=== PATIENT | male | born 2000 | race Caucasian/White ===

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

== ENCOUNTER 2022-01-13 14:02 | Inpatient (IN) | payer MEDICAID ==
[~2022-01-13] VITALS: Ht 180 cm; Wt 53.0 kg
[~2022-01-13 14:02] MED LIST changes: +ASCO500C17 PO; +CHOL10004 PO; +CRAN400C PO; +INSU100I48 SQ; +LISI10TA25 PO; +MTP25TSR PO; +MULT-1136 PO; +PANT40TA52 PO; +TRAZ-227 PO
[2022-01-13] MEDS ORDERED: NS IV 1000 ML 1,000 ML IV STA (14:51)
--- NOTE | 2022-01-13 14:54 | ED General ---
General Chief Complaint: Glucose Problems Stated Complaint: SOA- HEART RACING - UNABLE TO EAT Source of Information: Patient Exam Limitations: No Limitations History of Present Illness Date Seen by Provider: Jan 13, 2022 Time Seen by Provider: 14:52 Initial Comments Patient is a 21-year-old male who presents ED with multiple complaints. He states he lost his job, girlfriend, home, life about 1-1/2 weeks ago. He states he has been homeless. Over the past few days has not been taking his insulin. He states he has not been eating or drinking. Frequent urination. Heart palpitations and racing. Patient is tearful on arrival. He reports smoking marijuana without any other drug use or alcohol use. Some mild chest tightness without shortness of breath. Chronic cough for the past month every day smoker. Denies abdominal pain vomiting diarrhea, headache, dizziness. No thoughts of wanting to hurt himself or anyone else. Refused behavioral health exam. Denies fever, neck pain, visual changes, dysuria, hematuria Allergies and Home Medications Allergies Coded Allergies: NKANo Known Allergies (Unverified Allergy, Mild, 02/08/09) Patient Home Medication List Home Medication List Reviewed: Yes Cholecalciferol (Vitamin D3) (Vitamin D3) 25 Mcg Tablet, 25 MCG PO DAILY, (Reported) Entered as Reported by: ESTHER JOHNSON on 01/01/22 1045 Insulin Degludec (Tresiba Flextouch U-100) 100 Unit/1 Ml Insuln.pen, 40 UNIT SQ HS, (Reported) Entered as Reported by: ESTHER JOHNSON on 01/01/22 1045 Insulin Lispro (Insulin Lispro Kwikpen U-100) 100 Unit/1 Ml Insuln.pen, UNIT SQ AC, (Reported) Entered as Reported by: ESTHER JOHNSON on 01/01/22 1045 Lisinopril (Lisinopril) 10 Mg Tablet, 5 MG PO DAILY Prescribed by: GERARDO ENNIS on 01/02/22 0950 Multivitamin (Multivitamin) 1 Each Tablet, 1 EACH PO DAILY, (Reported) Entered as Reported by: ESTHER JOHNSON on 01/01/22 1045 Pantoprazole Sodium (Pantoprazole Sodium) 40 Mg Tablet.dr, 40 MG PO DAILY Prescribed by: GERARDO ENNIS on 01/02/22 0950 Trazodone HCl (Trazodone HCl) 100 Mg Tablet, 100 MG PO HS, (Reported) Entered as Reported by: ESTHER JOHNSON on 01/01/22 1045 Review of Systems Review of Systems Constitutional: No chills, No diaphoresis, No fever, No malaise EENTM: No hearing loss, No ear pain, No blurred vision, No double vision, No mouth pain, No mouth swelling, No throat pain, No throat swelling Respiratory: cough; No dyspnea on exertion, No short of breath Cardiovascular: No chest pain, No edema; palpitations Gastrointestinal: No abdominal pain; diarrhea, nausea, vomiting Genitourinary: No decreased output, No discharge Skin: No change in color, No change in hair/nails Psychiatric/Neurological: Denies Anxiety, Denies Depressed All Other Systems Reviewed Negative Unless Noted: Yes Past Bhccnqk-Qzbovw-Cojutv Hx Immunizations Up To Date Tetanus Booster (TDap): Less than 5yrs First/Initial COVID19 Vaccinat: Nov 2020 Second COVID19 Vaccination Parveen: December 2020 Third COVID19 Vaccination Date: Nov 2020 Seasonal Allergies Seasonal Allergies: No Past Medical History Surgery/Hospitalization HX: PMH: TYPE 1 DM. Surgeries: Yes (BMT'S) Ear Surgery Respiratory: Yes Asthma Currently Using CPAP: No Currently Using BIPAP: No Cardiac: No Neurological: No Reproductive Disorders: No Sexually Transmitted Disease: No HIV/AIDS: No Genitourinary: No Gastrointestinal: No Musculoskeletal: No Endocrine: Yes Diabetes, Insulin dep HEENT: Yes Chronic Ear Infection Loss of Vision: Denies Hearing Impairment: Denies Cancer: No Psychosocial: Yes Depression Integumentary: No Blood Disorders: No Family Medical History Cardiovascular disease 19 MOTHER Kidney disease 19 MOTHER Heart Disease, Renal Disease Physical Exam Vital Signs Vital Signs - First Documented 01/13/22 14:35 Temp 36.3 Pulse 97 Resp 16 B/P (MAP) 122/83 (96) Pulse Ox 100 O2 Delivery Room Air Capillary Refill : Height, Weight, BMI Height: 5'11.00" Weight: 130lbs. oz. 58.243113ga; 17.28 BMI Method:Actual General Appearance: No Apparent Distress, WD/WN Eyes: Bilateral Eye Normal Inspection, Bilateral Eye PERRL, Bilateral Eye EOMI HEENT: PERRL/EOMI, TMs Normal, Normal ENT Inspection, Pharynx Normal Neck: Full Range of Motion, Normal Inspection, Non Tender, Supple Respiratory: Chest Non Tender, Lungs Clear, Normal Breath Sounds, No Accessory Muscle Use, No Respiratory Distress Cardiovascular: Regular Rate, Rhythm, No Edema, No Gallop, No JVD Gastrointestinal: Normal Bowel Sounds, No Organomegaly, No Pulsatile Mass, Non Tender Back: Normal Inspection, No CVA Tenderness, No Vertebral Tenderness Extremity: Normal Capillary Refill, Normal Inspection, Normal Range of Motion, Non Tender, No Calf Tenderness Neurologic/Psychiatric: Alert, Oriented x3, No Motor/Sensory Deficits, Normal 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7 g/dL Hematocrit 53 40-54 % Mean Corpuscular Volume 90 80-99 fL Mean Corpuscular Hemoglobin 32 25-34 pg Mean Corpuscular Hemoglobin Concent 35 32-36 g/dL Red Cell Distribution Width 12.2 10.0-14.5 % Platelet Count 352 130-400 10^3/uL Mean Platelet Volume 10.0 9.0-12.2 fL Immature Granulocyte % (Auto) 2 % Neutrophils (%) (Auto) 65 42-75 % Lymphocytes (%) (Auto) 24 12-44 % Monocytes (%) (Auto) 7 0-12 % Eosinophils (%) (Auto) 2 0-10 % Basophils (%) (Auto) 1 0-10 % Neutrophils # (Auto) 6.9 1.8-7.8 10^3/uL Lymphocytes # (Auto) 2.5 1.0-4.0 10^3/uL Monocytes # (Auto) 0.7 0.0-1.0 10^3/uL Eosinophils # (Auto) 0.2 0.0-0.3 10^3/uL Basophils # (Auto) 0.1 0.0-0.1 10^3/uL Immature Granulocyte # (Auto) 0.2 H 0.0-0.1 10^3/uL Sodium Level 132 L 135-145 MMOL/L Potassium Level 4.9 3.6-5.0 MMOL/L Chloride Level 99 98-107 MMOL/L Carbon Dioxide Level 8 *L 21-32 MMOL/L Anion Gap 25 H 5-14 MMOL/L Blood Urea Nitrogen 12 7-18 MG/DL Creatinine 1.70 H 0.60-1.30 MG/DL Estimat Glomerular Filtration Rate 59 BUN/Creatinine Ratio 7 Glucose Level 381 H 70-105 MG/DL Calcium Level 9.3 8.5-10.1 MG/DL Corrected Calcium 8.5-10.1 MG/DL Total Bilirubin 0.5 0.1-1.0 MG/DL Aspartate Amino Transf (AST/SGOT) 19 5-34 U/L Alanine Aminotransferase (ALT/SGPT) 34 0-55 U/L Alkaline Phosphatase 131 40-136 U/L Troponin I < 0.028 <0.028 NG/ML Total Protein 8.9 H 6.4-8.2 GM/DL Albumin 4.6 H 3.2-4.5 GM/DL Lipase 32 8-78 U/L Beta-Hydroxybutyrate (Chem panel) 11.53 H 0.00-0.27 MMOL/L Serum Alcohol < 10 <10 MG/DL Blood Gas Puncture Site UNK Blood Gas Patient Temperature 36.3 Arterial Blood pH 7.17 *L 7.37-7.43 Arterial Blood Partial Pressure CO2 11 *L 35-45 MMHG Arterial Blood Partial Pressure O2 110 H 79-93 MMHG Arterial Blood HCO3 4 *L 23-27 MMOL/L Arterial Blood Total CO2 4.1 *L 21.0-31.0 MMOL/L Arterial Blood Oxygen Saturation 98 94-100 % Arterial Blood Base Excess -24.0 L -2.5-2.5 MMOL/L Lloyd Test UNK Blood Gas Ventilator Setting NO Blood Gas Inspired Oxygen UNK My Orders Orders - IVAN PRIETO Cbc With Automated Diff (01/13/22 14:49) Comprehensive Metabolic Panel (01/13/22 14:49) Beta Hydroxybutyrate (01/13/22 14:49) Ua Culture If Indicated (01/13/22 14:49) Alcohol (01/13/22 14:49) Drug Screen Stat (Urine) (01/13/22 14:49) Ekg Tracing (01/13/22 14:49) Troponin I Kang (01/13/22 14:49) Chest 1 View, Ap/Pa Only (01/13/22 14:49) Lipase (01/13/22 14:49) Ns Iv 1000 Ml (Sodium Chloride 0.9%) (01/13/22 14:51) Arterial Blood Gas (01/13/22 15:26) Insulin (Regular) Human (Novolin R (Per (01/13/22 15:30) Insulin (Regular) Human (Novolin R (Per (01/13/22 15:33) Ed Admission (Communication) (01/13/22 16:41) Medications Given in ED Current Medications Medications Dose Ordered Sig/Stephanie Route Start Time Stop Time Status Last Admin Dose Admin Insulin Human Regular 10 unit ONCE ONCE IV 01/13/22 15:30 01/13/22 15:32 DC 01/13/22 15:34 10 UNIT Vital Signs/I&O 01/13/22 14:35 Temp 36.3 Pulse 97 Resp 16 B/P (MAP) 122/83 (96) Pulse Ox 100 O2 Delivery Room Air Capillary Refill : Point of Care Testing Finger Stick Blood Glucose: 350 ECG Comment Sinus rhythm, borderline short FL interval, 81 bpm, QRS duration 72 MS, QTc 436 MS Departure Communication (Admissions) Patient currently in DKA. Anion gap at 25. Slightly dehydrated. Was given a liter of fluid. Normal potassium. Patient Was given 10 units of IV insulin with a blood sugar 381. Bicarb of 5. Vital signs stable. History of DKA in the past. Elevated beta hydroxybutyrate. discussed patient with Dr. Ennis who accepts patient ICU. pH 7.17. Patient without any thoughts of wanting to hurt himself or anyone else. Patient appears emotional. Impression Primary Impression: DKA (diabetic ketoacidosis) Disposition: ADMITTED INPATIENT Condition: Stable Admissions Decision to Admit Reason: Admit from ER (Trauma) Decision to Admit/Date: Jan 13, 2022 Time/Decision to Admit Time: 16:40 Departure-Patient Inst. Referrals: GERARDO ENNIS DO (PCP/Family) Primary Care Physician IVAN PRIETO Jan 13, 2022 14:54
[2022-01-13 14:56] LABS: BASOPHILS # (AUTO) 0.1 10^3/uL (0.0-0.1); BASOPHILS % (AUTO) 1 % (0-10); EOSINOPHILS # (AUTO) 0.2 10^3/uL (0.0-0.3); EOSINOPHILS % (AUTO) 2 % (0-10); HEMATOCRIT 53 % (40-54); HEMOGLOBIN 18.6 g/dL (13.3-17.7); LYMPHOCYTES # (AUTO) 2.5 10^3/uL (1.0-4.0); LYMPHOCYTES % (AUTO) 24 % (12-44); MEAN CORPUSCULAR HEMOGLOBIN 32 pg (25-34); MEAN CORPUSCULAR HGB CONC 35 g/dL (32-36); MEAN CORPUSCULAR VOLUME 90 fL (80-99); MONOCYTES # (AUTO) 0.7 10^3/uL (0.0-1.0); MONOCYTES % (AUTO) 7 % (0-12); NEUTROPHILS # (AUTO) 6.9 10^3/uL (1.8-7.8); NEUTROPHILS % (AUTO) 65 % (42-75); PLATELET COUNT 352 10^3/uL (130-400); WHITE BLOOD COUNT 10.6 10^3/uL (4.3-11.0)
[2022-01-13 15:09] LABS: ALBUMIN 4.6 GM/DL (3.2-4.5); CHLORIDE 99 MMOL/L (98-107); POTASSIUM 4.9 MMOL/L (3.6-5.0); SODIUM 132 MMOL/L (135-145)
[2022-01-13 15:10] LABS: CALCIUM 9.3 MG/DL (8.5-10.1)
[2022-01-13 15:11] LABS: GLUCOSE 381 MG/DL (70-105); TOTAL PROTEIN 8.9 GM/DL (6.4-8.2)
[2022-01-13 15:13] LABS: BILIRUBIN,TOTAL 0.5 MG/DL (0.1-1.0)
[2022-01-13 15:15] LABS: ALKALINE PHOSPHATASE 131 U/L (40-136); GFR ESTIMATED 59
[2022-01-13 15:16] LABS: BUN/CREATININE RATIO 7
[2022-01-13 15:18] LABS: ALANINE AMINOTRANSFERASE 34 U/L (0-55); LIPASE 32 U/L (8-78)
--- NOTE | 2022-01-13 15:22 | Diagnostic Imaging Report ---
INDICATION: Ketoacidosis. TIME OF EXAM: 3:12 PM. COMPARISON: Correlation is made with the prior chest from 12/05/2020. FINDINGS: The heart size is normal. The pulmonary vascularity is unremarkable. The lungs are clear. No infiltrate, effusion, or pneumothorax is detected. IMPRESSION: No acute cardiopulmonary process is detected. Dictated by: Dictated on workstation # [id number]
[2022-01-13 15:23] LABS: CARBON DIOXIDE 8 MMOL/L (21-32)
[2022-01-13] MEDS ORDERED: inSUlin (REGULAR) HUMAN 1 UNIT/0.01 ML (CHARGE PER UNIT) IV ONE (15:30)
[2022-01-13] MEDS ORDERED: inSUlin (REGULAR) HUMAN 1 UNIT/0.01 ML (CHARGE PER UNIT) ONE (15:33)
[2022-01-13 15:49] LABS: ABG OXYGEN SATURATION 98 % (94-100); ABG PO2 110 MMHG (79-93)
[2022-01-13 15:53] LABS: ABG PCO2 11 MMHG (35-45); ABG PH 7.17 (7.37-7.43)
[2022-01-13 15:54] LABS: ABG TCO2 4.1 MMOL/L (21.0-31.0); PATIENT TEMP 36.3; VENTILATOR NO
[2022-01-13 17:00] VITALS: BP 107/62
[2022-01-13] MEDS ORDERED: ACETAMINOPHEN 325 MG TABLET PO PRN (17:30)
[2022-01-13] MEDS ORDERED: NS IV 1000 ML 1,000 ML IV SCH (17:30)
[2022-01-13] MEDS ORDERED: ENOXAPARIN 40 MG/0.4 ML (LOVENOX) SYR SC SCH (17:30)
[2022-01-13] MEDS ORDERED: ONDANSETRON 4 MG/2 ML (SDV) Z0FRAN IVP PRN (17:30)
[2022-01-13] MEDS ORDERED: POTASSIUM CL 10MEQ/50ML IVPB 50 ML IV SCH (17:30)
--- NOTE | 2022-01-13 17:50 | Tele-ICU Consult ---
History of Present Illness History of Present Illness Date Seen by Provider: Jan 13, 2022 Time Seen by Provider: 17:49 Date of Admission (Tele-ICU Physician , consultation) Available chart/ vitals / labs / Images reviewed H&P is from ER notes Patient's information available about PMH, Shx, Fhx allergy reviewed in EMR. ROS as per chart and RN report Now in ICU, hemodynamically stable AAO , on RA Video assessment done using teleICU camera, rest of exam as per RN Discussed with RN. Consultants: Hospital course: A/P DKA *Insulin drip continue to monitor for resolution of acidosis, AG and electrolytes. Continue hydration. MIRTHA - dehydration, hypotension - cont IVF - follow closely Leukocytosis - reactive ? , chest x-ray was normal , UA not done >off ABX , follow Lines : peroph (Central Line Necessity Reviewed) Moreno: OG: Nutrition: Analgesia: Anxiety/ delirium VTE Prophylaxis: yuli 40 Stress Ulcer Prophylaxis: na Plans in collaboration with bedside consultants and IM MDs. Discussed with RN to reach out if any questions or concerns A total of 20 minutes of critical care time was devoted to this patient today, required to treat and/or prevent further deterioration of critical care condition ( as above ) . Allergies and Home Medications Allergies Coded Allergies: NKANo Known Allergies (Unverified Allergy, Mild, 02/08/09) Home Medications Cholecalciferol (Vitamin D3) 25 Mcg Tablet, 25 MCG PO DAILY, (Reported) Insulin Degludec 100 Unit/1 Ml Insuln.pen, 40 UNIT SQ HS, (Reported) LAST FILLED 09-08-2021 #5 PENS/30 DAY SUPPLY Insulin Lispro 100 Unit/1 Ml Insuln.pen, UNIT SQ AC, (Reported) LAST FILLED 07-29-2021 #5 PENS Lisinopril 10 Mg Tablet, 5 MG PO DAILY Changed to 1/2 tablet daily--5mg Prescribed by: GERARDO ENNIS on 01/02/22 0950 Multivitamin 1 Each Tablet, 1 EACH PO DAILY, (Reported) Pantoprazole Sodium 40 Mg Tablet.dr, 40 MG PO DAILY Prescribed by: GERARDO ENNIS on 01/02/22 0950 Trazodone HCl 100 Mg Tablet, 100 MG PO HS, (Reported) LAST FILLED 10-06-2021 #30/30 DAY SUPPLY Past Medical/Social/Family Hx Patient Social History Smoking Status: Current Everyday Smoker Substance use?: Yes Substance type: Marijuana Alcohol Use?: No Immunizations Up To Date First/Initial COVID19 Vaccinat: Nov 2020 Second COVID19 Vaccination Parveen: UNKNOWN DATE Current Status Advance Directives: No Primary Language: Icelandic Preferred Spoken Language: Icelandic Review of Systems Constitutional: see HPI Focused Exam Height, Weight, BMI Height: 5'11.00" Weight: 130lbs. oz. 58.277900gl; 16.00 BMI Method:Actual Exam Exam Patient acknowledged, consented, and participated in this virtual visit which was conducted using real time audio/video Vital Signs Date Time Temp Pulse Resp B/P (MAP) Pulse Ox O2 Delivery O2 Flow Rate FiO2 01/13/22 17:00 85 16 107/62 98 Room Air 01/13/22 14:35 36.3 97 16 122/83 (96) 100 Room Air Height & Weight Height: 5'11.00" Weight: 130lbs. oz. 58.039988sd; 16.00 BMI Method:Actual General Appearance: No Apparent Distress, WD/WN HEENT: PERRL/EOMI, TMs Normal, Normal ENT Inspection, Pharynx Normal Neck: Full Range of Motion, Normal Inspection, Non Tender, Supple Respiratory: Chest Non Tender, Lungs Clear, Normal Breath Sounds, No Accessory Muscle Use, No Respiratory Distress Cardiovascular: Regular Rate, Rhythm, No Edema, No Gallop, No JVD Capillary Refill: Less Than 3 Seconds Extremity: Normal Capillary Refill, Normal Inspection, Normal Range of Motion, Non Tender, No Calf Tenderness Neurologic/Psychiatric: Alert, Oriented x3, No Motor/Sensory Deficits, Normal 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
[2022-01-13] MEDS: D5 1/2 NS 1000 ML IV SOLUTION 1,000 ML IV SCH (18:03)
[2022-01-13] MEDS: ENOXAPARIN INJECTION 30 MG/0.3 ML SYR SC SCH (18:07)
[2022-01-13] MEDS: POTASSIUM CL 10MEQ/50ML IVPB 50 ML IV SCH ×3 (18:17→22:51)
[2022-01-13 18:40] LABS: CHLORIDE 105 MMOL/L (98-107); POTASSIUM 4.5 MMOL/L (3.6-5.0); SODIUM 135 MMOL/L (135-145)
[2022-01-13 18:41] LABS: CALCIUM 8.8 MG/DL (8.5-10.1)
[2022-01-13 18:42] LABS: GLUCOSE 165 MG/DL (70-105)
[2022-01-13 18:46] LABS: BUN/CREATININE RATIO 8; CREATININE SERUM 1.45 MG/DL (0.60-1.30); GFR ESTIMATED 71
[2022-01-13 18:48] LABS: CARBON DIOXIDE < 5 MMOL/L (21-32)
[2022-01-13] MEDS: buPROPion 75 MG (WELLBUTRIN) TAB PO SCH (20:35)
[2022-01-13] MEDS: FAMOTIDINE 20MG/2ML IV (PEPCID) IVP SCH (20:35)
[2022-01-13] MEDS: 1/2 NS IV SOLUTION 1,000 ML IV SCH ×2 (20:35→22:01)
[2022-01-13 20:50] LABS: CALCIUM 7.5 MG/DL (8.5-10.1); CREATININE SERUM 1.39 MG/DL (0.60-1.30); POTASSIUM 4.5 MMOL/L (3.6-5.0)
[2022-01-14] MEDS: POTASSIUM CL 10MEQ/50ML IVPB 50 ML IV SCH ×7 (00:30→10:53)
[2022-01-14 00:34] LABS: POTASSIUM 3.7 MMOL/L (3.6-5.0)
[2022-01-14 00:35] LABS: CALCIUM 7.4 MG/DL (8.5-10.1)
[2022-01-14 00:39] LABS: CREATININE SERUM 1.02 MG/DL (0.60-1.30)
[2022-01-14] MEDS: 1/2 NS IV SOLUTION 1,000 ML IV SCH ×3 (01:57→11:59)
[2022-01-14 04:27] LABS: BASOPHILS # (AUTO) 0.1 10^3/uL (0.0-0.1); BASOPHILS % (AUTO) 1 % (0-10); EOSINOPHILS # (AUTO) 0.2 10^3/uL (0.0-0.3); EOSINOPHILS % (AUTO) 3 % (0-10); HEMATOCRIT 38 % (40-54); HEMOGLOBIN 13.6 g/dL (13.3-17.7); LYMPHOCYTES # (AUTO) 3.7 10^3/uL (1.0-4.0); LYMPHOCYTES % (AUTO) 42 % (12-44); MEAN CORPUSCULAR HEMOGLOBIN 31 pg (25-34); MEAN CORPUSCULAR HGB CONC 36 g/dL (32-36); MEAN CORPUSCULAR VOLUME 86 fL (80-99); MEAN PLATELET VOLUME 9.6 fL (9.0-12.2); MONOCYTES # (AUTO) 0.8 10^3/uL (0.0-1.0); MONOCYTES % (AUTO) 9 % (0-12); NEUTROPHILS % (AUTO) 45 % (42-75); PLATELET COUNT 233 10^3/uL (130-400); WHITE BLOOD COUNT 8.9 10^3/uL (4.3-11.0)
[2022-01-14 04:34] LABS: POTASSIUM 3.5 MMOL/L (3.6-5.0)
[2022-01-14 04:35] LABS: CALCIUM 7.5 MG/DL (8.5-10.1)
[2022-01-14 04:36] LABS: TOTAL PROTEIN 5.5 GM/DL (6.4-8.2)
[2022-01-14 04:38] LABS: BILIRUBIN,TOTAL 0.5 MG/DL (0.1-1.0)
[2022-01-14 04:40] LABS: CREATININE SERUM 0.99 MG/DL (0.60-1.30)
[2022-01-14 05:30] LABS: CLARITY,URINE SL CLOUDY; COLOR,URINE YELLOW; GLUCOSE, URINE (UA) 2+ (NEGATIVE); KETONES,URINE 2+ (NEGATIVE); LEUKOCYTE ESTERASE ,URINE NEGATIVE (NEGATIVE); NITRITE,URINE NEGATIVE (NEGATIVE); PROTEIN,URINE TRACE (NEGATIVE)
[2022-01-14 05:45] LABS: BACTERIA,URINE NEGATIVE /HPF; BILIRUBIN,URINE 1+ (NEGATIVE); HYALINE CASTS, URINE 0-2 /LPF; SQUAMOUS EPITHELIAL CELL,UR RARE /HPF; URINE OTHER FEW SPERM /HPF
[2022-01-14] MEDS: D5 1/2 NS 1000 ML IV SOLUTION 1,000 ML IV SCH ×2 (07:00→10:52)
[2022-01-14 07:36] LABS: POTASSIUM 3.6 MMOL/L (3.6-5.0)
[2022-01-14 07:37] LABS: CALCIUM 7.8 MG/DL (8.5-10.1)
[2022-01-14 07:41] LABS: CREATININE SERUM 0.95 MG/DL (0.60-1.30)
[2022-01-14] MEDS: FAMOTIDINE 20MG/2ML IV (PEPCID) IVP SCH ×2 (09:07→20:33)
[2022-01-14] MEDS: buPROPion 75 MG (WELLBUTRIN) TAB PO SCH ×3 (09:07→20:42)
[2022-01-14 10:08] LABS: CALCIUM 8.2 MG/DL (8.5-10.1); CREATININE SERUM 1.02 MG/DL (0.60-1.30); POTASSIUM 3.4 MMOL/L (3.6-5.0)
--- NOTE | 2022-01-14 11:19 | Tele-ICU Progress Note ---
Subjective Date Seen by a Provider: Jan 14, 2022 Time Seen by a Provider: 09:15 Subjective/Events-last exam (Tele-ICU Physician , consultation) Available chart/ vitals / labs / Images reviewed H&P is from ER notes Patient's information available about PMH, Shx, Fhx allergy reviewed in EMR. ROS as per chart and RN report Now in ICU, hemodynamically stable AAO , on RA Video assessment done using teleICU camera, rest of exam as per RN Discussed with RN. Consultants: A/P DKA *Insulin drip continue to monitor for resolution of acidosis, AG and electrolytes. Continue hydration. MIRTHA - dehydration, - IMPROVED - cont IVF - follow closely Leukocytosis - reactive ? , chest x-ray was normal , UA not done >off ABX , follow Lines : peroph (Central Line Necessity Reviewed) Moreno: OG: Nutrition: Analgesia: Anxiety/ delirium VTE Prophylaxis: yuli 40 Stress Ulcer Prophylaxis: na Plans in collaboration with bedside consultants and IM MDs. Discussed with RN to reach out if any questions or concerns A total of 13 minutes of critical care time was devoted to this patient today, required to treat and/or prevent further deterioration of critical care condition ( as above ) . Sepsis Event Evaluation Height, Weight, BMI Height: 5'11.00" Weight: 130lbs. oz. 58.620577dy; 16.00 BMI Method:Actual Exam Exam Patient acknowledged, consented, and participated in this virtual visit which was conducted using real time audio/video Vital Signs Date Time Temp Pulse Resp B/P (MAP) Pulse Ox O2 Delivery O2 Flow Rate FiO2 01/14/22 08:00 98 Room Air 01/14/22 08:00 36.5 01/14/22 07:00 82 01/14/22 06:00 72 14 105/59 99 Room Air 01/14/22 05:00 74 19 106/60 97 Room Air 01/14/22 04:00 64 10 106/61 100 Room Air 01/14/22 04:00 36.2 01/14/22 04:00 98 Room Air 01/14/22 03:00 70 17 104/61 98 Room Air 01/14/22 02:00 70 8 94/51 99 Room Air 01/14/22 01:00 76 01/14/22 01:00 76 20 101/59 97 Room Air 01/14/22 00:00 87 19 107/57 97 Room Air 01/14/22 00:00 98 Room Air 01/13/22 23:59 37.2 80 Room Air 01/13/22 23:00 75 20 109/60 98 Room Air 01/13/22 22:00 81 12 111/66 100 Room Air 01/13/22 21:00 79 17 97/61 100 Room Air 01/13/22 20:00 36.5 Room Air 01/13/22 20:00 36.5 01/13/22 20:00 77 16 114/68 100 Room Air 01/13/22 20:00 98 Room Air 01/13/22 19:00 78 25 122/68 100 Room Air 01/13/22 19:00 78 01/13/22 18:19 98 01/13/22 18:19 98 01/13/22 18:00 83 16 117/77 100 Room Air 01/13/22 17:00 90 7 122/80 100 Room Air 01/13/22 17:00 85 16 107/62 98 Room Air 01/13/22 14:35 36.3 97 16 122/83 (96) 100 Room Air I & O 01/14/22 07:00 Intake Total 1770 ml Output Total 1000 ml Balance 770 ml Height & Weight Height: 5'11.00" Weight: 130lbs. oz. 58.820056sx; 16.00 BMI Method:Actual General Appearance: No Apparent Distress, WD/WN HEENT: PERRL/EOMI, TMs Normal, Normal ENT Inspection, Pharynx Normal Neck: Full Range of Motion, Normal Inspection, Non Tender, Supple Respiratory: Chest Non Tender, Lungs Clear, Normal Breath Sounds, No Accessory Muscle Use, No Respiratory Distress Cardiovascular: Regular Rate, Rhythm, No Edema, No Gallop, No JVD Capillary Refill: Less Than 3 Seconds Extremity: Normal Capillary Refill, Normal Inspection, Normal Range of Motion, Non Tender, No Calf Tenderness Neurologic/Psychiatric: Alert, Oriented x3, No Motor/Sensory Deficits, Normal Mood/Affect, patient monitor II-XII Norm as Tested Skin: Normal Color, Warm/Dry Results Lab Laboratory Tests 01/13/22 14:47 01/13/22 17:50 01/13/22 20:10 01/14/22 00:10 01/14/22 04:18 01/14/22 07:14 01/14/22 09:36 Assessment/Plan Assessment/Plan ` AYLIN JACOBSON MD Jan 14, 2022 11:19
[2022-01-14] MEDS ORDERED: ASCO500T17 PO (11:41)
[2022-01-14] MEDS ORDERED: LISI10TA25 PO (11:41)
[2022-01-14] MEDS ORDERED: [UNRECOGNIZED DRUG - CODE] PO (11:41)
[2022-01-14 12:26] LABS: POTASSIUM 3.6 MMOL/L (3.6-5.0)
[2022-01-14 12:28] LABS: CALCIUM 8.1 MG/DL (8.5-10.1)
[2022-01-14 12:32] LABS: CREATININE SERUM 0.88 MG/DL (0.60-1.30)
--- NOTE | 2022-01-14 12:50 | History & Physical ---
History of Present Illness History of Present Illness Reason for visit/HPI This is a 21 yo male with known Type I diabetes mellitus with a history of noncompliance and recurrent DKA episode due to noncompliance. He had a recent admission for DKA less than 2 weeks ago. He was seen in my office yesterday in follow up on that hospital visit since he missed his 1 week follow up and stated he had not take any insulin or been checking his blood sugar for 3 days because his world was falling apart. He denied suicidal ideation but stated he just didn't care. He was using the f-word frequently and stated he was not eating or drinking and was very dehydrated and likely in DKA again but refused to be admitted. He did admit to depression and stated he had reached out to [facility] to see a counselor but did not have an appointment scheduled yet. He later called my office stating he wanted admission then called back within 30 minutes stating he was tired of f---ing waiting on us and was just going to go to the emergency room. He was evaluated in the ER and was found to once again be in DKA. He will be admitted to the ICU on an insulin drip with DKA protocol. Date of Admission Jan 13, 2022 at 16:42 Date Seen by a Provider: Jan 14, 2022 Time Seen by a Provider: 08:30 I consulted on this patient on 01/14/22 12:45 Attending Physician Gerardo Luther DO Admitting Physician Gerardo Luther DO Consult Allergies and Home Medications Allergies Coded Allergies: NKANo Known Allergies (Unverified Allergy, Mild, 02/08/09) Patient Home Medication List Home Medication List Reviewed: Yes Ascorbic Acid (Vitamin C) 500 Mg Tablet, 500 MG PO DAILY, (Reported) Entered as Reported by: ESTHER JOHNSON on 01/14/22 1141 Last Action: Reviewed Cholecalciferol (Vitamin D3) (Vitamin D3) 25 Mcg Tablet, 25 MCG PO DAILY, (Reported) Entered as Reported by: ESTHER JOHNSON on 01/01/22 1045 Last Action: Reviewed Insulin Degludec (Tresiba Flextouch U-100) 100 Unit/1 Ml Insuln.pen, 40 UNIT SQ HS, (Reported) Entered as Reported by: ESTHER JOHNSON on 01/01/22 1045 Last Action: Reviewed Insulin Lispro (Insulin Lispro Kwikpen U-100) 100 Unit/1 Ml Insuln.pen, UNIT SQ AC, (Reported) Entered as Reported by: ESTHER JOHNSON on 01/01/221044 Last Action: Reviewed Lisinopril (Lisinopril) 10 Mg Tablet, 5 MG PO 1800, (Reported) Entered as Reported by: ESTHER JOHNSON on 01/14/221140 Last Action: Reviewed Multivitamin (Multivitamin) 1 Each Tablet, 1 EACH PO DAILY, (Reported) Entered as Reported by: ESTHER JOHNSON on 01/01/221044 Last Action: Reviewed Trazodone HCl (Trazodone HCl) 100 Mg Tablet, 100 MG PO HS PRN for SLEEP, (Reported) Entered as Reported by: ESTHER JOHNSON on 01/01/221044 Last Action: Reviewed Zinc Citrate (Zinc) 16.7 Mg Tab.chew, 16.7 MG PO DAILY, (Reported) Entered as Reported by: ESTHER JOHNSON on 01/14/221140 Last Action: Reviewed Discontinued Medications Lisinopril (Lisinopril) 10 Mg Tablet, 5 MG PO DAILY Discontinued Reason: No Longer Taking Prescribed by: GERARDO LUTHER on 01/02/22949 Last Action: Discontinued Pantoprazole Sodium (Pantoprazole Sodium) 40 Mg Tablet.dr, 40 MG PO DAILY Discontinued Reason: No Longer Taking Prescribed by: GERARDO LUTHER on 01/02/22949 Last Action: Discontinued Past [place]-Klbhiq-Rzflbd Hx Patient Social History Smoking Status: Current Everyday Smoker Substance use?: Yes Substance type: Marijuana Alcohol Use?: No Immunizations Up To Date Date of Influenza Vaccine: Aug 05, 2020 First/Initial COVID19 Vaccinat: Nov 2020 Second COVID19 Vaccination Parveen: UNKNOWN DATE Seasonal Allergies Seasonal Allergies: No Current Status Advance Directives: No Primary Language: Burmese Preferred Spoken Language: Burmese Past Medical History Surgeries: Ear Surgery Asthma Currently Using CPAP: No Currently Using BIPAP: No Sexually Transmitted Disease: No HIV/AIDS: No Diabetes, Insulin dep Chronic Ear Infection Loss of Vision: Denies Hearing Impairment: Denies Depression Blood Disorders: No Family Medical History Cardiovascular disease 19 MOTHER Kidney disease 19 MOTHER Heart Disease, Renal Disease Review of Systems Constitutional: weakness, weight loss EENTM: No see HPI, No no symptoms reported, No ear discharge, No hearing loss, No ear pain, No blurred vision, No double vision, No eye pain, No tearing, No vision loss, No dental problems, No hoarseness, No mouth pain, No mouth swelling, No epistaxis, No nose congestion, No nose pain, No throat pain, No throat swelling, No other Respiratory: No no symptoms reported, No see HPI, No cough, No dyspnea on exertion, No hemoptysis, No orthopnea, No phlegm, No short of breath, No strido r, No wheezing, No other Cardiovascular: No no symptoms reported, No see HPI, No chest pain, No edema, No Hx of Intervention, No palpitations, No syncope, No vascular heart diseas, No other Gastrointestinal: loss of appetite, nausea Genitourinary: No no symptoms reported, No see HPI, No decreased output, No discharge, No dysuria, No frequency, No hematuria, No hesitancy, No incontinence, No nocturia, No pain, No other Musculoskeletal: No no symptoms reported, No see HPI, No back pain, No gout, No joint pain, No joint swelling, No muscle pain, No muscle stiffness, No muscle cramps, No muscle twitching, No muscle weakness, No neck pain, No other Skin: No no symptoms reported, No see HPI, No change in color, No change in hair/nails, No dryness, No hx of skin cancer, No lesions, No lumps, No pruritus, No rash, No other Psychiatric/Neurological: Depressed Physical Exam Vital Signs Vital Signs - First Documented 01/13/22 14:35 Temp 36.3 Pulse 97 Resp 16 B/P (MAP) 122/83 (96) Pulse Ox 100 O2 Delivery Room Air Capillary Refill : Less Than 3 Seconds Height, Weight, BMI Height: 5'11.00" Weight: 130lbs. oz. 58.295020wb; 16.00 BMI Method:Actual General Appearance: No Apparent Distress HEENT: Other (MM dry) Respiratory: Lungs Clear Cardiovascular: Regular Rate, Rhythm Gastrointestinal: Normal Bowel Sounds, Non Tender, Soft Rectal: Deferred Back: No CVA Tenderness Extremity: Non Tender, No Calf Tenderness, No Pedal Edema Neurologic/Psychiatric: Alert, Oriented x3, Depressed Affect Skin: Warm/Dry Comments Laboratory Tests 01/13/22 14:46: Glucometer 350H 01/13/22 14:47: White Blood Count 10.6, Red Blood Count 5.87H, Hemoglobin 18.6H, Hematocrit 53, Mean Corpuscular Volume 90, Mean Corpuscular Hemoglobin 32, Mean Corpuscular Hemoglobin Concent 35, Red Cell Distribution Width 12.2, Platelet Count 352, Mean Platelet Volume 10.0, Immature Granulocyte % (Auto) 2, Neutrophils (%) (Auto) 65, Lymphocytes (%) (Auto) 24, Monocytes (%) (Auto) 7, Eosinophils (%) (Auto) 2, Basophils (%) (Auto) 1, Neutrophils # (Auto) 6.9, Lymphocytes # (Auto) 2.5, Monocytes # (Auto) 0.7, Eosinophils # (Auto) 0.2, Basophils # (Auto) 0.1, Immature Granulocyte # (Auto) 0.2H, Sodium Level 132L, Potassium Level 4.9, Chloride Level 99, Carbon Dioxide Level 8*L, Anion Gap 25H, Blood Urea Nitrogen 12, Creatinine 1.70H, Estimat Glomerular Filtration Rate 59, BUN/Creatinine Ratio 7, Glucose Level 381H, Calcium Level 9.3, Corrected Calcium , Total Bilirubin 0.5, Aspartate Amino Transf (AST/SGOT) 19, Alanine Aminotransferase (ALT/SGPT) 34, Alkaline Phosphatase 131, Troponin I < 0.028, Total Protein 8.9H, Albumin 4.6H, Lipase 32, Beta-Hydroxybutyrate (Chem panel) 11.53H, Serum Alcohol < 10 01/13/22 15:43: Blood Gas Puncture Site UNK, Blood Gas Patient Temperature 36.3, Arterial Blood pH 7.17*L, Arterial Blood Partial Pressure CO2 11*L, Arterial Blood Partial Pressure O2 110H, Arterial Blood HCO3 4*L, Arterial Blood Total CO2 4.1*L, Arterial Blood Oxygen Saturation 98, Arterial Blood Base Excess -24.0L, Lloyd Test UNK, Blood Gas Ventilator Setting NO, Blood Gas Inspired Oxygen UNK 01/13/22 16:18: Glucometer 273H 01/13/22 17:36: Glucometer 190H 01/13/22 17:50: Sodium Level 135, Potassium Level 4.5, Chloride Level 105, Carbon Dioxide Level < 5*L, Anion Gap 25H, Blood Urea Nitrogen 11, Creatinine 1.45H, Estimat Glomerular Filtration Rate 71, BUN/Creatinine Ratio 8, Glucose Level 165H, Calcium Level 8.8, Beta-Hydroxybutyrate (Chem panel) 8.61H 01/13/22 18:49: Glucometer 201H 01/13/22 20:10: Sodium Level 136, Potassium Level 4.5, Chloride Level 108H, Carbon Dioxide Level 8*L, Anion Gap 20H, Blood Urea Nitrogen 11, Creatinine 1.39H, Estimat Glomerular Filtration Rate 75, BUN/Creatinine Ratio 8, Glucose Level 249H, Calcium Level 7.5L 01/13/22 22:00: Glucometer 285H 01/13/22 23:08: Glucometer 234H 01/14/22 00:10: Glucometer 213H, Sodium Level 134L, Potassium Level 3.7, Chloride Level 111H, Carbon Dioxide Level 8*L, Anion Gap 15H, Blood Urea Nitrogen 8, Creatinine 1.02, Estimat Glomerular Filtration Rate 109, BUN/Creatinine Ratio 8, Glucose Level 227H, Calcium Level 7.4L 01/14/22 02:02: Glucometer 196H 01/14/22 03:10: Glucometer 213H 01/14/22 04:18: Glucometer 175H, White Blood Count 8.9, Red Blood Count 4.35, Hemoglobin 13.6#, Hematocrit 38L, Mean Corpuscular Volume 86, Mean Corpuscular Hemoglobin 31, Mean Corpuscular Hemoglobin Concent 36, Red Cell Distribution Width 12.1, Platelet Count 233, Mean Platelet Volume 9.6, Immature Granulocyte % (Auto) 1, Neutrophils (%) (Auto) 45, Lymphocytes (%) (Auto) 42, Monocytes (%) (Auto) 9, Eosinophils (%) (Auto) 3, Basophils (%) (Auto) 1, Neutrophils # (Auto) 4.0, Lymphocytes # (Auto) 3.7, Monocytes # (Auto) 0.8, Eosinophils # (Auto) 0.2, Basophils # (Auto) 0.1, Immature Granulocyte # (Auto) 0.1, Sodium Level 133L, Potassium Level 3.5L, Chloride Level 112H, Carbon Dioxide Level 11L, Anion Gap 10, Blood Urea Nitrogen 6L, Creatinine 0.99, Estimat Glomerular Filtration Rate 113, BUN/Creatinine Ratio 6, Glucose Level 172H, Calcium Level 7.5L, Corrected Calcium 8.3L, Total Bilirubin 0.5, Aspartate Amino Transf (AST/SGOT) 13, Alanine Aminotransferase (ALT/SGPT) 20, Alkaline Phosphatase 78, Total Protein 5.5L, Albumin 3.0L 01/14/22 05:08: Glucometer 170H 01/14/22 05:24: Urine Color YELLOW, Urine Clarity SL CLOUDY, Urine pH 6.0, Urine Specific [place] 1.020, Urine Protein TRACEH, Urine Glucose (UA) 2+H, Urine Ketones 2+H, Urine Nitrite NEGATIVE, Urine Bilirubin 1+H, Urine Urobilinogen 0.2, Urine Leukocyte Esterase NEGATIVE, Urine RBC (Auto) NEGATIVE, Urine RBC NONE, Urine WBC NONE, Urine Squamous Epithelial Cells RARE, Urine Crystals NONE, Urine Bacteria NEGATIVE, Urine Casts PRESENT, Urine Hyaline Casts 0-2H, Urine Mucus NEGATIVE, Urine Other FEW SPERMH, Urine Culture Indicated NO 01/14/22 05:59: Glucometer 154H 01/14/22 07:05: Glucometer 116H 01/14/22 07:14: Sodium Level 136, Potassium Level 3.6, Chloride Level 114H, Carbon Dioxide Level 13L, Anion Gap 9, Blood Urea Nitrogen 6L, Creatinine 0.95, Estimat Glomerular Filtration Rate 118, BUN/Creatinine Ratio 6, Glucose Level 115H, Calcium Level 7.8L 01/14/22 08:01: Glucometer 116H 01/14/22 08:58: Glucometer 87 01/14/22 09:36: Sodium Level 136, Potassium Level 3.4L, Chloride Level 114H, Carbon Dioxide Level 14L, Anion Gap 8, Blood Urea Nitrogen 5L, Creatinine 1.02, Estimat Glomerular Filtration Rate 109, BUN/Creatinine Ratio 5, Glucose Level 126H, Calcium Level 8.2L 01/14/22 10:00: Glucometer 199H 01/14/22 10:52: Glucometer 158H 01/14/22 11:51: Glucometer 141H 01/14/22 12:10: Sodium Level 136, Potassium Level 3.6, Chloride Level 114H, Carbon Dioxide Level 13L, Anion Gap 9, Blood Urea Nitrogen 4L, Creatinine 0.88, Estimat Glomerular Filtration Rate 127, BUN/Creatinine Ratio 5, Glucose Level 146H, Calcium Level 8.1L 4/13/22 12:53: Glucometer 150H Assessment/Plan Assessment and Plan 1. DKA--admit to ICU on insulin drip with DKA protocol, will plan on staying in hospital until dehydration completely resolved and electrolytes back to normal due to noncompliance 2. Uncontrolled DMI--insulin requiring--patient was seeing [facility] and they continued to see him until he found a new adult forge tender, however, patient has missed the adult endocrinology appointments we have scheduled due to no transportation and we are again waiting on an appointmen to another forge tender 3. Depression--will start Wellbutrin and proceed with counseling as outpatient 4. 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 We have tried to get him both a insulin pump and continuous glucose monitor but needs endocrinology to sign off on these Admission Diagnosis Admission Status: Inpatient Order (span 2 midnights) Reason for Inpatient Admission: Will need at least 48hrs of aggressive IVFs Clinical Quality Measures Smoking Cessation Counseling: Counseling-Asymptomatic: 3-10 minutes GERARDO LUTHER DO Jan 14, 2022 12:50
[2022-01-14] MEDS: 1/2 NS W/KCL 20 MEQ/L 1,000 ML IV SCH ×2 (13:07→20:01)
[2022-01-14 15:08] LABS: AMPHETAMINE SCREEN, URINE NEGATIVE (NEGATIVE); BARBITURATE SCREEN URINE NEGATIVE (NEGATIVE); BENZODIAZEPINES SCREEN URINE NEGATIVE (NEGATIVE); CANNABINOID SCREEN, URINE POSITIVE (NEGATIVE); COCAINE SCREEN URINE NEGATIVE (NEGATIVE); METHADONE STAT NEGATIVE (NEGATIVE); METHAMPHETAMINE SCREEN URINE S NEGATIVE (NEGATIVE); OPIATE SCREEN URINE NEGATIVE (NEGATIVE); OXYCODONE STAT NEGATIVE (NEGATIVE); PROPOXYPHENE STAT NEGATIVE (NEGATIVE); TRICYCLIC ANTIDEPRESSANTS SCRE NEGATIVE (NEGATIVE)
[2022-01-14] MEDS: inSUlin ASPART (NovoLOG) 1 UNIT/0.01 ML (CHARGE PER UNIT) SC SCH ×2 (15:29→20:07)
[2022-01-14 16:14] LABS: POTASSIUM 3.9 MMOL/L (3.6-5.0)
[2022-01-14 16:15] LABS: CALCIUM 8.2 MG/DL (8.5-10.1)
[2022-01-14 16:20] LABS: CREATININE SERUM 0.91 MG/DL (0.60-1.30)
[2022-01-14] MEDS: ENOXAPARIN INJECTION 30 MG/0.3 ML SYR SC SCH (18:40)
[2022-01-14 20:02] LABS: POTASSIUM 3.7 MMOL/L (3.6-5.0)
[2022-01-14 20:03] LABS: CALCIUM 8.5 MG/DL (8.5-10.1)
[2022-01-14 20:07] LABS: CREATININE SERUM 1.03 MG/DL (0.60-1.30)
[2022-01-14] MEDS ORDERED: DEXTROSE 50% 50 ML (IMS) SYR ONE (23:38)
[2022-01-14] MEDS ORDERED: DEXTROSE 50% 50 ML (IMS) SYR IV ONE (23:45)
[2022-01-15] MEDS: 1/2 NS W/KCL 20 MEQ/L 1,000 ML IV SCH ×4 (02:00→22:58)
[2022-01-15] MEDS: inSUlin ASPART (NovoLOG) 1 UNIT/0.01 ML (CHARGE PER UNIT) SC SCH ×4 (07:00→20:50)
[2022-01-15 08:08] LABS: POTASSIUM 3.5 MMOL/L (3.6-5.0)
[2022-01-15 08:09] LABS: CALCIUM 8.2 MG/DL (8.5-10.1)
[2022-01-15 08:14] LABS: CREATININE SERUM 0.72 MG/DL (0.60-1.30); PHOSPHORUS 1.9 MG/DL (2.3-4.7)
[2022-01-15 08:17] LABS: MAGNESIUM 1.8 MG/DL (1.6-2.4)
[2022-01-15] MEDS: FAMOTIDINE 20MG/2ML IV (PEPCID) IVP SCH ×2 (08:25→20:50)
[2022-01-15] MEDS: buPROPion 75 MG (WELLBUTRIN) TAB PO SCH ×2 (08:25→20:50)
--- NOTE | 2022-01-15 09:20 | Tele-ICU Progress Note ---
Subjective Date Seen by a Provider: Jan 15, 2022 Time Seen by a Provider: 09:19 Subjective/Events-last exam Patient today denies any nausea vomiting or abdominal pain. His anion gap is improving. Hemodynamically stable. His potassium and phosphate are low which are being replaced.Video visit made and discussed with the patient and RN. Review of Systems ros per rn Sepsis Event Evaluation Height, Weight, BMI Height: 5'11.00" Weight: 130lbs. oz. 58.666477tb; 16.00 BMI Method:Actual Exam Exam Patient acknowledged, consented, and participated in this virtual visit which was conducted using real time audio/video Vital Signs Date Time Temp Pulse Resp B/P (MAP) Pulse Ox O2 Delivery O2 Flow Rate FiO2 01/15/22 08:00 64 17 119/73 100 Room Air 01/15/22 08:00 36.7 01/15/22 07:00 61 01/15/22 07:00 73 16 96/55 99 Room Air 01/15/22 06:00 67 26 117/65 99 Room Air 01/15/22 05:00 71 20 114/72 98 Room Air 01/15/22 04:00 37.0 Room Air 01/15/22 04:00 67 25 108/67 97 Room Air 01/15/22 04:00 96 Room Air 01/15/22 03:00 75 28 108/67 100 Room Air 01/15/22 02:00 77 29 112/66 100 Room Air 01/15/22 01:00 71 01/15/22 01:00 73 21 109/64 98 Room Air 01/15/22 00:00 96 Room Air 01/15/22 00:00 93 19 108/65 99 Room Air 01/14/22 23:59 36.9 Room Air 01/14/22 23:00 83 25 100/55 99 Room Air 01/14/22 22:00 80 24 104/68 99 Room Air 01/14/22 21:00 80 27 120/73 100 Room Air 01/14/22 20:00 37.1 Room Air 01/14/22 20:00 96 Room Air 01/14/22 20:00 77 22 113/73 100 Room Air 01/14/22 19:00 76 23 107/65 99 Room Air 01/14/22 19:00 91 01/14/22 18:00 81 25 105/64 100 Room Air 01/14/22 17:00 85 18 108/70 100 Room Air 01/14/22 16:00 70 18 104/64 100 Room Air 01/14/22 16:00 98 Room Air 01/14/22 15:45 36.4 01/14/22 15:00 71 23 94/52 100 Room Air 01/14/22 14:00 75 23 104/66 100 Room Air 01/14/22 13:00 74 01/14/22 13:00 78 19 110/72 100 Room Air 01/14/22 12:00 98 Room Air 01/14/22 12:00 62 22 95/62 100 Room Air 01/14/22 11:39 37.1 01/14/22 11:00 77 11 107/80 100 Room Air 01/14/22 10:00 69 16 100/64 100 Room Air I & O 01/15/22 07:00 Intake Total 3160 ml Output Total 5200 ml Balance -2040 ml Height & Weight Height: 5'11.00" Weight: 130lbs. oz. 58.425936jp; 16.00 BMI Method:Actual General Appearance: No Apparent Distress HEENT: Other (MM dry) Neck: Full Range of Motion, Normal Inspection, Non Tender, Supple Respiratory: Lungs Clear Cardiovascular: Regular Rate, Rhythm Capillary Refill: Less Than 3 Seconds Extremity: Non Tender, No Calf Tenderness, No Pedal Edema Neurologic/Psychiatric: Alert, Oriented x3, Depressed Affect Skin: Warm/Dry Other comments PE PER RN AND ATTENDING PHYSICIAN Results Lab Laboratory Tests 01/13/22 14:47 01/13/22 17:50 01/13/22 20:10 01/14/22 00:10 01/14/22 04:18 01/14/22 07:14 01/14/22 09:36 01/14/22 12:10 01/14/22 15:55 01/14/22 19:40 01/15/22 07:42 Assessment/Plan Assessment/Plan 1. Diabetic ketoacidosis on insulin drip improving and anion gap improving. 2. Electrolyte imbalance with hypokalemia and hypophosphatemia. Recommendations 1. We will replace potassium phosphate. 2. Suggest to discontinue insulin drip and start sliding scale coverage today. 3. From critical care point of view he may be transferred out of the ICU. Critical Care: Critically Ill Patient Time spent with patient (mins): 20 PATSY GARG MD Jan 15, 2022 09:20
[2022-01-15] MEDS ORDERED: POTASSIUM PHOSPHATE INJ 30 MM in NS (IVPB) 250 ML IV ONE (10:00)
[2022-01-15] MEDS: ENOXAPARIN INJECTION 30 MG/0.3 ML SYR SC SCH (16:25)
--- NOTE | 2022-01-15 18:52 | Progress Note ---
Subjective Date Seen by a Provider: Jan 15, 2022 Time Seen by a Provider: 12:30 Subjective/Events-last exam Fwup DKA, Uncontrolled DMI--with noncompliance, depression. Feeling better. No further nausea and vomiting. Still fatigued. Objective Exam Vital Signs Date Time Temp Pulse Resp B/P (MAP) Pulse Ox O2 Delivery O2 Flow Rate FiO2 01/15/22 16:25 37.2 81 20 121/74 100 Room Air 01/15/22 15:40 Room Air 01/15/22 14:00 77 01/15/22 13:00 72 01/15/22 13:00 83 01/15/22 12:00 80 01/15/22 12:00 98 Room Air 01/15/22 10:00 79 13 100 Room Air 01/15/22 09:00 72 8 108/79 100 Room Air 01/15/22 08:00 64 17 119/73 100 Room Air 01/15/22 08:00 36.7 01/15/22 08:00 98 Room Air 01/15/22 07:00 61 01/15/22 07:00 73 16 96/55 99 Room Air 01/15/22 06:00 67 26 117/65 99 Room Air 01/15/22 05:00 71 20 114/72 98 Room Air 01/15/22 04:00 37.0 Room Air 01/15/22 04:00 67 25 108/67 97 Room Air 01/15/22 04:00 96 Room Air 01/15/22 03:00 75 28 108/67 100 Room Air 01/15/22 02:00 77 29 112/66 100 Room Air 01/15/22 01:00 71 01/15/22 01:00 73 21 109/64 98 Room Air 01/15/22 00:00 96 Room Air 01/15/22 00:00 93 19 108/65 99 Room Air 01/14/22 23:59 36.9 Room Air 01/14/22 23:00 83 25 100/55 99 Room Air 01/14/22 22:00 80 24 104/68 99 Room Air 01/14/22 21:00 80 27 120/73 100 Room Air 01/14/22 20:00 37.1 Room Air 01/14/22 20:00 96 Room Air 01/14/22 20:00 77 22 113/73 100 Room Air 01/14/22 19:00 76 23 107/65 99 Room Air 01/14/22 19:00 91 I & O 01/15/22 07:00 Intake Total 3160 ml Output Total 5200 ml Balance -2040 ml Capillary Refill : Less Than 3 Seconds General Appearance: No Apparent Distress Respiratory: Lungs Clear Cardiovascular: Regular Rate, Rhythm Gastrointestinal: normal bowel sounds, non tender, soft Extremity: Non Tender, No Calf Tenderness, No Pedal Edema Skin: Warm/Dry Results Lab Laboratory Tests 01/14/22 19:40: Sodium Level 137, Potassium Level 3.7, Chloride Level 111H, Carbon Dioxide Level 16L, Anion Gap 10, Blood Urea Nitrogen 6L, Creatinine 1.03, Estimat Glomerular Filtration Rate 107, BUN/Creatinine Ratio 6, Glucose Level 122H, Calcium Level 8.5 01/14/22 23:32: Glucometer 52*L 01/14/22 23:34: Glucometer 59*L 01/15/22 00:03: Glucometer 183H 01/15/22 00:19: Glucometer 152H 01/15/22 02:00: Glucometer 139H 01/15/22 07:42: Sodium Level 140, Potassium Level 3.5L, Chloride Level 113H, Carbon Dioxide Level 17L, Anion Gap 10, Blood Urea Nitrogen 4L, Creatinine 0.72, Estimat Glomerular Filtration Rate 135, BUN/Creatinine Ratio 6, Glucose Level 75, C alcium Level 8.2L, Phosphorus Level 1.9L, Magnesium Level 1.8 01/15/22 10:09: Glucometer 294H 01/15/22 14:44: Glucometer 183H 01/15/22 17:25: Beta-Hydroxybutyrate (Chem panel) 0.19 Microbiology 01/13/22 MRSA Screen - Final, Complete MRSA not isolated Assessment/Plan Assessment/Plan Assess & Plan/Chief Complaint 1. DKA--improving, start levemir with SSI, keep aggressive IVFs going as patient still has CO2 of 17 and potassium of 3.5, transfer to medical floor and hopefully home tomorrow 2. Uncontrolled DMI with Noncompliance--once again discussed adult endocrinology referral as well as insulin pump 3. Depression--Wellbutrin started Clinical Quality Measures Admission Status Admission Dx 1. DKA--admit to ICU on insulin drip with DKA protocol, will plan on staying in hospital until dehydration completely resolved and electrolytes back to normal due to noncompliance 2. Uncontrolled DMI--insulin requiring--patient was seeing [facility] and they continued to see him until he found a new adult filler picker, however, patient has missed the adult endocrinology appointments we have scheduled due to no transportation and we are again waiting on an appointmen to another filler picker 3. Depression--will start Wellbutrin and proceed with counseling as outpatient 4. 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 We have tried to get him both a insulin pump and continuous glucose monitor but needs endocrinology to sign off on these Smoking Cessation Counseling: Counseling-Asymptomatic: 3-10 minutes GERARDO ENNIS DO Jan 15, 2022 18:52
[2022-01-16] MEDS: 1/2 NS W/KCL 20 MEQ/L 1,000 ML IV SCH (05:43)
[2022-01-16 06:12] LABS: POTASSIUM 3.7 MMOL/L (3.6-5.0)
[2022-01-16 06:14] LABS: CALCIUM 8.3 MG/DL (8.5-10.1)
[2022-01-16 06:18] LABS: CREATININE SERUM 0.66 MG/DL (0.60-1.30)
[2022-01-16] MEDS: inSUlin ASPART (NovoLOG) 1 UNIT/0.01 ML (CHARGE PER UNIT) SC SCH ×2 (06:41→10:56)
[2022-01-16] MEDS: buPROPion 75 MG (WELLBUTRIN) TAB PO SCH (08:23)
[2022-01-16] MEDS: FAMOTIDINE 20MG/2ML IV (PEPCID) IVP SCH (08:23)
[2022-01-16] MEDS ORDERED: BUPR-42 PO (10:01)
--- NOTE | 2022-01-16 11:27 | Discharge Summary ---
Diagnosis/Chief Complaint Date of Admission Jan 13, 2022 at 16:42 Date of Discharge Discharge Date: Jan 16, 2022 Discharge Diagnosis 1. DKA--resolved, well hydrated with electrolytes back to normal 2. Uncontrolled DMI--insulin requiring--patient was seeing endocrinology and they continued to see him until he found a new adult senior production planner, however, patient has missed the adult endocrinology appointments we have scheduled due to no transportation and we are again waiting on an appointmen to another senior production planner, waiting on insurance to approve insulin pump--omnipod, I have also suggested a CGM 3. Depression--started Wellbutrin and proceed with counseling as outpatient, he denies suicidal ideation 4. Noncompliance--patient always has an excuse as to why he does not take his i nsulin or why his blood sugars are out of control--couldn't get to the pharmacy to hop picker the insulin, can't eat properly due to cost of food, has no body fat so it hurts to take shots, hurts to poke his fingers, doesn't care, etc. He has been given resources through for food assistance, job assistance, housing options and transportation for appointments. He can live with is dad and that is his current plan Reason Hospital Visit This is a 21 yo male with known Type I diabetes mellitus with a history of noncompliance and recurrent DKA episode due to noncompliance. He had a recent admission for DKA less than 2 weeks ago. He was seen in my office yesterday in follow up on that hospital visit since he missed his 1 week follow up and stated he had not take any insulin or been checking his blood sugar for 3 days because his world was falling apart. He denied suicidal ideation but stated he just didn't care. He was using the f-word frequently and stated he was not eating or drinking and was very dehydrated and likely in DKA again but refused to be admitted. He did admit to depression and stated he had reached out to [facility] to see a counselor but did not have an appointment scheduled yet. He later called my office stating he wanted admission then called back within 30 minutes stating he was tired of f---ing waiting on us and was just going to go to the emergency room. He was evaluated in the ER and was found to once again be in DKA. He will be admitted to the ICU on an insulin drip with DKA protocol. Discharge Summary Hospital Course Was the Problem List Reviewed?: Yes Hospital Course This is a 21 yo male with known Type I diabetes mellitus with a history of noncompliance and recurrent DKA episode due to noncompliance. He had a recent admission for DKA less than 2 weeks ago. He was seen in my office the day of admission in follow up on that hospital visit since he missed his 1 week follow up and stated he had not take any insulin or been checking his blood sugar for at least 3 days because his world was falling apart. He denied suicidal ideation but stated he just didn't care. He was using the f-word frequently and stated he was not eating or drinking and was very dehydrated and likely in DKA again but refused to be admitted. He did admit to depression and stated he had reached out to [facility] to see a counselor but did not have an appointment scheduled yet. He later called my office stating he wanted admission then called back within 30 minutes stating he was tired of f---ing waiting on us and was just going to go to the emergency room. He was evaluated in the ER and was found to once again be in DKA. He will be admitted to the ICU on an insulin drip with DKA protocol. He was admitted to the ICU on DKA protocol with aggressive IVFs and electrolyte replacement as well as insulin drip. By the following day his blood sugar was down to the 100s so he was given insulin detemir and his insulin drip was discontinued 2hrs after the detemir was administered. His IVFs were changed to NS with KCL at 150ml/hr after the insulin drip was discontinued. He was eating an drinking with no nausea or vomiting. He was transferred to the medical floor and continued on IVFs. He was only given 10units of insulin detemir but had a blood sugar down to 60 the following morning. This responded to eating snacks. He did note that he did not feel the hypoglycemia so he is concerned that he is having hypoglycemia unawareness. I told him this is ano ther reason to pursue a CGM. His noncompliance is a big issue and he has many excuses why he can't control his blood sugar--he does not like to take his insulin because he does not have a lot of body fat so it hurts more, he has difficulty getting to the pharmacy and doctor's appointments due to transportation, he has difficulty keeping a job due to transportation, he just doesn't care but once again denies suicidal ideation. I kept him until is CO2 was back to normal and his electrolytes were stable for discharge. He is well hydrated with no signs of DKA on discharge and his last blood sugar was 143. I verified that he does have both tresiba and novolog at home so the only medication he will need to hop picker is the Wellbutrin which was started for his depression. He also has a counseling appointment scheduled for next week at [facility]. computing services director has given him many resources for food, housing and job. His current plan is that his Dad will pick him up on discharge and he will be staying with his Dad. He will follow up with me in my office in 1 week. Labs Laboratory Tests 01/13/22 14:46: Glucometer 350H 01/13/22 14:47: Red Blood Count 5.87H, Hemoglobin 18.6H, Immature Granulocyte # (Auto) 0.2H, Sodium Level 132L, Carbon Dioxide Level 8*L, Anion Gap 25H, Creatinine 1.70H, Glucose Level 381H, Total Protein 8.9H, Albumin 4.6H, Beta-Hydroxybutyrate (Chem panel) 11.53H 01/13/22 15:43: Arterial Blood pH 7.17*L, Arterial Blood Partial Pressure CO2 11*L, Arterial Blood Partial Pressure O2 110H, Arterial Blood HCO3 4*L, Arterial Blood Total CO2 4.1*L, Arterial Blood Base Excess -24.0L 01/13/22 16:18: Glucometer 273H 01/13/22 17:36: Glucometer 190H 01/13/22 17:50: Carbon Dioxide Level < 5*L, Anion Gap 25H, Creatinine 1.45H, Glucose Level 165H, Beta-Hydroxybutyrate (Chem panel) 8.61H 01/13/22 18:49: Glucometer 201H 01/13/22 20:10: Carbon Dioxide Level 8*L, Anion Gap 20H, Creatinine 1.39H, Glucose Level 249H, Chloride Level 108H, Calcium Level 7.5L 01/13/22 22:00: Glucometer 285H 01/13/22 23:08: Glucometer 234H 01/14/22 00:10: Glucometer 213H, Sodium Level 134L, Chloride Level 111H, Carbon Dioxide Level 8*L, Anion Gap 15H, Glucose Level 227H, Calcium Level 7.4L 01/14/22 02:02: Glucometer 196H 01/14/22 03:10: Glucometer 213H 01/14/22 04:18: Glucometer 175H, Hematocrit 38L, Sodium Level 133L, Potassium Level 3.5L, Chloride Level 112H, Carbon Dioxide Level 11L, Blood Urea Nitrogen 6L, Glucose Level 172H, Calcium Level 7.5L, Corrected Calcium 8.3L, Total Protein 5.5L, Albumin 3.0L 01/14/22 05:08: Glucometer 170H 01/14/22 05:24: Urine Protein TRACEH, Urine Glucose (UA) 2+H, Urine Ketones 2+H, Urine Bilirubin 1+H, Urine Hyaline Casts 0-2H, Urine Other FEW SPERMH, Urine Cannabinoids Screen POSITIVEH 01/14/22 05:59: Glucometer 154H 01/14/22 07:05: Glucometer 116H 01/14/22 07:14: Chloride Level 114H, Carbon Dioxide Level 13L, Blood Urea Nitrogen 6L, Glucose Level 115H, Calcium Level 7.8L 01/14/22 08:01: Glucometer 116H 01/14/22 08:58: 01/14/22 09:36: Potassium Level 3.4L, Chloride Level 114H, Carbon Dioxide Level 14L, Blood Urea Nitrogen 5L, Glucose Level 126H, Calcium Level 8.2L 01/14/22 10:00: Glucometer 199H 01/14/22 10:52: Glucometer 158H 01/14/22 11:51: Glucometer 141H 01/14/22 12:10: Chloride Level 114H, Carbon Dioxide Level 13L, Blood Urea Nitrogen 4L, Glucose Level 146H, Calcium Level 8.1L 01/14/22 12:53: Glucometer 150H 01/14/22 14:08: Glucometer 203H 01/14/22 14:52: Glucometer 170H 01/14/22 15:51: 01/14/22 15:55: Chloride Level 111H, Carbon Dioxide Level 15L, Blood Urea Nitrogen 4L, Glucose Level 118H, Calcium Level 8.2L, Beta-Hydroxybutyrate (Chem panel) 0.61H 01/14/22 16:49: 01/14/22 18:44: Glucometer 124H 01/14/22 19:40: Chloride Level 111H, Carbon Dioxide Level 16L, Blood Urea Nitrogen 6L, Glucose Level 122H 01/14/22 23:32: Glucometer 52*L 01/14/22 23:34: Glucometer 59*L 01/15/22 00:03: Glucometer 183H 01/15/22 00:19: Glucometer 152H 01/15/22 02:00: Glucometer 139H 01/15/22 07:42: Potassium Level 3.5L, Chloride Level 113H, Carbon Dioxide Level 17L, Blood Urea Nitrogen 4L, Calcium Level 8.2L, Phosphorus Level 1.9L 01/15/22 10:09: Glucometer 294H 01/15/22 14:44: Glucometer 183H 01/15/22 17:25: 01/15/22 20:02: Glucometer 216H 01/15/22 23:45: Glucometer 65L 01/16/22 02:06: 01/16/22 05:52: Glucometer 60*L, Chloride Level 110H, Blood Urea Nitrogen 5L, Glucose Level 60*L , Calcium Level 8.3L 01/16/22 06:34: Glucometer 143H 01/16/22 10:52: Glucometer 413*H Procedures None. Discharge Physical Examination Allergies: Coded Allergies: NKANo Known Allergies (Unverified Allergy, Mild, 02/08/09) Vitals & I&Os Vital Signs Date Time Temp Pulse Resp B/P (MAP) Pulse Ox O2 Delivery O2 Flow Rate FiO2 01/16/22 08:39 37.0 87 16 110/64 99 Room Air General Appearance: Alert, Oriented X3, Cooperative, No Acute Distress Respiratory: Clear to Auscultation Cardiovascular: Regular Rate Abdominal: Normal Bowel Sounds, Soft, No Tenderness Extremities: No Clubbing, No Cyanosis, No Edema Psych/Mental Status: Mental Status NL Discharge Home Medications Reviewed and agree with Discharge Medication list on patient's Discharge Instruction sheet Instructions to Patient/Family Please see electronic discharge instructions given to patient. Clinical Quality Measures Smoking Cessation Counseling: Counseling-Asymptomatic: 3-10 minutes GERARDO ENNIS DO Jan 16, 2022 11:27
== END 2022-01-16 11:10 | disposition home or self-care (01) | DRG 638 ==
LOC: EDUNIT# 14:02 → ER 14:03 → ICU 16:42 → 4TH 01-15 15:06
PROVIDERS: ADMIT Family Medicine; ATTEND Family Medicine
DX: E11.10 Type 2 diabetes mellitus with ketoacidosis without coma (principal); N17.9 Acute kidney failure, unspecified; E86.0 Dehydration; Z79.4 Long term (current) use of insulin; Z59.00 Homelessness unspecified; F32.A Depression, unspecified; I95.9 Hypotension, unspecified; D72.829 Elevated white blood cell count, unspecified; F17.210 Nicotine dependence, cigarettes, uncomplicated; Z91.14 Patient's other noncompliance with medication regimen; J45.909 Unspecified asthma, uncomplicated
CPT/HCPCS: 36415; 71045; 80048; 80053; 80306; 80320; 81000; 82010; 82805; 82947; 83690; 83735; 84100; 84484; 85025; 87081; 93005

== ENCOUNTER 2022-03-31 11:14 | Observation (INO) | payer MEDICAID ==
[~2022-03-31] VITALS: Ht 180 cm; Wt 58.8 kg
[~2022-03-31 11:14] MED LIST changes: +ASCO500T17 PO; +BUPR-42 PO; +[UNRECOGNIZED DRUG - CODE] PO
[2022-03-31] MEDS ORDERED: NS IV 1000 ML 1,000 ML ONE ×2 (11:38→14:31)
[2022-03-31] MEDS ORDERED: NS IV 1000 ML 1,000 ML IV STA (11:41)
[2022-03-31] MEDS ORDERED: ONDANSETRON 4 MG/2 ML (SDV) Z0FRAN IVP ONE (11:45)
--- NOTE | 2022-03-31 11:47 | ED General ---
General Chief Complaint: Glucose Problems Stated Complaint: N/V,ABD PAIN, WEAKNESS Source of Information: Patient Exam Limitations: No Limitations (IVAN PRIETO) History of Present Illness Date Seen by Provider: Mar 31, 2022 Time Seen by Provider: 11:45 Initial Comments Patient is a 21-year-old male who presents ED with flulike symptoms. Patient reports body aches chills weakness fatigue vomiting over the past 2 days. Patient states he has only eaten a sandwich secondary to decreased appetite. History of type 1 diabetes currently on insulin. Has not been using his insulin for the past few days secondary to decreased appetite and not eating. Patient reports frequent urination. Blood sugar on arrival 449. Patient reports a mild dry non-productive cough over the past several months. He he states is secondary to his lifestyle. History of smoking. Denies diarrhea, current Garry pain, chest pain, headache, dizziness, visual changes. Patient has been seen here in the past for DKA. Follows up with Dr. ENNIS. (IVAN PRIETO) Allergies and Home Medications Allergies Coded Allergies: AMADORANo Known Allergies (Unverified Allergy, Mild, 02/08/09) Patient Home Medication List Home Medication List Reviewed: Yes (IVAN PRIETO) Bupropion HCl (Wellbutrin Xl) 150 Mg Tab.er.24h, 150 MG PO DAILY Prescribed by: GERARDO ENNIS on 01/16/22 1001 Cholecalciferol (Vitamin D3) (Vitamin D3) 25 Mcg Tablet, 25 MCG PO DAILY, (Reported) Entered as Reported by: ESTHER JOHNSON on 01/01/22 1045 Insulin Degludec (Tresiba Flextouch U-100) 100 Unit/1 Ml Insuln.pen, 40 UNIT SQ HS, (Reported) Entered as Reported by: ESTHER JOHNSON on 01/01/22 1045 Insulin Lispro (Insulin Lispro Kwikpen U-100) 100 Unit/1 Ml Insuln.pen, UNIT SQ AC, (Reported) Entered as Reported by: ESTHER JOHNSON on 01/01/22 1045 Lisinopril (Lisinopril) 10 Mg Tablet, 5 MG PO 1800, (Reported) Entered as Reported by: ESTHER JOHNSON on 01/14/22 1141 Multivitamin (Multivitamin) 1 Each Tablet, 1 EACH PO DAILY, (Reported) Entered as Reported by: ESTHER JOHNSON on 01/01/22 1045 Trazodone HCl (Trazodone HCl) 100 Mg Tablet, 100 MG PO HS PRN for SLEEP, (Reported) Entered as Reported by: ESTHER JOHNSON on 01/01/22 1045 Review of Systems Review of Systems Constitutional: chills, malaise, weakness EENTM: No blurred vision, No double vision Respiratory: cough; No dyspnea on exertion Gastrointestinal: No abdominal pain, No diarrhea; nausea, vomiting Genitourinary: No decreased output, No discharge Musculoskeletal: No back pain, No joint pain Skin: No change in color, No change in hair/nails (IVAN PRIETO) All Other Systems Reviewed Negative Unless Noted: Yes (IVAN PRIETO) Past Pirkyyf-Dfifmb-Dybrgc Hx Patient Social History Tobacco Use?: Yes Tobacco type used: Cigarettes Smoking Status: Current Everyday Smoker Substance use?: Yes Substance type: Marijuana Alcohol Use?: No Pt feels they are or have been: No (IVAN PRIETO) Immunizations Up To Date Tetanus Booster (TDap): Less than 5yrs First/Initial COVID19 Vaccinat: UNKNOWN DATE Second COVID19 Vaccination Parveen: UNKNOWN DATE Third COVID19 Vaccination Date: UNKNOWN DATE (IVAN PRIETO) Seasonal Allergies Seasonal Allergies: No (IVAN PRIETO) Past Medical History Surgery/Hospitalization HX: PMH: TYPE 1 DM. Surgeries: Yes (BMT'S) Ear Surgery Respiratory: Yes Asthma Currently Using CPAP: No Currently Using BIPAP: No Cardiac: No Neurological: No Reproductive Disorders: No Sexually Transmitted Disease: No HIV/AIDS: No Genitourinary: No Gastrointestinal: No Musculoskeletal: No Endocrine: Yes Diabetes, Insulin dep HEENT: Yes Chronic Ear Infection Loss of Vision: Denies Hearing Impairment: Denies Cancer: No Psychosocial: Yes Depression Integumentary: No Blood Disorders: No (IVAN PRIETO) Family Medical History Cardiovascular disease 19 MOTHER Kidney disease 19 MOTHER Heart Disease, Renal Disease (IVAN PRIETO) Physical Exam Vital Signs Vital Signs - First Documented 03/31/22 11:41 Temp 35.8 Pulse 90 Resp 18 B/P (MAP) 126/82 (97) Pulse Ox 99 (TERESO CAVAZOS MD) Vital Signs Capillary Refill : (IVAN PRIETO) Height, Weight, BMI Height: 5'11.00" Weight: 130lbs. oz. 58.219002lc; 16.00 BMI Method:Actual General Appearance: No Apparent Distress, WD/WN Eyes: Bilateral Eye Normal Inspection, Bilateral Eye PERRL, Bilateral Eye EOMI HEENT: PERRL/EOMI, TMs Normal, Normal ENT Inspection, Pharynx Normal Neck: Full Range of Motion, Normal Inspection, Non Tender, Supple Respiratory: Chest Non Tender, Lungs Clear, Normal Breath Sounds, No Accessory Muscle Use, No Respiratory Distress Cardiovascular: Regular Rate, Rhythm, No Edema, No Gallop, No JVD Gastrointestinal: Normal Bowel Sounds, No Organomegaly, No Pulsatile Mass, Non Tender Back: Normal Inspection, No CVA Tenderness Neurologic/Psychiatric: Alert, Oriented x3, No Motor/Sensory Deficits, Normal Mood/Affect, digital account executive II-XII Norm as Tested Skin: Normal Color, Warm/Dry (IVAN PRIETO) Progress/Results/Core Measures Suspected Sepsis SIRS Temperature: Pulse: Respiratory Rate: Laboratory Tests 03/31/22 11:32: White Blood Count 12.9H Blood Pressure / Mean: Laboratory Tests 03/31/22 11:32: Platelet Count 214 03/31/22 12:10: Creatinine 1.53H, Total Bilirubin 1.0 (IVAN PRIETO) Results/Orders Lab Results Laboratory Tests Test 03/31/22 11:32 03/31/22 12:10 03/31/22 12:45 Range/Units White Blood Count 12.9 H 4.3-11.0 10^3/uL Red Blood Count 6.42 H 4.30-5.52 10^6/uL Hemoglobin 20.4 H 13.3-17.7 g/dL Hematocrit 61 H 40-54 % Mean Corpuscular Volume 96 80-99 fL Mean Corpuscular Hemoglobin 32 25-34 pg Mean Corpuscular Hemoglobin Concent 33 32-36 g/dL Red Cell Distribution Width 11.7 10.0-14.5 % Platelet Count 214 130-400 10^3/uL Mean Platelet Volume 10.6 9.0-12.2 fL Immature Granulocyte % (Auto) 1 % Neutrophils (%) (Auto) 60 42-75 % Lymphocytes (%) (Auto) 29 12-44 % Monocytes (%) (Auto) 7 0-12 % Eosinophils (%) (Auto) 2 0-10 % Basophils (%) (Auto) 1 0-10 % Neutrophils # (Auto) 7.7 1.8-7.8 10^3/uL Lymphocytes # (Auto) 3.8 1.0-4.0 10^3/uL Monocytes # (Auto) 0.9 0.0-1.0 10^3/uL Eosinophils # (Auto) 0.2 0.0-0.3 10^3/uL Basophils # (Auto) 0.2 H 0.0-0.1 10^3/uL Immature Granulocyte # (Auto) 0.1 0.0-0.1 10^3/uL Glucometer 442 *H 70-110 MG/DL Sodium Level 135 135-145 MMOL/L Potassium Level 4.8 3.6-5.0 MMOL/L Chloride Level 101 98-107 MMOL/L Carbon Dioxide Level 11 L 21-32 MMOL/L Anion Gap 23 H 5-14 MMOL/L Blood Urea Nitrogen 16 7-18 MG/DL Creatinine 1.53 H 0.60-1.30 MG/DL Estimat Glomerular Filtration Rate 67 BUN/Creatinine Ratio 10 Glucose Level 396 H 70-105 MG/DL Calcium Level 9.7 8.5-10.1 MG/DL Corrected Calcium 9.3 8.5-10.1 MG/DL Total Bilirubin 1.0 0.1-1.0 MG/DL Aspartate Amino Transf (AST/SGOT) 17 5-34 U/L Alanine Aminotransferase (ALT/SGPT) 26 0-55 U/L Alkaline Phosphatase 112 40-136 U/L Total Protein 8.5 H 6.4-8.2 GM/DL Albumin 4.5 3.2-4.5 GM/DL Lipase 19 8-78 U/L Beta-Hydroxybutyrate (Chem panel) 8.88 H 0.00-0.27 MMOL/L Blood Gas Puncture Site L WRIST Blood Gas Patient Temperature 35.8 Arterial Blood pH 7.25 *L 7.37-7.43 Arterial Blood Partial Pressure CO2 13 *L 35-45 MMHG Arterial Blood Partial Pressure O2 108 H 79-93 MMHG Arterial Blood HCO3 6 *L 23-27 MMOL/L Arterial Blood Total CO2 6.2 *L 21.0-31.0 MMOL/L Arterial Blood Oxygen Saturation 98 94-100 % Arterial Blood Base Excess -20.8 L -2.5-2.5 MMOL/L Lloyd Test YES-POS Blood Gas Ventilator Setting NO Blood Gas Inspired Oxygen RA (TERESO CAVAZOS MD) My Orders Orders - TERESO CAVAZOS MD Ns Iv 1000 Ml (Sodium Chloride 0.9%) (03/31/22 11:38) (TERESO CAVAZOS MD) Medications Given in ED Current Medications Medications Dose Ordered Sig/Stephanie Route Start Time Stop Time Status Last Admin Dose Admin Ondansetron HCl 4 mg ONCE ONCE IVP 03/31/22 11:45 03/31/22 11:46 DC 03/31/22 11:55 4 MG (TERESO CAVAZOS MD) Vital Signs/I&O 03/31/22 11:41 Temp 35.8 Pulse 90 Resp 18 B/P (MAP) 126/82 (97) Pulse Ox 99 (TERESO CAVAZOS MD) Vital Signs/I&O Capillary Refill : (IVAN PRIETO) Departure Communication (Admissions) Time/Spoke to Admitting Phy: 13:48 Patient was accepted by Dr. ENNIS for DKA. Orders for DKA was placed. (IVAN PRIETO) Communication (PCP) Patient with a history of DKA who presents the ED with generalized weakness fatigue vomiting. Patient blood sugar over 400. Acute kidney injury with creatinine of 1.53. Anion gap of 23 with pH of 7.25 , PCO2 of 13, HCo3 of 6. Beta hydroxybutyrate of 8.88. Patient appears in DKA. Was given dose of insulin here. Started on insulin drip on ICU. Patient was discussed with Dr. ENNIS who accepts patient. Patient will be admitted for further evaluation. Negative COVID influenza. Has no abdominal tenderness. Chest x-ray was negative for pneumonia. Urine no evidence infection but did note ketones. Patient agrees with admission at this time (IVAN PRIETO) Impression Primary Impression: DKA (diabetic ketoacidosis) Disposition: ADMITTED INPATIENT Condition: Stable Admissions Decision to Admit Reason: Admit from ER (General) Decision to Admit/Date: Mar 31, 2022 Time/Decision to Admit Time: 13:48 (IVAN PRIETO) Departure-Patient Inst. Referrals: GERARDO ENNIS DO (PCP/Family) Primary Care Physician ATTENDING PHYSICIAN NOTE: I was physically present as attending physician in the emergency department during the care of this patient, but I was not directly involved in the decision making or delivery of care for this patient. (TERESO CAVAZOS MD) IVAN PRIETO Mar 31, 2022 11:47 TERESO CAVAZOS MD Mar 31, 2022 19:15
[2022-03-31 11:55] LABS: BASOPHILS # (AUTO) 0.2 10^3/uL (0.0-0.1); BASOPHILS % (AUTO) 1 % (0-10); EOSINOPHILS # (AUTO) 0.2 10^3/uL (0.0-0.3); EOSINOPHILS % (AUTO) 2 % (0-10); HEMATOCRIT 61 % (40-54); HEMOGLOBIN 20.4 g/dL (13.3-17.7); LYMPHOCYTES # (AUTO) 3.8 10^3/uL (1.0-4.0); LYMPHOCYTES % (AUTO) 29 % (12-44); MEAN CORPUSCULAR HEMOGLOBIN 32 pg (25-34); MEAN CORPUSCULAR HGB CONC 33 g/dL (32-36); MEAN CORPUSCULAR VOLUME 96 fL (80-99); MEAN PLATELET VOLUME 10.6 fL (9.0-12.2); MONOCYTES # (AUTO) 0.9 10^3/uL (0.0-1.0); MONOCYTES % (AUTO) 7 % (0-12); NEUTROPHILS # (AUTO) 7.7 10^3/uL (1.8-7.8); NEUTROPHILS % (AUTO) 60 % (42-75); PLATELET COUNT 214 10^3/uL (130-400); WHITE BLOOD COUNT 12.9 10^3/uL (4.3-11.0)
--- NOTE | 2022-03-31 12:13 | Diagnostic Imaging Report ---
EXAMINATION: Chest, 1 view. HISTORY: Cough. Lethargy. History of type I diabetes. COMPARISON: 01/13/2022. FINDINGS: The lung volumes are normal. No focal consolidation is seen. No large pleural effusion or pneumothorax is seen. The cardiomediastinal silhouette is normal in size and contour. No acute osseous abnormality is seen. IMPRESSION: No acute pleuroparenchymal process. Dictated by: Dictated on workstation # [id number]
[2022-03-31 12:28] LABS: ALBUMIN 4.5 GM/DL (3.2-4.5); POTASSIUM 4.8 MMOL/L (3.6-5.0)
[2022-03-31 12:29] LABS: CALCIUM 9.7 MG/DL (8.5-10.1)
[2022-03-31 12:31] LABS: TOTAL PROTEIN 8.5 GM/DL (6.4-8.2)
[2022-03-31 12:34] LABS: CREATININE SERUM 1.53 MG/DL (0.60-1.30)
[2022-03-31 12:52] LABS: ABG BASE EXCESS -20.8 MMOL/L (-2.5-2.5); ABG OXYGEN SATURATION 98 % (94-100); ABG PO2 108 MMHG (79-93)
[2022-03-31 12:57] LABS: ALLENS TEST YES-POS
[2022-03-31] MEDS ORDERED: LACTATED RINGERS 1,000 ML IV STA (12:57)
[2022-03-31 12:58] LABS: INSPIRED O2 RA; PATIENT TEMP 35.8; VENTILATOR NO
[2022-03-31 12:59] LABS: ABG PCO2 13 MMHG (35-45); ABG PH 7.25 (7.37-7.43); ABG TCO2 6.2 MMOL/L (21.0-31.0)
[2022-03-31] MEDS ORDERED: PROMETHAZINE INJ 25 MG/ML (PHENERGAN) AMP IVP ONE (13:15)
[2022-03-31] MEDS ORDERED: inSUlin (REGULAR) HUMAN 1 UNIT/0.01 ML (CHARGE PER UNIT) SC ONE (13:15)
[2022-03-31] MEDS ORDERED: inSUlin (REGULAR) HUMAN 1 UNIT/0.01 ML (CHARGE PER UNIT) ONE (13:29)
[2022-03-31 13:39] LABS: BILIRUBIN,URINE NEGATIVE (NEGATIVE); CLARITY,URINE CLEAR; COLOR,URINE YELLOW; GLUCOSE, URINE (UA) 2+ (NEGATIVE); KETONES,URINE 3+ (NEGATIVE); LEUKOCYTE ESTERASE ,URINE NEGATIVE (NEGATIVE); NITRITE,URINE NEGATIVE (NEGATIVE); PH,URINE 5.5 (5-9); PROTEIN,URINE TRACE (NEGATIVE)
[2022-03-31 13:50] LABS: BACTERIA,URINE NEGATIVE /HPF
[2022-03-31] MEDS ORDERED: CATHETER FLUSH 10 ML SYR IV PRN (14:30)
[2022-03-31] MEDS ORDERED: NS IV 1000 ML 1,000 ML IV SCH (14:30)
[2022-03-31] MEDS ORDERED: PROMETHAZINE INJ 25 MG/ML (PHENERGAN) AMP IVP PRN (15:00)
[2022-03-31] MEDS ORDERED: ONDANSETRON 4 MG/2 ML (SDV) Z0FRAN IVP PRN (15:00)
[2022-03-31 15:07] LABS: HEMOGLOBIN 18.4 g/dL (13.3-17.7); MEAN PLATELET VOLUME 10.5 fL (9.0-12.2); WHITE BLOOD COUNT 9.6 10^3/uL (4.3-11.0)
[2022-03-31] MEDS ORDERED: ENOXAPARIN 40 MG/0.4 ML (LOVENOX) SYR SC SCH (15:15)
[2022-03-31 15:30] LABS: POTASSIUM 4.9 MMOL/L (3.6-5.0)
[2022-03-31 15:31] LABS: CALCIUM 9.1 MG/DL (8.5-10.1)
[2022-03-31 15:36] LABS: CREATININE SERUM 1.37 MG/DL (0.60-1.30)
[2022-03-31] MEDS: 1/2 NS IV SOLUTION 1,000 ML IV SCH ×3 (15:43→23:06)
[2022-03-31] MEDS: POTASSIUM CL 10MEQ/50ML IVPB 50 ML IV SCH ×5 (15:47→21:45)
--- NOTE | 2022-03-31 15:48 | Tele-ICU Progress Note ---
Subjective Date Seen by a Provider: Mar 31, 2022 Time Seen by a Provider: 15:43 Subjective/Events-last exam He is a 21-year-old male with past medical history of type 1 diabetes mellitus with a recent diabetic ketoacidosis in January 2022 admitted to the emergency room with a complaint of 4 flulike symptoms associated with body aches fatigue vomiting and dry heaves for the last 2 days prior to this admission. He has not been using his insulin for the past few days due to decreased appetite and not eating. He does have very frequent urination. In the emergency room he is found to have a blood sugar of 449 and a subsequent evaluation with various test revealed that he has a diabetic ketoacidosis. Hence he is admitted to the intensive care unit for close monitoring and management. I have reviewed his c urrent data, previous records to some extent and I have discussed with the patient who is not really willing to give much history. I have reviewed the case with ENGINE LATHE TENDER and I have made a video visit. Review of Systems ros per rn Sepsis Event Evaluation Height, Weight, BMI Height: 5'11.00" Weight: 130lbs. oz. 58.130653we; 18.17 BMI Method:Actual Exam Exam Patient acknowledged, consented, and participated in this virtual visit which was conducted using real time audio/video Vital Signs Date Time Temp Pulse Resp B/P (MAP) Pulse Ox O2 Delivery O2 Flow Rate FiO2 03/31/22 14:32 77 03/31/22 14:30 96 Room Air 03/31/22 14:15 85 20 107/59 88 03/31/22 11:41 35.8 90 18 126/82 (97) 99 Height & Weight Height: 5'11.00" Weight: 130lbs. oz. 58.463804ey; 18.17 BMI Method:Actual General Appearance: No Apparent Distress, WD/WN HEENT: PERRL/EOMI, TMs Normal, Normal ENT Inspection, Pharynx Normal Neck: Full Range of Motion, Normal Inspection, Non Tender, Supple Respiratory: Chest Non Tender, Lungs Clear, Normal Breath Sounds, No Accessory Muscle Use, No Respiratory Distress Cardiovascular: Regular Rate, Rhythm, No Edema, No Gallop, No JVD Capillary Refill: Less Than 3 Seconds Neurologic/Psychiatric: Alert, Oriented x3, No Motor/Sensory Deficits, Normal Mood/Affect, optical instrument specialist II-XII Norm as Tested Skin: Normal Color, Warm/Dry Other comments PE PER RN Results Lab Laboratory Tests 03/31/22 11:32 03/31/22 12:10 03/31/22 14:55 Assessment/Plan Assessment/Plan 1. Diabetic ketoacidosis 2. Acute kidney injury 3. Severe dehydration. 4. Markedly elevated hemoglobin is most likely due to volume contraction. Recommendations we will continue IV hydration with D5 half-normal saline. 2. Insulin per protocol IV 3. Monitor electrolytes, magnesium and phosphate frequently and supplement electrolyte as needed 4. DVT prophylaxis and ulcer prophylaxis. 5. We will check urine for drug screen. Critical Care: Critically Ill Patient Time spent with patient (mins): 30 PATSY GARG MD Mar 31, 2022 15:48
[2022-03-31] MEDS ORDERED: ENOXAPARIN INJECTION 30 MG/0.3 ML SYR SC SCH (16:00)
[2022-03-31] MEDS ORDERED: SODIUM BICARB 8.4% 50 MEQ/50 ML (ABBOTT) SYR IV NR (16:15)
[2022-03-31 16:30] LABS: AMPHETAMINE SCREEN, URINE NEGATIVE (NEGATIVE); BARBITURATE SCREEN URINE NEGATIVE (NEGATIVE); BENZODIAZEPINES SCREEN URINE NEGATIVE (NEGATIVE); CANNABINOID SCREEN, URINE POSITIVE (NEGATIVE); COCAINE SCREEN URINE NEGATIVE (NEGATIVE); METHADONE STAT NEGATIVE (NEGATIVE); OPIATE SCREEN URINE NEGATIVE (NEGATIVE); OXYCODONE STAT NEGATIVE (NEGATIVE); PROPOXYPHENE STAT NEGATIVE (NEGATIVE); TRICYCLIC ANTIDEPRESSANTS SCRE NEGATIVE (NEGATIVE)
[2022-03-31] MEDS: D5 1/2 NS 1000 ML IV SOLUTION 1,000 ML IV SCH ×2 (16:37→21:45)
[2022-03-31 17:33] LABS: POTASSIUM 4.7 MMOL/L (3.6-5.0)
[2022-03-31 17:34] LABS: CALCIUM 7.9 MG/DL (8.5-10.1)
[2022-03-31 17:38] LABS: CREATININE SERUM 1.09 MG/DL (0.60-1.30); PHOSPHORUS 2.2 MG/DL (2.3-4.7)
[2022-03-31 17:41] LABS: MAGNESIUM 1.5 MG/DL (1.6-2.4)
--- NOTE | 2022-03-31 17:58 | History & Physical ---
History of Present Illness History of Present Illness Reason for visit/HPI This is a 21 year old male with a known history of insulin requiring diabetes and noncompliance as well as numerous admissions for DKA. He states that he has not been feeling well or eating well the past 2 days so he did not take any insulin. He has not been checking his blood sugars either. He states he has not been sleeping well even with his trazadone so he has been pushing caffeine i nstead of eating. He started vomiting yesterday and this worsened today so he presented to the emergency room where his blood sugar was 442 and he was found to be in acute DKA. He will be admitted to the ICU on an insulin drip with aggressive IVF hydration and electrolyte replacement. Date of Admission Mar 31, 2022 at 13:11 Date Seen by a Provider: Mar 31, 2022 Time Seen by a Provider: 17:53 I consulted on this patient on 03/31/22 17:53 Attending Physician Gerardo Luther DO Admitting Physician Admitting Physician: Gerardo Luther DO Attending Physician: Gerardo Luther DO Consult Allergies and Home Medications Allergies Coded Allergies: Arabella Known Allergies (Unverified Allergy, Mild, 02/08/09) Patient Home Medication List Home Medication List Reviewed: Yes Bupropion HCl (Wellbutrin Xl) 150 Mg Tab.er.24h, 150 MG PO DAILY Prescribed by: GERARDO LUTHER on 01/16/22 1001 Cholecalciferol (Vitamin D3) (Vitamin D3) 25 Mcg Tablet, 25 MCG PO DAILY, (Reported) Entered as Reported by: ESTHER JOHNSON on 01/01/22 1045 Insulin Degludec (Tresiba Flextouch U-100) 100 Unit/1 Ml Insuln.pen, 40 UNIT SQ HS, (Reported) Entered as Reported by: ESTHER JOHNSON on 01/01/22 1045 Insulin Lispro (Insulin Lispro Kwikpen U-100) 100 Unit/1 Ml Insuln.pen, UNIT SQ AC, (Reported) Entered as Reported by: ESTHER JOHNSON on 01/01/22 1045 Lisinopril (Lisinopril) 10 Mg Tablet, 5 MG PO 1800, (Reported) Entered as Reported by: ESTHER JOHNSON on 01/14/22 1141 Multivitamin (Multivitamin) 1 Each Tablet, 1 EACH PO DAILY, (Reported) Entered as Reported by: ESTHER JOHNSON on 01/01/22 1045 Trazodone HCl (Trazodone HCl) 100 Mg Tablet, 100 MG PO HS PRN for SLEEP, (Reported) Entered as Reported by: ESTHER JOHNSON on 01/01/22 1045 Past Vgzfeay-Etujct-Bujaqz Hx Patient Social History Employed/Student: employed Tobacco Use?: Yes Tobacco type used: Cigarettes Smoking Status: Current Everyday Smoker Use of E-Cig and/or Vaping dev: No Substance use?: Yes Substance type: Marijuana Substance frequency: Daily Alcohol Use?: No Pt feels they are or have been: No Immunizations Up To Date Date of Influenza Vaccine: Aug 05, 2020 First/Initial COVID19 Vaccinat: UNKNOWN DATE Second COVID19 Vaccination Parveen: UNKNOWN DATE Seasonal Allergies Seasonal Allergies: No Current Status Advance Directives: No Communicates: Verbally Primary Language: Thai Preferred Spoken Language: Thai Is interpretation needed?: No Past Medical History Surgeries: Ear Surgery Asthma Currently Using CPAP: No Currently Using BIPAP: No Sexually Transmitted Disease: No HIV/AIDS: No Diabetes, Insulin dep Chronic Ear Infection Loss of Vision: Denies Hearing Impairment: Denies Depression Blood Disorders: No Family Medical History Cardiovascular disease 19 MOTHER Kidney disease 19 MOTHER Heart Disease, Renal Disease Review of Systems Constitutional: weakness EENTM: No see HPI, No no symptoms reported, No ear discharge, No hearing loss, No ear pain, No blurred vision, No double vision, No eye pain, No tearing, No vision loss, No dental problems, No hoarseness, No mouth pain, No mouth swelling, No epistaxis, No nose congestion, No nose pain, No throat pain, No throat swelling, No other Respiratory: cough Cardiovascular: No no symptoms reported, No see HPI, No chest pain, No edema, No Hx of Intervention, No palpitations, No syncope, No vascular heart diseas, No other Gastrointestinal: loss of appetite, nausea, vomiting Genitourinary: frequency Musculoskeletal: muscle pain, muscle weakness Skin: No no symptoms reported, No see HPI, No change in color, No change in hair/nails, No dryness, No hx of skin cancer, No lesions, No lumps, No pruritus, No rash, No other Psychiatric/Neurological: Depressed, Other (insomnia) Physical Exam Vital Signs Vital Signs - First Documented 03/31/22 03/31/22 11:41 14:30 Temp 35.8 Pulse 90 Resp 18 B/P (MAP) 126/82 (97) Pulse Ox 99 O2 Delivery Room Air Capillary Refill : Less Than 3 Seconds Height, Weight, BMI Height: 5'11.00" Weight: 130lbs. oz. [id number]; 18.17 BMI Method:Actual General Appearance: Mild Distress HEENT: Normal ENT Inspection Neck: Supple Respiratory: Lungs Clear Cardiovascular: Tachycardia Gastrointestinal: Normal Bowel Sounds, Non Tender, Soft Back: No CVA Tenderness Extremity: Non Tender, No Calf Tenderness, No Pedal Edema Neurologic/Psychiatric: Alert, Oriented x3 Skin: Warm/Dry Comments Laboratory Tests 03/31/22 11:32: White Blood Count 12.9H, Red Blood Count 6.42H, Hemoglobin 20.4H, Hematocrit 61H , Mean Corpuscular Volume 96, Mean Corpuscular Hemoglobin 32, Mean Corpuscular Hemoglobin Concent 33, Red Cell Distribution Width 11.7, Platelet Count 214, Mean Platelet Volume 10.6, Immature Granulocyte % (Auto) 1, Neutrophils (%) (Auto) 60, Lymphocytes (%) (Auto) 29, Monocytes (%) (Auto) 7, Eosinophils (%) (Auto) 2, Basophils (%) (Auto) 1, Neutrophils # (Auto) 7.7, Lymphocytes # (Auto) 3.8, Monocytes # (Auto) 0.9, Eosinophils # (Auto) 0.2, Basophils # (Auto) 0.2H, Immature Granulocyte # (Auto) 0.1, Glucometer 442*H, Mean Blood Glucose [Pending], Hemoglobin A1c [Pending] 03/31/22 12:10: Sodium Level 135, Potassium Level 4.8, Chloride Level 101, Carbon Dioxide Level 11L, Anion Gap 23H, Blood Urea Nitrogen 16, Creatinine 1.53H, Estimat Glomerular Filtration Rate 67, BUN/Creatinine Ratio 10, Glucose Level 396H, Calcium Level 9.7, Corrected Calcium 9.3, Total Bilirubin 1.0, Aspartate Amino Transf (AST/SGOT) 17, Alanine Aminotransferase (ALT/SGPT) 26, Alkaline Phosphatase 112, Total Protein 8.5H, Albumin 4.5, Lipase 19, Beta-Hydroxybutyrate (Chem panel) 8.88H 6/28/22 12:45: Blood Gas Puncture Site L WRIST, Blood Gas Patient Temperature 35.8, Arterial Blood pH 7.25*L, Arterial Blood Partial Pressure CO2 13*L, Arterial Blood Partial Pressure O2 108H, Arterial Blood HCO3 6*L, Arterial Blood Total CO2 6.2*L, Arterial Blood Oxygen Saturation 98, Arterial Blood Base Excess -20.8L, Lloyd Test YES-POS, Blood Gas Ventilator Setting NO, Blood Gas Inspired Oxygen RA 03/31/22 13:34: Urine Color YELLOW, Urine Clarity CLEAR, Urine pH 5.5, Urine Specific [place] >=1.030, Urine Protein TRACEH, Urine Glucose (UA) 2+H, Urine Ketones 3+H, Urine Nitrite NEGATIVE, Urine Bilirubin NEGATIVE, Urine Urobilinogen 0.2, Urine Leukocyte Esterase NEGATIVE, Urine RBC (Auto) TRACE-IH, Urine RBC NONE, Urine WBC NONE, Urine Crystals NONE, Urine Bacteria NEGATIVE, Urine Casts NONE, Urine Mucus NEGATIVE, Urine Culture Indicated NO, Urine Opiates Screen NEGATIVE, Urine Oxycodone Screen NEGATIVE, Urine Methadone Screen NEGATIVE, Urine Propoxyphene Screen NEGATIVE, Urine Barbiturates Screen NEGATIVE, Ur Tricyclic Antidepressants Screen NEGATIVE, Urine Phencyclidine Screen NEGATIVE, Urine Amphetamines Screen NEGATIVE, Urine Methamphetamines Screen NEGATIVE, Urine Benzodiazepines Screen NEGATIVE, Urine Cocaine Screen NEGATIVE, Urine Cannabinoids Screen POSITIVEH 03/31/22 13:46: Influenza Type A (RT-PCR) Not Detected, Influenza Type B (RT-PCR) Not Detected, SARS-CoV-2 RNA (RT-PCR) Not Detected 03/31/22 14:30: Glucometer 314H 03/31/22 14:55: White Blood Count 9.6, Red Blood Count 5.79H, Hemoglobin 18.4H, Hematocrit 57H, Mean Corpuscular Volume 98, Mean Corpuscular Hemoglobin 32, Mean Corpuscular Hemoglobin Concent 32, Red Cell Distribution Width 11.7, Platelet Count 174, Mean Platelet Volume 10.5, Percent Immature Platelet Fraction 2.6, Sodium Level 134L, Potassium Level 4.9, Chloride Level 104, Carbon Dioxide Level 9*L, Anion Gap 21H, Blood Urea Nitrogen 14, Creatinine 1.37H, Estimat Glomerular Filtration Rate 76, BUN/Creatinine Ratio 10, Glucose Level 333H, Calcium Level 9.1, Beta- Hydroxybutyrate (Chem panel) 8.61H 03/31/22 15:35: Glucometer 250H 03/31/22 16:32: Glucometer 181H 03/31/22 17:15: Sodium Level 137, Potassium Level 4.7, Chloride Level 107, Carbon Dioxide Level 15L, Anion Gap 15H, Blood Urea Nitrogen 13, Creatinine 1.09, Estimat Glomerular Filtration Rate 100, BUN/Creatinine Ratio 12, Glucose Level 189H, Calcium Level 7.9L, Phosphorus Level 2.2L, Magnesium Level 1.5L 03/31/22 17:33: Glucometer 202H Assessment/Plan Assessment and Plan 1. Acute DKA--admit on DKA protocol with insulin drip and aggressive hydration, replace electrolytes prn pending lab results 2. Uncontrolled DM--insulin requiring with noncompliance--update HbA1C, has not followed up with endocrinology or with myself on diabetes 3. Severe Dehydration with Leukocytosis and Polycythemia--hydrate and monitor WBC and H/H 4. Insomnia--will try higher dose of trazadone and see if helps Admission Diagnosis Admission Status: Observation Clinical Quality Measures Smoking Cessation Counseling: Counseling-Asymptomatic: 3-10 minutes GERARDO LUTHER DO Mar 31, 2022 17:58
[2022-03-31] MEDS ORDERED: ACETAMINOPHEN 325 MG TABLET PO PRN (18:00)
[2022-03-31 19:46] LABS: CLARITY,URINE CLEAR; COLOR,URINE YELLOW; GLUCOSE, URINE (UA) 2+ (NEGATIVE); KETONES,URINE 3+ (NEGATIVE); LEUKOCYTE ESTERASE ,URINE NEGATIVE (NEGATIVE); NITRITE,URINE NEGATIVE (NEGATIVE); PH,URINE 5.5 (5-9); PROTEIN,URINE NEGATIVE (NEGATIVE)
[2022-03-31 19:55] LABS: BACTERIA,URINE NEGATIVE /HPF; BILIRUBIN,URINE 1+ (NEGATIVE); WBC,URINE RARE /HPF
[2022-03-31] MEDS ORDERED: traZODone 100 MG (DESYREL) TAB PO SCH (21:00)
[2022-03-31] MEDS: CATHETER FLUSH 10 ML SYR IV SCH (22:00)
[2022-03-31 23:26] LABS: POTASSIUM 3.8 MMOL/L (3.6-5.0)
[2022-03-31 23:32] LABS: CREATININE SERUM 0.97 MG/DL (0.60-1.30)
[2022-04-01] MEDS: POTASSIUM CL 10MEQ/50ML IVPB 50 ML IV SCH ×5 (00:31→08:23)
[2022-04-01] MEDS: 1/2 NS IV SOLUTION 1,000 ML IV SCH ×4 (00:31→10:41)
[2022-04-01] MEDS: D5 1/2 NS 1000 ML IV SOLUTION 1,000 ML IV SCH ×2 (01:26→05:35)
[2022-04-01 04:26] LABS: BASOPHILS # (AUTO) 0.1 10^3/uL (0.0-0.1); BASOPHILS % (AUTO) 1 % (0-10); EOSINOPHILS # (AUTO) 0.1 10^3/uL (0.0-0.3); EOSINOPHILS % (AUTO) 2 % (0-10); HEMATOCRIT 40 % (40-54); HEMOGLOBIN 13.7 g/dL (13.3-17.7); LYMPHOCYTES # (AUTO) 3.5 10^3/uL (1.0-4.0); LYMPHOCYTES % (AUTO) 40 % (12-44); MEAN CORPUSCULAR HEMOGLOBIN 31 pg (25-34); MEAN CORPUSCULAR HGB CONC 34 g/dL (32-36); MEAN CORPUSCULAR VOLUME 92 fL (80-99); MEAN PLATELET VOLUME 10.3 fL (9.0-12.2); MONOCYTES # (AUTO) 0.8 10^3/uL (0.0-1.0); MONOCYTES % (AUTO) 9 % (0-12); NEUTROPHILS # (AUTO) 4.3 10^3/uL (1.8-7.8); NEUTROPHILS % (AUTO) 49 % (42-75); PLATELET COUNT 144 10^3/uL (130-400); WHITE BLOOD COUNT 8.8 10^3/uL (4.3-11.0)
[2022-04-01 04:44] LABS: CALCIUM 7.9 MG/DL (8.5-10.1); CREATININE SERUM 0.93 MG/DL (0.60-1.30); MAGNESIUM 1.4 MG/DL (1.6-2.4); POTASSIUM 3.7 MMOL/L (3.6-5.0); TOTAL PROTEIN 5.2 GM/DL (6.4-8.2)
[2022-04-01] MEDS ORDERED: MAGNESIUM 1 GM/100 ML IVPB 100 ML IV ONE (05:44)
[2022-04-01] MEDS: MAGNESIUM 1 GM/100 ML IVPB 100 ML IV SCH ×5 (05:48→13:04)
[2022-04-01] MEDS: CATHETER FLUSH 10 ML SYR IV SCH (05:49)
[2022-04-01] MEDS ORDERED: POTASSIUM CL 10MEQ/50ML IVPB 50 ML IV SCH (06:00)
[2022-04-01] MEDS ORDERED: KCL 20 MEQ TAB (K-DUR) PO SCH (06:00)
[2022-04-01] MEDS ORDERED: MAGNESIUM 1 GM/100 ML IVPB 100 ML IV SCH (06:00)
[2022-04-01] MEDS ORDERED: POTASSIUM PHOSPHATE INJ 30 MM in NS (IVPB) 250 ML IV ONE (08:30)
[2022-04-01] MEDS ORDERED: TRAZ-227 PO (08:42)
[2022-04-01 08:44] LABS: POTASSIUM 3.4 MMOL/L (3.6-5.0)
[2022-04-01 08:45] LABS: CALCIUM 7.9 MG/DL (8.5-10.1)
[2022-04-01 08:49] LABS: CREATININE SERUM 0.78 MG/DL (0.60-1.30)
[2022-04-01] MEDS ORDERED: PANTOPRAZOLE 40 MG (PROTONIX) VIAL IV SCH (09:00)
[2022-04-01] MEDS ORDERED: CRAN400C PO (09:46)
[2022-04-01] MEDS ORDERED: D5 1/2 NS 1000 ML IV SOLUTION 1,000 ML IV ONE (09:54)
[2022-04-01] MEDS ORDERED: inSUlin ASPART (NovoLOG) 1 UNIT/0.01 ML (CHARGE PER UNIT) SQ SCH (11:00)
[2022-04-01 15:21] VITALS: BP 106/63
--- NOTE | 2022-04-01 17:50 | Discharge Summary ---
Diagnosis/Chief Complaint Date of Admission Mar 31, 2022 at 13:11 Date of Discharge Apr 01, 2022 at 15:36 Discharge Date: Apr 01, 2022 Discharge Diagnosis 1. Acute DKA--improved 2. Uncontrolled DM--insulin requiring with noncompliance--HbA1C 13.1--has not kept endocrinology evaluations 3. Severe Dehydration with Leukocytosis and Polycythemia--improved 4. Insomnia--home on higher dose of trazadone 5. Hypokalemia/Hypomagnesemia--S/P replacement Reason Hospital Visit This is a 21 year old male with a known history of insulin requiring diabetes and noncompliance as well as numerous admissions for DKA. He states that he has not been feeling well or eating well the past 2 days so he did not take any insulin. He has not been checking his blood sugars either. He states he has not been sleeping well even with his trazadone so he has been pushing caffeine instead of eating. He started vomiting yesterday and this worsened today so he presented to the emergency room where his blood sugar was 442 and he was found to be in acute DKA. He will be admitted to the ICU on an insulin drip with aggressive IVF hydration and electrolyte replacement. Discharge Summary Hospital Course Was the Problem List Reviewed?: Yes Hospital Course This is a 21 year old male with a known history of insulin requiring diabetes and noncompliance as well as numerous admissions for DKA. He states that he has not been feeling well or eating well the past 2 days so he did not take any in sulin. He has not been checking his blood sugars either. He states he has not been sleeping well even with his trazadone so he has been pushing caffeine instead of eating. He started vomiting yesterday and this worsened today so he presented to the emergency room where his blood sugar was 442 and he was found to be in acute DKA. He will be admitted to the ICU on an insulin drip with aggressive IVF hydration and electrolyte replacement. He did require both potassium and magnesium replacement. He was able to eat and tolerate solid food the day of his admission with no nausea and vomiting. After hydration, his WBC count and hemoglobin were back to normal. His insulin drip was discontinued the following morning and he was only given 10u of insulin detemir due to a history of hypoglycemia when he was given 20units. His blood sugar was running 160 to 200 after the insulin drip was stopped but he was tolerating food and was anxious to go home because he needed to get back to work. He did discuss getting back in with [facility] for their diabetes program. He has been following with psych at [facility] as well. Labs Laboratory Tests 03/31/22 11:32: White Blood Count 12.9H, Red Blood Count 6.42H, Hemoglobin 20.4H, Hematocrit 61H , Basophils # (Auto) 0.2H, Glucometer 442*H, Mean Blood Glucose 329H, Hemoglobin A1c 13.1H 03/31/22 12:10: Carbon Dioxide Level 11L, Anion Gap 23H, Creatinine 1.53H, Glucose Level 396H, Total Protein 8.5H, Beta-Hydroxybutyrate (Chem panel) 8.88H 03/31/22 12:45: Arterial Blood pH 7.25*L, Arterial Blood Partial Pressure CO2 13*L, Arterial Blood Partial Pressure O2 108H, Arterial Blood HCO3 6*L, Arterial Blood Total CO2 6.2*L, Arterial Blood Base Excess -20.8L 03/31/22 13:34: Urine Protein TRACEH, Urine Glucose (UA) 2+H, Urine Ketones 3+H, Urine RBC (Auto) TRACE-IH, Urine Cannabinoids Screen POSITIVEH 03/31/22 13:46: 03/31/22 14:30: Glucometer 314H 03/31/22 14:55: Red Blood Count 5.79H, Hemoglobin 18.4H, Hematocrit 57H, Sodium Level 134L, Carbon Dioxide Level 9*L, Anion Gap 21H, Creatinine 1.37H, Glucose Level 333H, Beta-Hydroxybutyrate (Chem panel) 8.61H 03/31/22 15:35: Glucometer 250H 03/31/22 16:32: Glucometer 181H 03/31/22 17:15: Carbon Dioxide Level 15L, Anion Gap 15H, Glucose Level 189H, Calcium Level 7.9L, Phosphorus Level 2.2L, Magnesium Level 1.5L 03/31/22 17:33: Glucometer 202H 03/31/22 18:41: Glucometer 205H 03/31/22 19:31: Urine Glucose (UA) 2+H, Urine Ketones 3+H, Urine Bilirubin 1+H 03/31/22 19:34: Glucometer 261H 03/31/22 20:39: Glucometer 243H 03/31/22 21:34: Glucometer 191H 03/31/22 22:46: Glucometer 136H 03/31/22 22:53: Carbon Dioxide Level 19L, Glucose Level 124H, Calcium Level 8.0L 03/31/22 23:24: Glucometer 132H 04/01/22 00:22: Glucometer 164H 04/01/22 01:29: Glucometer 133H 04/01/22 02:24: Glucometer 168H 04/01/22 03:23: Glucometer 168H 04/01/22 04:18: Chloride Level 109H, Carbon Dioxide Level 15L, Glucose Level 134H, Calcium Level 7.9L, Phosphorus Level 2.0L, Magnesium Level 1.4L, Total Protein 5.2L, Albumin 3.0L, Beta-Hydroxybutyrate (Chem panel) 0.98H 04/01/22 04:35: Glucometer 141H 04/01/22 05:33: Glucometer 123H 04/01/22 06:29: Glucometer 162H 04/01/22 07:25: Glucometer 186H 04/01/22 08:13: Potassium Level 3.4L, Chloride Level 109H, Carbon Dioxide Level 20L, Glucose Level 159H, Calcium Level 7.9L 04/01/22 08:27: Glucometer 161H 04/01/22 09:42: Glucometer 229H 04/01/22 10:46: Glucometer 231H Procedures None. Discharge Physical Examination Allergies: Coded Allergies: NKANo Known Allergies (Unverified Allergy, Mild, 02/08/09) Vitals & I&Os Vital Signs Date Time Temp Pulse Resp B/P (MAP) Pulse Ox O2 Delivery O2 Flow Rate FiO2 04/01/22 15:21 36.0 73 8 106/63 98 Room Air General Appearance: Alert, Oriented X3, No Acute Distress Respiratory: Clear to Auscultation Cardiovascular: Regular Rate Abdominal: Normal Bowel Sounds, Soft, No Tenderness Psych/Mental Status: Mental Status NL, Mood NL Discharge Home Medications Reviewed and agree with Discharge Medication list on patient's Discharge Instruction sheet Instructions to Patient/Family Please see electronic discharge instructions given to patient. Clinical Quality Measures Smoking Cessation Counseling: Counseling-Asymptomatic: 3-10 minutes GERARDO ENNIS DO Apr 01, 2022 17:50
== END 2022-04-01 15:28 | disposition home or self-care (01) ==
LOC: EDUNIT# 11:14 → ER 11:17 → ICU 13:11 → UNDOADMOB 13:11 → ICU 14:30 → UNDODISOB 04-01 15:36
PROVIDERS: ADMIT Family Medicine; ATTEND Family Medicine
DX: E11.10 Type 2 diabetes mellitus with ketoacidosis without coma (principal); E86.0 Dehydration; D72.829 Elevated white blood cell count, unspecified; D75.1 Secondary polycythemia; G47.00 Insomnia, unspecified; Z79.4 Long term (current) use of insulin; F17.210 Nicotine dependence, cigarettes, uncomplicated
CPT/HCPCS: 36415; 71045; 80048; 80053; 80306; 81000; 82010; 82805; 82947; 83036; 83690; 83735; 84100; 85025; 85027; 87081; 87636; 96361; 96365; 96366; 96372; 96375; 96376; 99291; G0378

== ENCOUNTER 2022-05-05 17:32 | Emergency (ER) | payer MEDICAID ==
[~2022-05-05] VITALS: Ht 180.3 cm; Wt 61.2 kg
--- NOTE | 2022-05-05 17:55 | ED Lower Extremity ---
General Chief Complaint: Lower Extremity Stated Complaint: R ANKLE PAIN / INJ Source: patient Exam Limitations: no limitations History of Present Illness Date Seen by Provider: May 05, 2022 Time Seen by Provider: 17:45 Initial Comments Patient is a 22-year-old male who presents to the emergency department today with a chief complaint of right ankle pain. He was getting out of his dad's truck and stepped in a drainage ditch twisting his right ankle. He states he fell to the ground. He did not injure his knee or hit his head or have loss of consciousness. Patient states that he cannot bear weight secondary to the pain. No numbness or tingling to the foot. Patient is a type I diabetic. He states he prefers at this time to not check his blood sugar while in the department. He denies any complaints of shortness of breath, cough, nausea or vomiting. All other review of systems reviewed and negative except as stated. Onset: just prior to arrival Severity: moderate Pain/Injury Location: right ankle Method of Injury: fell, twisted Modifying Factors: Improves With Immobilization Allergies and Home Medications Allergies Coded Allergies: NKANo Known Allergies (Unverified Allergy, Mild, 02/08/09) Patient Home Medication List Home Medication List Reviewed: Yes Cholecalciferol (Vitamin D3) (Vitamin D3) 25 Mcg Tablet, 25 MCG PO DAILY, (Reported) Entered as Reported by: ESTHER JOHNSON on 01/01/22 1045 Insulin Degludec (Tresiba Flextouch U-100) 100 Unit/1 Ml Insuln.pen, 40 UNIT SQ HS, (Reported) Entered as Reported by: ESTHER JOHNSON on 01/01/22 1045 Insulin Lispro (Insulin Lispro Kwikpen U-100) 100 Unit/1 Ml Insuln.pen, UNIT SQ AC, (Reported) Entered as Reported by: ESTHER JOHNSON on 01/01/22 1045 Multivitamin (Multivitamin) 1 Each Tablet, 1 EACH PO DAILY, (Reported) Entered as Reported by: ESTHER JOHNSON on 01/01/22 1045 Trazodone HCl (Trazodone HCl) 100 Mg Tablet, 200 MG PO HS PRN for SLEEP Prescribed by: GERARDO ENNIS on 04/01/22 0842 Review of Systems Constitutional: see HPI EENTM: no symptoms reported Respiratory: no symptoms reported Cardiovascular: no symptoms reported Gastrointestinal: no symptoms reported Genitourinary: no symptoms reported Musculoskeletal: joint pain (right ankle) Skin: no symptoms reported All Other Systems Reviewed Negative Unless Noted: Yes Past Eumgqkd-Ncjnzu-Cojuez Hx Patient Social History Tobacco Use?: Yes Tobacco type used: Cigarettes Smoking Status: Current Everyday Smoker Substance use?: Yes Substance type: Marijuana Substance frequency: Daily Alcohol Use?: No Pt feels they are or have been: No Immunizations Up To Date Tetanus Booster (TDap): Less than 5yrs First/Initial COVID19 Vaccinat: UNKNOWN DATE Second COVID19 Vaccination Parveen: UNKNOWN DATE Third COVID19 Vaccination Date: UNKNOWN DATE Seasonal Allergies Seasonal Allergies: No Past Medical History Surgery/Hospitalization HX: PMH: TYPE 1 DM, ANXIETY Surgeries: Yes (BMT'S) Ear Surgery Respiratory: Yes Asthma Currently Using CPAP: No Currently Using BIPAP: No Cardiac: No Neurological: No Reproductive Disorders: No Sexually Transmitted Disease: No HIV/AIDS: No Genitourinary: No Gastrointestinal: No Musculoskeletal: No Endocrine: Yes Diabetes, Insulin dep HEENT: Yes Chronic Ear Infection Loss of Vision: Denies Hearing Impairment: Denies Cancer: No Psychosocial: Yes Depression Integumentary: No Blood Disorders: No Family Medical History Cardiovascular disease 19 MOTHER Kidney disease 19 MOTHER Heart Disease, Renal Disease Physical Exam Vital Signs Vital Signs - First Documented 05/05/22 17:38 Temp 36.6 Pulse 111 Resp 13 B/P (MAP) 111/62 (78) Pulse Ox 97 O2 Delivery Room Air Capillary Refill : Height, Weight, BMI Height: 5'11.00" Weight: 130lbs. oz. 58.911573uu; 18.14 BMI Method:Actual General Appearance: WD/WN, no apparent distress HEENT: PERRL/EOMI Cardiovascular: regular rate, rhythm Respiratory: no respiratory distress, no accessory muscle use Hips: bilateral hip normal range of motion, bilateral hip no evidence of injury Legs: bilateral leg non-tender, bilateral leg normal inspection, bilateral leg normal range of motion, bilateral leg no evidence of injury Knees: bilateral knee non-tender, bilateral knee normal inspection, bilateral knee normal range of motion, bilateral knee no evidence of injury Ankles: right ankle bone tenderness (Bilateral malleoli), right ankle other (No swelling noted to the distal right leg, ankle or foot. Distal pulses are intact. Normal sensation.; Patient is apprehensive with range of motion and stress on the right ankle) Feet: bilateral foot non-tender, bilateral foot normal inspection, bilateral foot normal range of motion, bilateral foot no evidence of injury Neurologic/Tendon: normal sensation Neurologic/Psychiatric: alert, normal mood/affect, oriented x 3 Skin: normal color, warm/dry Progress/Results/Core Measures Results/Orders My Orders Orders - JONATHAN REYNOSO MD Ankle, Right, 3 Views (05/05/22 17:49) Vital Signs/I&O 05/05/22 17:38 Temp 36.6 Pulse 111 Resp 13 B/P (MAP) 111/62 (78) Pulse Ox 97 O2 Delivery Room Air Diagnostic Imaging Diagonstic Imaging: Xray Comments right ankle xray - interpreted by me - no fracture or dislocation Departure Impression Primary Impression: Sprain and strain of ankle Disposition: HOME, SELF-CARE Condition: Stable Departure-Patient Inst. Decision time for Depature: 17:54 Referrals: GERARDO ENNIS DO (PCP/Family) Primary Care Physician Patient Instructions: Ankle Sprain ED Add. Discharge Instructions: Take [id number] Tylenol as needed extra strength 2 tablets every 6 hours for pain You can apply ice packs to the right ankle to help with swelling and discomfort. Keep an Emory wrap around the ankle for the next 24 to 48 hours. Multiple medical studies have shown that walking on an ankle sprain actually speed healing. If you have any new, concerning or emergent complaints please come back to the emergency room for reevaluation. Copy Copies To 1: GERARDO ENNIS KATHRYN M MD May 05, 2022 17:55
--- NOTE | 2022-05-05 18:09 | Diagnostic Imaging Report ---
INDICATION: Right ankle pain and swelling. FINDINGS: The distal tibia and fibula demonstrate no findings of cortical disruption or acute fracture. There is no widening of the ankle mortise. There is normal morphology of the talar dome. The bones of the hindfoot demonstrate no acute process. IMPRESSION: Normal ankle alignment without findings of fracture. There is no widening of the ankle mortise. Dictated by: Dictated on workstation # [id number]
[2022-05-05 18:18] VITALS: BP 111/62
== END 2022-05-05 18:18 | disposition home or self-care (01) ==
LOC: EDUNIT# 17:32 → ER 17:34
DX: S93.401A Sprain of unspecified ligament of right ankle, initial encounter (principal); F17.210 Nicotine dependence, cigarettes, uncomplicated; X50.1XXA Overexertion from prolonged static or awkward postures, initial encounter; W18.30XA Fall on same level, unspecified, initial encounter
CPT/HCPCS: 73610

== ENCOUNTER 2022-06-07 14:38 | Emergency (ER) | payer MEDICAID ==
--- NOTE | 2022-06-07 15:26 | ED EENT ---
History of Present Illness General Chief Complaint: Eye Problems Stated Complaint: RIGHT EYE SWOLLEN/PAINFUL Source: patient Exam Limitations: no limitations History of Present Illness Date Seen by Provider: Jun 07, 2022 Time Seen by Provider: 14:58 Initial Comments Patient is a 22-year-old male who presents to the emergency department with a chief complaint of right eyelid discomfort, swelling and redness. He is an insulin-dependent diabetic who recently got Dexcom. His blood sugars currently 348. He states the swelling and discomfort in his right upper eyelid started on Wednesday. He has not been using anything for the discomfort. 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 No visual complaints. All other ROS reviewed and negative except as stated. Timing/Duration: abrupt Location: eye (R) Prearrival Treatment: no prearrival treatment Associated Symptoms: denies symptoms Allergies and Home Medications Allergies Coded Allergies: NKANo Known Allergies (Unverified Allergy, Mild, 02/08/09) Patient Home Medication List Home Medication List Reviewed: Yes Cholecalciferol (Vitamin D3) (Vitamin D3) 25 Mcg Tablet, 25 MCG PO DAILY, (Reported) Entered as Reported by: ESTHER JOHNSON on 01/01/22 1045 Insulin Degludec (Tresiba Flextouch U-100) 100 Unit/1 Ml Insuln.pen, 40 UNIT SQ HS, (Reported) Entered as Reported by: ESTHER JOHNSON on 01/01/22 1045 Insulin Lispro (Insulin Lispro Kwikpen U-100) 100 Unit/1 Ml Insuln.pen, UNIT SQ AC, (Reported) Entered as Reported by: ESTHER JOHNSON on 01/01/22 1045 Multivitamin (Multivitamin) 1 Each Tablet, 1 EACH PO DAILY, (Reported) Entered as Reported by: ESTHER JOHNSON on 01/01/22 1045 Trazodone HCl (Trazodone HCl) 100 Mg Tablet, 200 MG PO HS PRN for SLEEP Prescribed by: GERARDO ENNIS on 04/01/22 0842 Review of Systems Review of Systems Constitutional: see HPI Eyes: Foreign Body Sensation, Inflammation Ears: No Symptoms Reported Mouth: no symptoms reported Respiratory: no symptoms reported Cardiovascular: no symptoms reported Gastrointestinal: no symptoms reported Musculoskeletal: no symptoms reported Skin: no symptoms reported All Other Systems Reviewed Negative Unless Noted: Yes Past Tkcfing-Pbfqzy-Kxwlnj Hx Patient Social History Tobacco Use?: No Use of E-Cig and/or Vaping dev: Yes E-Cig or Vaping type used: Nicotine Substance use?: Yes Substance type: Marijuana Pt feels they are or have been: No Immunizations Up To Date Tetanus Booster (TDap): Less than 5yrs Influenza Vaccine Up-to-Date: Yes; Up-to-Date First/Initial COVID19 Vaccinat: UNKNOWN DATE Second COVID19 Vaccination Parveen: UNKNOWN DATE Third COVID19 Vaccination Date: UNKNOWN DATE Seasonal Allergies Seasonal Allergies: No Past Medical History Surgery/Hospitalization HX: PMH: TYPE 1 DM, ANXIETY Surgeries: Yes (BMT'S) Ear Surgery Respiratory: Yes Asthma Currently Using CPAP: No Currently Using BIPAP: No Cardiac: No Neurological: No Reproductive Disorders: No Sexually Transmitted Disease: No HIV/AIDS: No Genitourinary: No Gastrointestinal: No Musculoskeletal: No Endocrine: Yes Diabetes, Insulin dep HEENT: Yes Chronic Ear Infection Loss of Vision: Denies Hearing Impairment: Denies Cancer: No Psychosocial: Yes Depression Integumentary: No Blood Disorders: No Family Medical History Cardiovascular disease 19 MOTHER Kidney disease 19 MOTHER Heart Disease, Renal Disease Physical Exam Vital Signs Vital Signs - First Documented 06/07/22 14:53 Temp 37.2 Pulse 100 Resp 18 B/P (MAP) 122/68 (86) Height, Weight, BMI Height: 5'11.00" Weight: 130lbs. oz. 58.353719af; 18.00 BMI Method:Actual General Appearance: WD/WN, no apparent distress Eyes: right eye lid inflammation, right eye stye (small stye right upper lid, laterally; mild erythema.); left eye normal inspection, left eye PERRL, left eye EOMI Nose: normal inspection Neck: full range of motion Cardiovascular: regular rate, rhythm Respiratory: no respiratory distress, no accessory muscle use Neurologic/Psychiatric: alert, normal mood/affect, oriented x 3 Skin: normal color, warm/dry Progress/Results/Core Measures Results/Orders Vital Signs/I&O 06/07/22 14:53 Temp 37.2 Pulse 100 Resp 18 B/P (MAP) 122/68 (86) Departure Impression Primary Impression: Hordeolum externum (stye) Qualified Codes: H00.011 - Hordeolum externum right upper eyelid Disposition: 01 HOME, SELF-CARE Condition: Stable Departure-Patient Inst. Decision time for Depature: 15:28 Referrals: GERARDO ENNIS DO (PCP/Family) Primary Care Physician Patient Instructions: Trena (Hordeolum) Add. Discharge Instructions: Cool compresses to the right eye. Antibiotic ointment to the right eye as directed for 1 week. Try not to rub on the lid or irritate the area. If you have a fever, increased pain or swelling or drainage - please come back for re-evaluation. Follow up with your primary care doctor. Scripts Erythromycin Base (Erythromycin Opthalmic Ointment) 5 Mg/Gram (0.5 %) Oint...g. 0 OP Q4H for 7 Days, #1 EA 1/2 inch to right eyelid 4-6 times a day for 1 week Prov: JONATHAN REYNOSO MD 06/07/22 Copy Copies To 1: GERARDO ENNSI KATHRYN M MD Jun 07, 2022 15:26
[2022-06-07] MEDS ORDERED: ERYT1OIN6 OP (15:31)
[2022-06-07 15:35] VITALS: BP 122/68
== END 2022-06-07 15:35 | disposition home or self-care (01) ==
LOC: EDUNIT# 14:38 → ER 14:41
DX: H00.011 Hordeolum externum right upper eyelid (principal); E11.9 Type 2 diabetes mellitus without complications; Z79.4 Long term (current) use of insulin
CPT/HCPCS: 99281

== ENCOUNTER → 2022-10-19 | Outpatient (CLI) | payer MEDICAID ==
[~2022-10-19] MED LIST changes: +ERYT1OIN6 OP
[2022-10-19 16:30] LABS: ALBUMIN 3.9 GM/DL (3.2-4.5); BILIRUBIN,TOTAL 0.7 MG/DL (0.1-1.0); CALCIUM 9.2 MG/DL (8.5-10.1); CREATININE SERUM 0.88 MG/DL (0.60-1.30); POTASSIUM 3.8 MMOL/L (3.6-5.0); TOTAL PROTEIN 7.1 GM/DL (6.4-8.2)
== END ==
LOC: LAB 15:29
PROVIDERS: ATTEND Family Medicine
DX: E10.65 Type 1 diabetes mellitus with hyperglycemia (principal)
CPT/HCPCS: 36415; 80053; 83036

== ENCOUNTER 2023-01-19 02:44 | Inpatient (IN) | payer MEDICAID ==
[~2023-01-19] VITALS: Ht 180 cm; Wt 64.0 kg
[2023-01-19] MEDS ORDERED: ONDANSETRON 4 MG/2 ML (SDV) Z0FRAN IVP ONE (03:15)
[2023-01-19] MEDS ORDERED: NS IV 1000 ML 1,000 ML IV SCH ×4 (03:15→06:45)
--- NOTE | 2023-01-19 03:32 | ED General ---
General Chief Complaint: Glucose Problems Stated Complaint: HIGH BLOOD SUGAR ABD PAIN/VOMITING Nursing Triage Note: Pt to ED5 per WC w c/o "DKA and severe pain" around belly button area. Pt reports he is a type 1 DM and cannot afford insulin or to check blood sugar. Reports that he took blood sugar earlier today and it was 594, states he has not taken insulin in "a few days" Source of Information: Patient (EXTREMELY DIFFICULT HISTORIAN, VERY BELLIGERENT FROM TIME OF ARRIVAL), Old Records (MOST OF PMH IS FROM OLD RECORDS, PT IS BELLIGERENT AND EXTREMELY DIFFICULT HISTORIAN AND NOT WANTING TO ANSWER QUESTIONS AT THIS TIME) History of Present Illness Date Seen by Provider: Jan 19, 2023 Time Seen by Provider: 03:00 Initial Comments PT ARRIVES VIA POV FROM HOME PT IS TYPE 1 DIABETIC, DX 09/2017 HE HAS LONG HISTORY OF EXTREME NON-COMPLIANCE IN ALL ASPECTS OF CARE, AND HAS HAD MULTIPLE EPISODES OF DKA PT STATES HE HAS "FELT BAD" " FOR A COUPLE OF DAYS" C/O NAUSEA AND VOMITING--UNABLE TO STATE HOW MANY TIMES HE HAS VOMITED C/O SEVERE MID ABDOMINAL PAIN C/O SEVERE THIRST--CONSTANTLY WANTING WATER FROM TIME OF ARRIVAL HE HAS ALSO HAD COUGH AND CONGESTION STATES HE IS URINATING, BUT NOT MUCH HE HAD BEEN STATES HE HAS NOT HAD ANY INSULIN "FOR A COUPLE OF DAYS" --CANNOT STATE WHEN HE LAST USED ANY INSULIN-STATES HE CANNOT AFFORD IT HE ALSO STATES HE DOES NOT CHECK BLOOD SUGAR, BECAUSE HE DOES NOT HAVE ANY STRIPS, BECAUSE HE CANNOT AFFORD IT. HE CANNOT STATE WHEN HE LAST CHECKED HIS BLOOD SUGAR. PT SMOKES AT LEAST 1 PPD OF CIGARETTES, AND HE SMOKES MARIJUANA DAILY. HE HAS SMOKED BOTH REGULAR CIGARETTES AND MARIJUANA MULTIPLE TIMES TODAY--LAST TIME WAS JUST PRIOR TO ARRIVAL ADDITIONALLY, HE HAS HISTORY OF HEAVY, DAILY ALCOHOL USE. HE CLAIMS NO USE RECENTLY HE ALSO HAS HISTORY OF DAILY METHAMPHETAMINE USE. HE CLAIMS NO USE RECENTLY HE IS UNEMPLOYED, AND LIVES WITH HIS DAD. PCP: HE LISTS DR. ENNIS HIS DR BUT STATES HE NEVER SEES HER. DOES NOT SEE ANYONE--JUST COMES TO ER FOR ALL MEDICAL CARE Allergies and Home Medications Allergies Coded Allergies: NKANo Known Allergies (Unverified Allergy, Mild, 02/08/09) Patient Home Medication List Home Medication List Reviewed: Yes Insulin Degludec (Tresiba Flextouch U-100) 100 Unit/Ml (3 Ml) Insuln.pen, 42 UNIT SQ HS, (Reported) Entered as Reported by: ESTHER JOHNSON on 01/01/221044 Last Action: Reviewed Insulin Lispro (Insulin Lispro Kwikpen U-100) 100 Unit/Ml Insuln.pen, UNIT SQ AC, (Reported) Entered as Reported by: ESTHER JOHNSON on 01/01/221044 Last Action: Reviewed Lurasidone HCl (Lurasidone HCl) 80 Mg Tablet, 80 MG PO 1800 W/ DINNER, (Reported) Entered as Reported by: ESTHER JOHNSON on 01/19/231422 Last Action: Reviewed Lurasidone HCl (Lurasidone HCl) 20 Mg Tablet, 20 MG PO 1800 W/DINNER, (Reported) Entered as Reported by: ESTHER JOHNSON on 01/19/231422 Last Action: Reviewed Discontinued Medications Cholecalciferol (Vitamin D3) (Vitamin D3) 25 Mcg Tablet, 25 MCG PO DAILY, (Reported) Discontinued Reason: No Longer Taking Entered as Reported by: ESTHER JOHNSON on 01/01/221044 Last Action: Discontinued Erythromycin Base (Erythromycin Opthalmic Ointment) 5 Mg/Gram (0.5 %) Oint...g., 0 OP Q4H Discontinued Reason: No Longer Taking Prescribed by: JONATHAN REYNOSO on 06/07/22 1531 Last Action: Discontinued Multivitamin (Multivitamin) 1 Each Tablet, 1 EACH PO DAILY, (Reported) Discontinued Reason: No Longer Taking Entered as Reported by: ESTHER JOHNSON on 01/01/221044 Last Action: Discontinued Trazodone HCl (Trazodone HCl) 100 Mg Tablet, 200 MG PO HS PRN for SLEEP Discontinued Reason: No Longer Taking Prescribed by: GERARDO ENNIS on 04/01/22 0842 Last Action: Discontinued Review of Systems Review of Systems Constitutional: malaise EENTM: nose congestion, other (DRY MOUTH, THIRST) Respiratory: see HPI, cough, short of breath (HYPERVENTILATING) Cardiovascular: see HPI Gastrointestinal: see HPI, abdominal pain, nausea, vomiting Psychiatric/Neurological: Anxiety Past Hgjkejd-Vgstse-Wvnosa Hx Patient Social History Tobacco Use?: Yes Tobacco type used: Cigarettes Smoking Status: Current Everyday Smoker Use of E-Cig and/or Vaping dev: No Substance use?: Yes Substance type: Methamphetamine, Marijuana Substance frequency: Daily Alcohol Use?: Yes Alcohol type: Hard Liquor Pt feels they are or have been: No Immunizations Up To Date Tetanus Booster (TDap): Less than 5yrs Influenza Vaccine Up-to-Date: No; Not Current First/Initial COVID19 Vaccinat: UNKNOWN DATE Second COVID19 Vaccination Parveen: UNKNOWN DATE Third COVID19 Vaccination Date: UNKNOWN DATE 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: [employer] Seasonal Allergies Seasonal Allergies: No Past Medical History Surgery/Hospitalization HX: PMH: TYPE 1 DM, ANXIETY Surgeries: Yes (BMT'S) Ear Surgery Respiratory: Yes Asthma Currently Using CPAP: No Currently Using BIPAP: No Cardiac: No Neurological: No Reproductive Disorders: No Sexually Transmitted Disease: No HIV/AIDS: No Genitourinary: No Gastrointestinal: No Musculoskeletal: No Endocrine: Yes (DX 09/2017) Diabetes, Insulin dep HEENT: Yes Chronic Ear Infection Loss of Vision: Denies Hearing Impairment: Denies Cancer: No Psychosocial: Yes Depression Integumentary: No Blood Disorders: No Family Medical History Cardiovascular disease 19 MOTHER Kidney disease 19 MOTHER Heart Disease, Renal Disease SOCIAL HISTORY: -SMOKES 1 PPD - HISTORY OF HEAVY DAILY, ETOH USE - HISTORY OF METH USE ( SNORTED IT AND SMOKED IT--DENIES IV USE) WELL THC USE AND CORICIDIN HPB "JET FUEL" HE ALSO SMOKES MARIJUANA DAILY. MULTIPLE EPISODES OF DKA EXTREME NON-COMPLIANCE IN ALL ASPECTS OF CARE Physical Exam Vital Signs Vital Signs - First Documented 01/19/23 03:01 Temp 35.9 Pulse 124 Resp 28 B/P (MAP) 105/76 (86) Pulse Ox 98 O2 Delivery Room Air Capillary Refill : Height, Weight, BMI Height: 5'11.00" Weight: 130lbs. oz. 58.791552jh; 19.00 BMI Method:Actual General Appearance: No Apparent Distress, WD/WN, Cachetic, Other (FILTHY, UNKEMPT, LONG HAIR IS MATTED, REEKS OF CIGARETTES AND MARIJUANA) HEENT: Other (ORAL MUCOSA VERY DRY) Neck: Normal Inspection Respiratory: No Rales, No Rhonci, No Wheezing; Other (HYPERVENTILATING) Cardiovascular: No Edema, No JVD, No Murmur, Tachycardia Gastrointestinal: Normal Bowel Sounds, Soft, Tenderness (MID AND EPIGASTRIC TENDERNESS) Back: No CVA Tenderness Extremity: Normal Capillary Refill, No Pedal Edema Neurologic/Psychiatric: Alert, Oriented x3, No Motor/Sensory Deficits, Other (BEHAVIOR NOTED ABOVE) Skin: Normal Color, Cool (DRY) Focused Exam Sepsis Stage: Severe Sepsis Possible Source: Unknown Lactate Level 01/19/23 06:04: Lactic Acid Level 2.54*H Time of Focused Exam: 04:20 Respiratory: Normal Breath Sounds, Other ([id number]) Cardiovascular: No Edema, No Murmur, Normal Peripheral Pulses, Tachycardia Capillary Refill: Less Than 3 Seconds Skin: normal color, warm/dry Lactic Acid Level Laboratory Tests Test 01/19/23 03:29 01/19/23 06:04 Lactic Acid Level 4.90 MMOL/L (0.50-2.00) *H 2.54 MMOL/L (0.50-2.00) *H Within 3hrs of presentation: Admin fluids, Admin ABX, Blood cultures prior to ABX's, Focus exam, Lactate level Progress/Results/Core Measures Suspected Sepsis SIRS Temperature: Pulse: 124 Respiratory Rate: 28 Laboratory Tests 01/19/23 03:21: White Blood Count 28.3H Blood Pressure 105 /76 Mean: 86 01/19/23 06:04: Lactic Acid Level 2.54*H Laboratory Tests 01/19/23 03:21: INR Comment 1.1, Platelet Count 338, Total Bilirubin 0.7 Results/Orders Lab Results Laboratory Tests Test 01/19/23 03:04 01/19/23 03:17 01/19/23 03:21 01/19/23 03:29 Range/Units Glucometer 540 *H 70-110 MG/DL Venous Blood pH 6.96 L 7.31-7.41 Venous Blood Partial Pressure CO2 45 40-52 MMHG Venous Blood HCO3 10 L 22-28 MMOL/L White Blood Count 28.3 H 4.3-11.0 10^3/uL Red Blood Count 6.63 H 4.30-5.52 10^6/uL Hemoglobin 20.5 H 13.3-17.7 g/dL Hematocrit 60 H 40-54 % Mean Corpuscular Volume 91 80-99 fL Mean Corpuscular Hemoglobin 31 25-34 pg Mean Corpuscular Hemoglobin Concent 34 32-36 g/dL Red Cell Distribution Width 11.9 10.0-14.5 % Platelet Count 338 130-400 10^3/uL Mean Platelet Volume 10.8 9.0-12.2 fL Immature Granulocyte % (Auto) 4 % Neutrophils (%) (Auto) 76 H 42-75 % Lymphocytes (%) (Auto) 13 12-44 % Monocytes (%) (Auto) 7 0-12 % Eosinophils (%) (Auto) 0 0-10 % Basophils (%) (Auto) 0 0-10 % Neutrophils # (Auto) 21.5 H 1.8-7.8 10^3/uL Lymphocytes # (Auto) 3.7 1.0-4.0 10^3/uL Monocytes # (Auto) 2.0 H 0.0-1.0 10^3/uL Eosinophils # (Auto) 0.0 0.0-0.3 10^3/uL Basophils # (Auto) 0.1 0.0-0.1 10^3/uL Immature Granulocyte # (Auto) 1.1 H 0.0-0.1 10^3/uL Neutrophils % (Manual) 77 % Lymphocytes % (Manual) 17 % Monocytes % (Manual) 5 % Eosinophils % (Manual) 1 % Blood Morphology Comment NORMAL Erythrocyte Sedimentation Rate 1 0-15 MM/HR Prothrombin Time 14.3 12.2-14.7 SEC INR Comment 1.1 0.8-1.4 Activated Partial Thromboplast Time 29 24-35 SEC Sodium Level 135 135-145 MMOL/L Potassium Level 5.4 H 3.6-5.0 MMOL/L Chloride Level 95 L 98-107 MMOL/L Carbon Dioxide Level < 5 *L 21-32 MMOL/L Anion Gap 35 H 5-14 MMOL/L Blood Urea Nitrogen 26 H 7-18 MG/DL Creatinine 2.54 H 0.60-1.30 MG/DL Estimat Glomerular Filtration Rate 36 BUN/Creatinine Ratio 10 Glucose Level 591 *H 70-105 MG/DL Calcium Level 10.2 H 8.5-10.1 MG/DL Corrected Calcium 8.5-10.1 MG/DL Magnesium Level 2.7 H 1.6-2.4 MG/DL Total Bilirubin 0.7 0.1-1.0 MG/DL Aspartate Amino Transf (AST/SGOT) 22 5-34 U/L Alanine Aminotransferase (ALT/SGPT) 42 0-55 U/L Alkaline Phosphatase 146 H 40-136 U/L C-Reactive Protein High Sensitivity 0.14 0.00-0.50 MG/DL Total Protein 9.9 H 6.4-8.2 GM/DL Albumin 5.3 H 3.2-4.5 GM/DL Amylase Level 29 25-125 U/L Lipase 24 8-78 U/L Beta-Hydroxybutyrate (Chem panel) 13.57 H 0.00-0.27 MMOL/L Serum Alcohol < 10 <10 MG/DL SARS-CoV-2 RNA (RT-PCR) Not Detected Not Detecte Lactic Acid Level 4.90 *H 0.50-2.00 MMOL/L Test 01/19/23 04:16 01/19/23 04:56 01/19/23 06:00 01/19/23 06:04 Range/Units Urine Color YELLOW Urine Clarity CLEAR Urine pH 6.0 5-9 Urine Specific [place] >=1.030 1.016-1.022 Urine Protein 2+ H NEGATIVE Urine Glucose (UA) 2+ H NEGATIVE Urine Ketones 3+ H NEGATIVE Urine Nitrite NEGATIVE NEGATIVE Urine Bilirubin 1+ H NEGATIVE Urine Urobilinogen 0.2 < = 1.0 MG/DL Urine Leukocyte Esterase NEGATIVE NEGATIVE Urine RBC (Auto) 1+ H NEGATIVE Urine RBC NONE /HPF Urine WBC NONE /HPF Urine Crystals NONE /LPF Urine Bacteria NEGATIVE /HPF Urine Casts PRESENT /LPF Urine Hyaline Casts RARE /LPF Urine Mucus NEGATIVE /LPF Urine Other /HPF Urine Culture Indicated CULTURE PENDING Urine Opiates Screen NEGATIVE NEGATIVE Urine Oxycodone Screen NEGATIVE NEGATIVE Urine Methadone Screen NEGATIVE NEGATIVE Urine Propoxyphene Screen NEGATIVE NEGATIVE Urine Barbiturates Screen NEGATIVE NEGATIVE Ur Tricyclic Antidepressants Screen POSITIVE H NEGATIVE Urine Phencyclidine Screen NEGATIVE NEGATIVE Urine Amphetamines Screen NEGATIVE NEGATIVE Urine Methamphetamines Screen NEGATIVE NEGATIVE Urine Benzodiazepines Screen NEGATIVE NEGATIVE Urine Cocaine Screen NEGATIVE NEGATIVE Urine Cannabinoids Screen POSITIVE H NEGATIVE Glucometer 393 H 70-110 MG/DL Lactic Acid Level 2.54 *H 0.50-2.00 MMOL/L My Orders Orders - JASEN JUAREZ DO Accucheck Stat ONCE (01/19/23 03:01) Ed Iv/Invasive Line Start (01/19/23 03:01) Monitor-Rhythm Ecg Trace Only (01/19/23 03:01) Alcohol (01/19/23 03:01) Amylase (01/19/23 03:01) Cbc With Automated Diff (01/19/23 03:01) Comprehensive Metabolic Panel (01/19/23 03:01) Hs C Reactive Protein (01/19/23 03:01) Drug Screen Stat (Urine) (01/19/23 03:01) Lactic Acid Analyzer (01/19/23 03:01) Lipase (01/19/23 03:01) Magnesium (01/19/23 03:01) Ua Culture If Indicated (01/19/23 03:01) Erythrocyte Sedimentation Rate (01/19/23 03:01) Ed Iv/Invasive Line Start (01/19/23 03:01) Ns Iv 1000 Ml (Sodium Chloride 0.9%) (01/19/23 03:15) Ondansetron Injection (Zofran Injectio (01/19/23 03:15) Venous Blood Gas (01/19/23 03:17) Ed Iv/Invasive Line Start (01/19/23 03:18) Ns Iv 1000 Ml (Sodium Chloride 0.9%) (01/19/23 03:30) Ed Iv/Invasive Line Start (01/19/23 03:18) Ns Iv 1000 Ml (Sodium Chloride 0.9%) (01/19/23 03:30) Covid 19 Inhouse Test (01/19/23 03:24) Manual Differential (01/19/23 03:21) Blood Culture (01/19/23 03:48) Urine Culture (01/19/23 03:48) Protime With Inr (01/19/23 03:48) Partial Thromboplastin Time (01/19/23 03:48) Chest 1 View, Ap/Pa Only (01/19/23 03:48) Ed Iv/Invasive Line Start (01/19/23 03:48) Ed Iv/Invasive Line Start (01/19/23 03:48) Vital Signs Adult Sepsis Patie Q15M (01/19/23 03:48) O2 (01/19/23 03:48) Remove Rings In Anticipation O (01/19/23 03:48) Cefepime Injection (Maxipime Injection) (01/19/23 04:00) Sodium Bicarbonate 8.4% Syr (Sodium Bica (01/19/23 04:00) Ct Chest/Abdomen/Pelvis Wo (01/19/23 03:52) Beta Hydroxybutyrate (01/19/23 03:59) Hemoglobin A1c (01/19/23 03:59) Fentanyl Inj (Sublimaze Injection) (01/19/23 04:13) Insulin (Regular) Human (Novolin R (Per (01/19/23 04:30) Accucheck Stat ONCE (01/19/23 06:04) Medications Given in ED Vital Signs/I&O 01/19/23 01/19/23 03:01 03:18 Temp 35.9 Pulse 124 Resp 28 B/P (MAP) 105/76 (86) Pulse Ox 98 O2 Delivery Room Air Room Air Capillary Refill : Blood Pressure Mean: 86 Point of Care Testing Finger Stick Blood Glucose: 540 Progress Note : Progress Note PPE WORN COVID TESTING DONE SEPSIS PROTOCOL INITIATED AFTER RECEIVING WBC COUNT OF 28,000 ACCUCHECK 540 ON ARRIVAL GIVEN: -IV FLUIDS -ZOFRAN -CEFEPIME -BICARB -FENTANYL PT VOIDED 250 ML ON ARRIVAL. VOIDED AN ADDITIONAL 800 ML DURING ER STAY UNABLE TO OBTAIN ARTERIAL BLOOD GAS, BUT ABLE TO OBTAIN VENOUS BLOOD GAS FOR PH NO VOMITING DURING ER STAY NAUSEA IMPROVED PAIN IMPROVED VITALS STABLE, NO HYPOTENSION DURING ER STAY. NO FEVER PT IS NO LONGER HYPERVENTILATING PT IS CALMER REPEAT GLUCOSE PRIOR TO ADMIT 393 OF NOTE, COMPUTER SYSTEM CRASHED UNEXPECTEDLY DURING PT'S ER STAY, DELAYING CARE REVIEWED PRIOR RECORDS, INCLUDING ER VISITS, ADMITS/H&PS'/CONSULTS/DISCHARGE SUMMARIES, TESTS/PROCEDURES DISCUSSED TEST RESULTS, NEED FOR ADMIT AND PT IS AGREEABLE TO PLAN Diagnostic Imaging Comments CXR--NO ACUTE PROCESS, PENDING RADIOLOGIST REVIEW CT ABDOMEN/PELVIS--PER RADIOLOGIST REPORT AT Lungs are clear. There are no effusions or pneumothoraces. There is no hilar or mediastinal lymphadenopathy. Liver appears normal. Gallbladder is present. Pancreas is normal. Spleen is not enlarged. Kidneys and adrenals appear normal. Urinary bladder is normal. There is no intraperitoneal free air or free fluid. Small bowel is unremarkable. Appendix is normal. There is a moderate amount of stool in the colon. IMPRESSION: No acute abnormality seen in the chest, abdomen or pelvis. Reviewed: Reviewed by [facility] Departure Communication (Admissions) [id number]--SPOKE WITH DR. ENNIS, SHE STATES THAT PT IS NO LONGER HER PATIENT, DUE TO EXTREME NON-COMPLIANCE, AND PT NO LONGER HAS INSURANCE, AND THIS WAS DISCUSSED WITH PT AND HIS FATHER LAST WEEK VIA PHONE [phone]--SPOKE WITH DR. WEBSTER, HOSPITALIST. ACCEPTS PT FOR ADMIT 0546--REPORT TO E-ICU PHYSICIAN, DR. PATEL. Impression Primary Impression: DKA (diabetic ketoacidosis) Additional Impressions: Severe sepsis Non-compliance Dehydration Acute kidney injury Acute renal insufficiency Hyperkalemia Cannabis abuse, daily use Heavy cigarette smoker Disposition: ADMITTED INPATIENT Condition: Stable Admissions Decision to Admit Reason: Admit from ER (General) Decision to Admit/Date: Jan 19, 2023 Time/Decision to Admit Time: 04:20 Departure-Patient Inst. Referrals: GERARDO ENNIS DO (PCP/Family) Primary Care Physician JASEN JUAREZ DO Jan 19, 2023 03:32
[2023-01-19 03:36] LABS: BASOPHILS # (AUTO) 0.1 10^3/uL (0.0-0.1); BASOPHILS % (AUTO) 0 % (0-10); EOSINOPHILS % (AUTO) 0 % (0-10); HEMATOCRIT 60 % (40-54); HEMOGLOBIN 20.5 g/dL (13.3-17.7); LYMPHOCYTES # (AUTO) 3.7 10^3/uL (1.0-4.0); LYMPHOCYTES % (AUTO) 13 % (12-44); MEAN CORPUSCULAR HEMOGLOBIN 31 pg (25-34); MEAN CORPUSCULAR HGB CONC 34 g/dL (32-36); MEAN CORPUSCULAR VOLUME 91 fL (80-99); MEAN PLATELET VOLUME 10.8 fL (9.0-12.2); MONOCYTES % (AUTO) 7 % (0-12); NEUTROPHILS # (AUTO) 21.5 10^3/uL (1.8-7.8); NEUTROPHILS % (AUTO) 76 % (42-75); PLATELET COUNT 338 10^3/uL (130-400); WHITE BLOOD COUNT 28.3 10^3/uL (4.3-11.0)
[2023-01-19 03:51] LABS: ALBUMIN 5.3 GM/DL (3.2-4.5); CHLORIDE 95 MMOL/L (98-107); POTASSIUM 5.4 MMOL/L (3.6-5.0); SODIUM 135 MMOL/L (135-145)
[2023-01-19 03:53] LABS: AMYLASE 29 U/L (25-125); CALCIUM 10.2 MG/DL (8.5-10.1)
[2023-01-19 03:54] LABS: TOTAL PROTEIN 9.9 GM/DL (6.4-8.2)
[2023-01-19 03:55] LABS: BILIRUBIN,TOTAL 0.7 MG/DL (0.1-1.0)
[2023-01-19 03:57] LABS: ALKALINE PHOSPHATASE 146 U/L (40-136)
[2023-01-19 03:58] LABS: CREATININE SERUM 2.54 MG/DL (0.60-1.30); GFR ESTIMATED 36
[2023-01-19 03:59] LABS: BUN/CREATININE RATIO 10
[2023-01-19 04:00] LABS: MAGNESIUM 2.7 MG/DL (1.6-2.4)
[2023-01-19] MEDS ORDERED: CEFEPIME INJECTION 1,000 MG in NS (IVPB) 50 ML IV ONE (04:00)
[2023-01-19] MEDS ORDERED: SODIUM BICARB 8.4% 50 MEQ/50 ML (ABBOTT) SYR IV ONE (04:00)
[2023-01-19 04:01] LABS: ALANINE AMINOTRANSFERASE 42 U/L (0-55); LIPASE 24 U/L (8-78)
[2023-01-19 04:07] LABS: INR 1.1 (0.8-1.4); PROTHROMBIN TIME PATIENT 14.3 SEC (12.2-14.7)
[2023-01-19 04:12] LABS: NEUTROPHILS % (MANUAL) 77 %
[2023-01-19 04:13] LABS: EOSINOPHILS % (MANUAL) 1 %; ERYTHROCYTE SEDIMENTATION RATE 1 MM/HR (0-15); LYMPHOCYTES % (MANUAL) 17 %; MONOCYTES % (MANUAL) 5 %; RBC MORPH NORMAL
[2023-01-19] MEDS ORDERED: fentaNYL INJ 100 MCG/2 ML AMP IVP STA (04:13)
[2023-01-19 04:15] LABS: CARBON DIOXIDE < 5 MMOL/L (21-32); GLUCOSE 591 MG/DL (70-105)
[2023-01-19] MEDS ORDERED: inSUlin (REGULAR) HUMAN 1 UNIT/0.01 ML (CHARGE PER UNIT) SC ONE (04:30)
[2023-01-19 04:32] LABS: CLARITY,URINE CLEAR; COLOR,URINE YELLOW; GLUCOSE, URINE (UA) 2+ (NEGATIVE); KETONES,URINE 3+ (NEGATIVE); LEUKOCYTE ESTERASE ,URINE NEGATIVE (NEGATIVE); NITRITE,URINE NEGATIVE (NEGATIVE); PROTEIN,URINE 2+ (NEGATIVE)
[2023-01-19 04:58] LABS: AMPHETAMINE SCREEN, URINE NEGATIVE (NEGATIVE); BARBITURATE SCREEN URINE NEGATIVE (NEGATIVE); BENZODIAZEPINES SCREEN URINE NEGATIVE (NEGATIVE); CANNABINOID SCREEN, URINE POSITIVE (NEGATIVE); COCAINE SCREEN URINE NEGATIVE (NEGATIVE); OPIATE SCREEN URINE NEGATIVE (NEGATIVE)
[2023-01-19 04:59] LABS: METHADONE STAT NEGATIVE (NEGATIVE); OXYCODONE STAT NEGATIVE (NEGATIVE); PROPOXYPHENE STAT NEGATIVE (NEGATIVE); TRICYCLIC ANTIDEPRESSANTS SCRE POSITIVE (NEGATIVE)
[2023-01-19 05:00] LABS: BACTERIA,URINE NEGATIVE /HPF; BILIRUBIN,URINE 1+ (NEGATIVE); HYALINE CASTS, URINE RARE /LPF
--- NOTE | 2023-01-19 05:36 | Diagnostic Imaging Report ---
PROCEDURE: CT chest, abdomen, and pelvis without contrast. TECHNIQUE: Multiple contiguous axial images were obtained through the chest, abdomen, and pelvis without the use of intravenous contrast. Auto Exposure Controls were utilized during the CT exam to meet ALARA standards for radiation dose reduction. INDICATION: Sepsis, diabetic ketoacidosis Lungs are clear. There are no effusions or pneumothoraces. There is no hilar or mediastinal lymphadenopathy. Liver appears normal. Gallbladder is present. Pancreas is normal. Spleen is not enlarged. Kidneys and adrenals appear normal. Urinary bladder is normal. There is no intraperitoneal free air or free fluid. Small bowel is unremarkable. Appendix is normal. There is a moderate amount of stool in the colon. IMPRESSION: No acute abnormality seen in the chest, abdomen or pelvis. Dictated by: Dictated on workstation # [id number]
[2023-01-19] MEDS ORDERED: NS IV 500 ML 500 ML IV PRN (06:45)
--- NOTE | 2023-01-19 06:50 | Diagnostic Imaging Report ---
INDICATION: Sepsis, severe pain EXAMINATION: Chest 01/19/2023 COMPARISON: 03/26/2022 FINDINGS: The cardiomediastinal silhouette is unremarkable. The pulmonary vasculature is within normal limits. The lungs and pleural spaces are clear. IMPRESSION: No evidence of an acute cardiopulmonary process. Dictated by: Dictated on workstation # [id number]
[2023-01-19] MEDS ORDERED: fentaNYL INJ 100 MCG/2 ML AMP IV PRN (07:00)
[2023-01-19] MEDS ORDERED: ONDANSETRON 4 MG/2 ML (SDV) Z0FRAN IV PRN (07:00)
[2023-01-19] MEDS: 1/2 NS IV SOLUTION 1,000 ML IV SCH ×4 (07:05→19:21)
[2023-01-19] MEDS: POTASSIUM CL 10MEQ/50ML IVPB 50 ML IV SCH ×8 (08:03→23:35)
[2023-01-19] MEDS: PANTOPRAZOLE 40 MG (PROTONIX) VIAL IV SCH (08:03)
[2023-01-19] MEDS: D5 1/2 NS 1000 ML IV SOLUTION 1,000 ML IV SCH ×5 (08:35→23:35)
[2023-01-19 09:21] LABS: BUN/CREATININE RATIO 13; CALCIUM 8.9 MG/DL (8.5-10.1); CHLORIDE 109 MMOL/L (98-107); CREATININE SERUM 1.74 MG/DL (0.60-1.30); GFR ESTIMATED 57; GLUCOSE 284 MG/DL (70-105); POTASSIUM 4.9 MMOL/L (3.6-5.0); SODIUM 140 MMOL/L (135-145)
[2023-01-19 09:34] LABS: CARBON DIOXIDE < 5 MMOL/L (21-32)
[2023-01-19] MEDS: CEFEPIME 1,000 MG/NS 50 ML IVPB IV SCH ×6 (10:10→21:03)
--- NOTE | 2023-01-19 12:21 | Tele-ICU Progress Note ---
Subjective Date Seen by a Provider: Jan 19, 2023 Time Seen by a Provider: 12:20 Subjective/Events-last exam (Tele-ICU Physician , Consultation as per PCP) Service provided via interactive audio and video telecommunications E-CARE system to a patient admitted to ICU bed in [facility]. Available chart/ vitals / labs / Images reviewed Video assessment done using teleICU camera, rest of exam as per RN 22 y/o M with PMhx of DM1 and hx of noncompliance and multiple hospitalizations for DKA presents with c/o n/v/abdominal pain found to have elevated sugars to Per ED note has not had insulin or supplies 2/2 difficulty affording. Admits to marijuana use prior to coming into hospital as well as daily methamphetamine use. IN ER VS notable for tachycardia. His labs showed leukocytosis to 28 as well as elevated Lactic acid to 4.9. BS > 500 and BHB elevated to 13.57. AG 37 SH: Lives with DAD Smoking: cigarettes daily Drug: + methamphetamine/marijuana ETOH: + daily hard liquor FH: No hx of DM A/P Neuro: Stable A&OX3 CV: Stable Resp: On RA. CXR with no acute process GI: NPO, will advance to clears once anion gap closes Endo: DKA, admission glucose 390. -Continue IV hydration with D5 half-normal saline. Insulin per protocol IV -Monitor electrolytes, magnesium and phosphate frequently and supplement electrolyte as needed Renal: MIRTHA likely 2/2 dehydration. IVF hydration per protocol Heme: Markedly elevated hemoglobin is most likely due to volume contraction ID: Leukocytosis likely 2/2 significant dehydration. Received broad spectrum anitbiotics in ER. Ok to d/c given no obvious source of infection. Received PPx: SCD Plans in collaboration with bedside consultants and IM MDs Discussed with RN to reach out if any questions or concerns A total of 35 minutes of critical care time was devoted to this patient today, required to treat and/or prevent further deterioration of critical care condition (as above) I am remotely monitoring this patient from another state. I am unable to do the bedside exam, and history/physical and pertinent information is taken from other notes in the computer and bedside staff. Sepsis Event Evaluation Height, Weight, BMI Height: 5'11.00" Weight: 130lbs. oz. 58.324753ue; 19.59 BMI Method:Actual Focused Exam Lactate Level 01/19/23 03:29: Lactic Acid Level 4.90*H 01/19/23 06:04: Lactic Acid Level 2.54*H 01/19/23 09:30: Lactic Acid Level 3.23*H Time of Focused Exam: 04:20 Lactic Acid Level Laboratory Tests Test 01/19/23 09:30 Lactic Acid Level 3.23 MMOL/L (0.50-2.00) *H Exam Exam Patient acknowledged, consented, and participated in this virtual visit which was conducted using real time audio/video Vital Signs Date Time Temp Pulse Resp B/P (MAP) Pulse Ox O2 Delivery O2 Flow Rate FiO2 01/19/23 12:14 96 01/19/23 12:00 95 40 107/60 (76) 99 Room Air 01/19/23 11:51 36.2 01/19/23 11:00 106 26 96/55 (69) 99 Room Air 01/19/23 10:00 103 26 122/67 (85) 99 Room Air 01/19/23 09:00 117 24 138/84 (102) 100 Room Air 01/19/23 08:00 129 37 97/84 (88) 99 Room Air 01/19/23 07:25 36.7 01/19/23 07:00 117 48 136/76 (96) 99 Room Air 01/19/23 06:49 112 01/19/23 06:46 36.3 121 29 151/72 (98) 99 Room Air 01/19/23 06:38 115 22 151/73 100 Room Air 01/19/23 03:18 Room Air 01/19/23 03:01 35.9 124 28 105/76 (86) 98 Room Air I & O 01/19/23 07:00 Intake Total 3050 ml Balance 3050 ml Height & Weight Height: 5'11.00" Weight: 130lbs. oz. 58.887461us; 19.59 BMI Method:Actual General Appearance: No Apparent Distress, WD/WN, Cachetic, Other (FILTHY, UNKEMPT, LONG HAIR IS MATTED, REEKS OF CIGARETTES AND MARIJUANA) HEENT: Other (ORAL MUCOSA VERY DRY) Neck: Normal Inspection Respiratory: Normal Breath Sounds, Other ([id number]) Cardiovascular: No Edema, No Murmur, Normal Peripheral Pulses, Tachycardia Capillary Refill: Less Than 3 Seconds Extremity: Normal Capillary Refill, No Pedal Edema Neurologic/Psychiatric: Alert, Oriented x3, No Motor/Sensory Deficits, Other (BEHAVIOR NOTED ABOVE) Skin: Normal Color, Cool (DRY) Results Lab Laboratory Tests 01/19/23 03:21 01/19/23 08:49 Assessment/Plan Assessment/Plan . ANDREY AIKEN MD Jan 19, 2023 12:21
[2023-01-19 12:58] LABS: CALCIUM 8.3 MG/DL (8.5-10.1); CREATININE SERUM 1.43 MG/DL (0.60-1.30); POTASSIUM 4.8 MMOL/L (3.6-5.0)
[2023-01-19] MEDS ORDERED: CEFEPIME 1,000 MG/NS 50 ML IVPB IV SCH ×2 (13:00)
[2023-01-19] MEDS ORDERED: LURA20TA2 PO (14:23)
[2023-01-19] MEDS ORDERED: LURA80TA4 PO (14:23)
[2023-01-19 17:29] LABS: POTASSIUM 4.2 MMOL/L (3.6-5.0)
[2023-01-19 17:35] LABS: CREATININE SERUM 1.25 MG/DL (0.60-1.30)
--- NOTE | 2023-01-19 19:31 | History & Physical ---
History of Present Illness History of Present Illness Reason for visit/HPI This is a 22 year old male with insulin dependent diabetes mellitus I with a history of noncompliance and numerous admissions for DKA who presented to the hospital with a 2 day history of abdominal pain with nausea and vomiting. He was found to be in DKA with acute renal failure and electrolyte abnormalities. He will be admitted to the ICU on aggressive IVFs, insulin drip and DKA protocol . Date of Admission Jan 19, 2023 at 06:37 Date Seen by a Provider: Jan 19, 2023 Time Seen by a Provider: 08:40 I consulted on this patient on 01/19/23 19:25 Attending Physician No,Local Physician Admitting Physician Admitting Physician: Will Quinn MD Attending Physician: Gerardo Luther DO Consult Allergies and Home Medications Allergies Coded Allergies: NKANo Known Allergies (Unverified Allergy, Mild, 02/08/09) Patient Home Medication List Home Medication List Reviewed: Yes Insulin Degludec (Tresiba Flextouch U-100) 100 Unit/Ml (3 Ml) Insuln.pen, 42 UNIT SQ HS, (Reported) Entered as Reported by: ESTHER JOHNSON on 01/01/221044 Last Action: Reviewed Insulin Lispro (Insulin Lispro Kwikpen U-100) 100 Unit/Ml Insuln.pen, UNIT SQ AC, (Reported) Entered as Reported by: ESTHER JOHNSON on 01/01/221044 Last Action: Reviewed Lurasidone HCl (Lurasidone HCl) 80 Mg Tablet, 80 MG PO 1800 W/ DINNER, (Reported) Entered as Reported by: ESTHER JOHNSON on 01/19/231422 Last Action: Reviewed Lurasidone HCl (Lurasidone HCl) 20 Mg Tablet, 20 MG PO 1800 W/DINNER, (Reported) Entered as Reported by: ESTHER JOHNSON on 01/19/231422 Last Action: Reviewed Discontinued Medications Cholecalciferol (Vitamin D3) (Vitamin D3) 25 Mcg Tablet, 25 MCG PO DAILY, (Reported) Discontinued Reason: No Longer Taking Entered as Reported by: ESTHER JOHNSON on 01/01/221044 Last Action: Discontinued Erythromycin Base (Erythromycin Opthalmic Ointment) 5 Mg/Gram (0.5 %) Oint...g., 0 OP Q4H Discontinued Reason: No Longer Taking Prescribed by: JONATHAN REYNOSO on 06/07/22 1531 Last Action: Discontinued Multivitamin (Multivitamin) 1 Each Tablet, 1 EACH PO DAILY, (Reported) Discontinued Reason: No Longer Taking Entered as Reported by: ESTHER JOHNSON on 01/01/22 1045 Last Action: Discontinued Trazodone HCl (Trazodone HCl) 100 Mg Tablet, 200 MG PO HS PRN for SLEEP Discontinued Reason: No Longer Taking Prescribed by: GERARDO LUTHER on 04/01/22 0842 Last Action: Discontinued Past Utlznzh-[id number]-Ofnncu Hx Patient Social History Tobacco Use?: Yes Tobacco type used: Cigarettes Smoking Status: Current Everyday Smoker Use of E-Cig and/or Vaping dev: No Substance use?: Yes Substance type: Marijuana Substance frequency: Couple times a week Alcohol Use?: No Alcohol type: Hard Liquor Pt feels they are or have been: No Immunizations Up To Date Date of Influenza Vaccine: Aug 05, 2020 First/Initial COVID19 Vaccinat: UNKNOWN DATE Second COVID19 Vaccination Parveen: UNKNOWN DATE Tetanus Booster (TDap): Unknown Seasonal Allergies Seasonal Allergies: No Current Status Advance Directives: No Communicates: Verbally Primary Language: Paraguayan Preferred Spoken Language: Paraguayan Is interpretation needed?: No Past Medical History Surgeries: Ear Surgery Asthma Currently Using CPAP: No Currently Using BIPAP: No Sexually Transmitted Disease: No HIV/AIDS: No Diabetes, Insulin dep Chronic Ear Infection Loss of Vision: Denies Hearing Impairment: Denies Depression Blood Disorders: No Family Medical History Cardiovascular disease 19 MOTHER Kidney disease 19 MOTHER Heart Disease, Renal Disease SOCIAL HISTORY: -SMOKES 1 PPD - HISTORY OF HEAVY DAILY, ETOH USE - HISTORY OF METH USE ( SNORTED IT AND SMOKED IT--DENIES IV USE) WELL THC USE AND CORICIDIN HPB "JET FUEL" HE ALSO SMOKES MARIJUANA DAILY. MULTIPLE EPISODES OF DKA EXTREME NON-COMPLIANCE IN ALL ASPECTS OF CARE Review of Systems Constitutional: weakness EENTM: No see HPI, No no symptoms reported, No ear discharge, No hearing loss, No ear pain, No blurred vision, No double vision, No eye pain, No tearing, No vision loss, No dental problems, No hoarseness, No mouth pain, No mouth swelling, No epistaxis, No nose congestion, No nose pain, No throat pain, No throat swelling, No other Respiratory: short of breath Cardiovascular: chest pain (lower central) Gastrointestinal: abdominal pain (epigastric), nausea, vomiting Genitourinary: decreased output Musculoskeletal: No no symptoms reported, No see HPI, No back pain, No gout, No joint pain, No joint swelling, No muscle pain, No muscle stiffness, No muscle cramps, No muscle twitching, No muscle weakness, No neck pain, No other Skin: No no symptoms reported, No see HPI, No change in color, No change in hair/nails, No dryness, No hx of skin cancer, No lesions, No lumps, No pruritus, No rash, No other Psychiatric/Neurological: Depressed Physical Exam Vital Signs Vital Signs - First Documented 01/19/23 03:01 Temp 35.9 Pulse 124 Resp 28 B/P (MAP) 105/76 (86) Pulse Ox 98 O2 Delivery Room Air Capillary Refill : Less Than 3 Seconds Height, Weight, BMI Height: 5'11.00" Weight: 130lbs. oz. 58.679424yh; 19.59 BMI Method:Actual General Appearance: Mild Distress HEENT: Other (MM and lips dry) Neck: Supple Respiratory: Lungs Clear Cardiovascular: Tachycardia Gastrointestinal: Normal Bowel Sounds, Soft, Tenderness (epigastric) Back: No CVA Tenderness Extremity: Non Tender, No Calf Tenderness, No Pedal Edema Neurologic/Psychiatric: Alert, Oriented x3 Skin: Warm/Dry Comments Laboratory Tests 01/19/23 03:04: Glucometer 540*H 01/19/23 03:17: Venous Blood pH 6.96L, Venous Blood Partial Pressure CO2 45, Venous Blood HCO3 10L 01/19/23 03:21: White Blood Count 28.3H, Red Blood Count 6.63H, Hemoglobin 20.5H, Hematocrit 60H , Mean Corpuscular Volume 91, Mean Corpuscular Hemoglobin 31, Mean Corpuscular Hemoglobin Concent 34, Red Cell Distribution Width 11.9, Platelet Count 338, Mean Platelet Volume 10.8, Immature Granulocyte % (Auto) 4, Neutrophils (%) ( Auto) 76H, Lymphocytes (%) (Auto) 13, Monocytes (%) (Auto) 7, Eosinophils (%) (Auto) 0, Basophils (%) (Auto) 0, Neutrophils # (Auto) 21.5H, Lymphocytes # (Auto) 3.7, Monocytes # (Auto) 2.0H, Eosinophils # (Auto) 0.0, Basophils # (Auto) 0.1, Immature Granulocyte # (Auto) 1.1H, Neutrophils % (Manual) 77, Lymphocytes % (Manual) 17, Monocytes % (Manual) 5, Eosinophils % (Manual) 1, Blood Morphology Comment NORMAL, Erythrocyte Sedimentation Rate 1, Prothrombin Time 14.3, INR Comment 1.1, Activated Partial Thromboplast Time 29, Sodium Level 135, Potassium Level 5.4H, Chloride Level 95L, Carbon Dioxide Level < 5*L, Anion Gap 35H, Blood Urea Nitrogen 26H, Creatinine 2.54H, Estimat Glomerular Filt ration Rate 36, BUN/Creatinine Ratio 10, Glucose Level 591*H, Calcium Level 10.2H, Corrected Calcium , Magnesium Level 2.7H, Total Bilirubin 0.7, Aspartate Amino Transf (AST/SGOT) 22, Alanine Aminotransferase (ALT/SGPT) 42, Alkaline Phosphatase 146H, C-Reactive Protein High Sensitivity 0.14, Total Protein 9.9H, Albumin 5.3H, Amylase Level 29, Lipase 24, Beta-Hydroxybutyrate (Chem panel) 13.57H, Serum Alcohol < 10, SARS-CoV-2 RNA (RT-PCR) Not Detected 01/19/23 03:29: Lactic Acid Level 4.90*H 01/19/23 04:16: Urine Color YELLOW, Urine Clarity CLEAR, Urine pH 6.0, Urine Specific Flippin >=1.030, Urine Protein 2+H, Urine Glucose (UA) 2+H, Urine Ketones 3+H, Urine Nitrite NEGATIVE, Urine Bilirubin 1+H, Urine Urobilinogen 0.2, Urine Leukocyte Esterase NEGATIVE, Urine RBC (Auto) 1+H, Urine RBC NONE, Urine WBC NONE, Urine Crystals NONE, Urine Bacteria NEGATIVE, Urine Casts PRESENT, Urine Hyaline Casts RARE, Urine Mucus NEGATIVE, Urine Other , Urine Culture Indicated CULTURE PENDING, Urine Opiates Screen NEGATIVE, Urine Oxycodone Screen NEGATIVE, Urine Methadone Screen NEGATIVE, Urine Propoxyphene Screen NEGATIVE, Urine Barbitur ates Screen NEGATIVE, Ur Tricyclic Antidepressants Screen POSITIVEH, Urine Phencyclidine Screen NEGATIVE, Urine Amphetamines Screen NEGATIVE, Urine Methamphetamines Screen NEGATIVE, Urine Benzodiazepines Screen NEGATIVE, Urine Cocaine Screen NEGATIVE, Urine Cannabinoids Screen POSITIVEH 01/19/23 04:56: Mean Blood Glucose [Pending], Hemoglobin A1c [Pending] 01/19/23 06:00: Glucometer 393H 01/19/23 06:04: Lactic Acid Level 2.54*H 01/19/23 06:50: Glucometer 395H 01/19/23 07:56: Glucometer 287H 01/19/23 08:49: Sodium Level 140, Potassium Level 4.9, Chloride Level 109H, Carbon Dioxide Level < 5*L, Anion Gap 26H, Blood Urea Nitrogen 22H, Creatinine 1.74H, Estimat Glomerular Filtration Rate 57, BUN/Creatinine Ratio 13, Glucose Level 284H, Calcium Level 8.9 01/19/23 08:57: Glucometer 216H 01/19/23 09:30: Lactic Acid Level 3.23*H 01/19/23 10:31: Glucometer 207H 01/19/23 11:29: Glucometer 253H 01/19/23 12:25: Lactic Acid Level 1.68, Sodium Level 134L, Potassium Level 4.8, Chloride Level 110H, Carbon Dioxide Level 6*L, Anion Gap 18H, Blood Urea Nitrogen 18, Creatinine 1.43H, Estimat Glomerular Filtration Rate 72, BUN/Creatinine Ratio 13, Glucose Level 206H, Calcium Level 8.3L 01/19/23 13:31: Glucometer 154H 01/19/23 14:58: Glucometer 219H 01/19/23 15:43: Glucometer 220H 01/19/23 16:04: Glucometer 234H 01/19/23 17:15: Sodium Level 135, Potassium Level 4.2, Chloride Level 113H, Carbon Dioxide Level 11L, Anion Gap 11, Blood Urea Nitrogen 14, Creatinine 1.25, Estimat Glomerular Filtration Rate 85, BUN/Creatinine Ratio 11, Glucose Level 249H, Calcium Level 8.0L 01/19/23 17:20: Glucometer 222H 01/19/23 18:15: Glucometer 233H Assessment/Plan Assessment and Plan 1. Acute DKA with electrolyte abnormalities, severe dehydration, acute renal failure, leukocytosis, polycythemia--admit to ICU with insulin drip, aggessive IVFs, insulin protocol 2. Poorly Controlled Insulin Dependent Diabetes Mellitus I with noncompliance and history of frequent admissions for DKA--patient is losing Medicaid at the end of this month so discussed him following up with [facility] to be able to get his insulin and medications as well as labs and follow up, patient is asking about getting on disability for his diabetes and I explained that diabetes is generally not a disability qualifier unless someone has had an amputation or is in renal failure on dialysis, etc. 3. Depression--was seeing psych at [facility] 4. Epigastric pain--will start IV protonix Admission Diagnosis Admission Status: Inpatient Order (span 2 midnights) Reason for Inpatient Admission: Will need ICU for at least 24-48hrs for DKA protocol Clinical Quality Measures Smoking Cessation Counseling: Counseling-Asymptomatic: 3-10 minutes GERARDO LUTHER DO Jan 19, 2023 19:31
[2023-01-19] MEDS: MELATONIN 10 MG TABLET PO SCH (21:03)
[2023-01-19 23:12] LABS: POTASSIUM 3.6 MMOL/L (3.6-5.0)
[2023-01-19 23:13] LABS: CALCIUM 7.9 MG/DL (8.5-10.1)
[2023-01-19 23:17] LABS: CREATININE SERUM 0.98 MG/DL (0.60-1.30)
[2023-01-20] MEDS: POTASSIUM CL 10MEQ/50ML IVPB 50 ML IV SCH ×4 (01:44→08:22)
[2023-01-20] MEDS: CEFEPIME 1,000 MG/NS 50 ML IVPB IV SCH ×8 (03:56→21:25)
[2023-01-20] MEDS: D5 1/2 NS 1000 ML IV SOLUTION 1,000 ML IV SCH ×2 (03:56→08:11)
[2023-01-20 05:07] LABS: BASOPHILS % (AUTO) 0 % (0-10); EOSINOPHILS # (AUTO) 0.1 10^3/uL (0.0-0.3); EOSINOPHILS % (AUTO) 0 % (0-10); HEMATOCRIT 41 % (40-54); HEMOGLOBIN 14.9 g/dL (13.3-17.7); LYMPHOCYTES % (AUTO) 20 % (12-44); MEAN CORPUSCULAR HEMOGLOBIN 31 pg (25-34); MEAN CORPUSCULAR HGB CONC 36 g/dL (32-36); MEAN CORPUSCULAR VOLUME 85 fL (80-99); MEAN PLATELET VOLUME 10.8 fL (9.0-12.2); MONOCYTES # (AUTO) 1.3 10^3/uL (0.0-1.0); MONOCYTES % (AUTO) 8 % (0-12); NEUTROPHILS # (AUTO) 10.9 10^3/uL (1.8-7.8); NEUTROPHILS % (AUTO) 71 % (42-75); PLATELET COUNT 197 10^3/uL (130-400); WHITE BLOOD COUNT 15.4 10^3/uL (4.3-11.0)
[2023-01-20 05:08] LABS: ALBUMIN 3.2 GM/DL (3.2-4.5); POTASSIUM 3.7 MMOL/L (3.6-5.0)
[2023-01-20 05:09] LABS: CALCIUM 8.3 MG/DL (8.5-10.1)
[2023-01-20 05:10] LABS: TOTAL PROTEIN 5.7 GM/DL (6.4-8.2)
[2023-01-20 05:12] LABS: BILIRUBIN,TOTAL 0.9 MG/DL (0.1-1.0)
[2023-01-20 05:13] LABS: PHOSPHORUS 1.8 MG/DL (2.3-4.7)
[2023-01-20 05:14] LABS: CREATININE SERUM 0.9 MG/DL (0.60-1.30)
[2023-01-20 05:16] LABS: MAGNESIUM 1.8 MG/DL (1.6-2.4)
[2023-01-20] MEDS ORDERED: KCL 20 MEQ TAB (K-DUR) PO SCH (06:00)
[2023-01-20] MEDS ORDERED: MAGNESIUM 1 GM/100 ML IVPB 100 ML IV SCH (06:00)
[2023-01-20] MEDS ORDERED: POTASSIUM CL 10MEQ/50ML IVPB 50 ML IV SCH (06:00)
[2023-01-20] MEDS: 1/2 NS IV SOLUTION 1,000 ML IV SCH ×3 (08:22→10:47)
--- NOTE | 2023-01-20 08:56 | Progress Note ---
Subjective Date Seen by a Provider: Jan 20, 2023 Time Seen by a Provider: 08:54 Subjective/Events-last exam Fwup DKA. Feeling much better and wants to go home. Focused Exam Lactate Level 01/19/23 06:04: Lactic Acid Level 2.54*H 01/19/23 09:30: Lactic Acid Level 3.23*H 01/19/23 12:25: Lactic Acid Level 1.68 Time of Focused Exam: 04:20 Objective Exam Vital Signs Date Time Temp Pulse Resp B/P (MAP) Pulse Ox O2 Delivery O2 Flow Rate FiO2 01/20/23 07:57 36.6 01/20/23 07:23 78 01/20/23 06:00 66 12 116/67 (83) 97 Room Air 01/20/23 05:00 75 22 118/73 (88) 97 Room Air 01/20/23 04:00 98 Room Air 01/20/23 04:00 36.6 Room Air 01/20/23 04:00 74 12 122/86 (98) 100 Room Air 01/20/23 03:00 83 12 126/85 (99) 97 Room Air 01/20/23 02:00 78 25 133/81 (98) 96 Room Air 01/20/23 01:00 86 22 132/87 (102) 96 Room Air 01/20/23 00:51 94 01/20/23 00:00 79 20 120/65 (83) 96 Room Air 01/20/23 00:00 36.7 Room Air 01/20/23 00:00 97 Room Air 01/19/23 23:00 82 18 122/66 (84) 98 Room Air 01/19/23 22:00 81 23 137/74 (95) 96 Room Air 01/19/23 21:00 89 38 115/63 (80) 98 Room Air 01/19/23 20:09 98 Room Air 01/19/23 20:00 88 27 115/53 (73) 97 Room Air 01/19/23 19:54 36.9 01/19/23 19:01 101 01/19/23 19:00 105 32 124/75 (91) 100 Room Air 01/19/23 18:00 95 13 111/62 (78) 98 Room Air 01/19/23 17:00 99 38 105/60 (75) 98 Room Air 01/19/23 16:34 Room Air 01/19/23 16:00 92 25 121/72 (88) 98 Room Air 01/19/23 15:59 36.8 01/19/23 15:00 102 17 106/59 (75) 99 Room Air 01/19/23 14:00 94 26 112/73 (86) 99 Room Air 01/19/23 13:00 98 32 122/75 (91) 100 Room Air 01/19/23 12:15 Room Air 01/19/23 12:14 96 01/19/23 12:00 95 40 107/60 (76) 99 Room Air 01/19/23 11:51 36.2 01/19/23 11:00 106 26 96/55 (69) 99 Room Air 01/19/23 10:00 103 26 122/67 (85) 99 Room Air 01/19/23 09:00 117 24 138/84 (102) 100 Room Air I & O 01/20/23 07:00 Intake Total 4175 ml Output Total 3850 ml Balance 325 ml Capillary Refill : Less Than 3 Seconds General Appearance: No Apparent Distress Neck: Supple Respiratory: Lungs Clear Cardiovascular: Regular Rate, Rhythm Gastrointestinal: normal bowel sounds, non tender, soft Neurologic/Psychiatric: Alert, Oriented x3 Skin: Warm/Dry Results Lab Laboratory Tests 01/19/23 08:57: Glucometer 216H 01/19/23 09:30: Lactic Acid Level 3.23*H 01/19/23 10:31: Glucometer 207H 01/19/23 11:29: Glucometer 253H 01/19/23 12:25: Sodium Level 134L, Potassium Level 4.8, Chloride Level 110H, Carbon Dioxide Level 6*L, Anion Gap 18H, Blood Urea Nitrogen 18, Creatinine 1.43H, Estimat Glomerular Filtration Rate 72, BUN/Creatinine Ratio 13, Glucose Level 206H, Lactic Acid Level 1.68, Calcium Level 8.3L 01/19/23 13:31: Glucometer 154H 01/19/23 14:58: Glucometer 219H 01/19/23 15:43: Glucometer 220H 01/19/23 16:04: Glucometer 234H 01/19/23 17:15: Sodium Level 135, Potassium Level 4.2, Chloride Level 113H, Carbon Dioxide Level 11L, Anion Gap 11, Blood Urea Nitrogen 14, Creatinine 1.25, Estimat Glomerular Filtration Rate 85, BUN/Creatinine Ratio 11, Glucose Level 249H, Calcium Level 8.0L 01/19/23 17:20: Glucometer 222H 01/19/23 18:15: Glucometer 233H 01/19/23 19:48: Glucometer 186H 01/19/23 20:57: Glucometer 175H 01/19/23 21:52: Glucometer 149H 01/19/23 22:50: Sodium Level 136, Potassium Level 3.6, Chloride Level 114H, Carbon Dioxide Level 13L, Anion Gap 9, Blood Urea Nitrogen 10, Creatinine 0.98, Estimat Glomerular Filtration Rate 113, BUN/Creatinine Ratio 10, Glucose Level 148H, Calcium Level 7.9L 01/19/23 23:59: Glucometer 132H 01/20/23 01:04: Glucometer 118H 01/20/23 02:02: Glucometer 108 01/20/23 02:58: Glucometer 127H 01/20/23 03:44: White Blood Count 15.4H, Red Blood Count 4.86, Hemoglobin 14.9#, Hematocrit 41, Mean Corpuscular Volume 85, Mean Corpuscular Hemoglobin 31, Mean Corpuscular Hemoglobin Concent 36, Red Cell Distribution Width 11.7, Platelet Count 197, Mean Platelet Volume 10.8, Immature Granulocyte % (Auto) 1, Neutrophils (%) (Auto) 71, Lymphocytes (%) (Auto) 20, Monocytes (%) (Auto) 8, Eosinophils (%) (Auto) 0, Basophils (%) (Auto) 0, Neutrophils # (Auto) 10.9H, Lymphocytes # (Auto) 3.0, Monocytes # (Auto) 1.3H, Eosinophils # (Auto) 0.1, Basophils # (Auto) 0.0, Immature Granulocyte # (Auto) 0.1, Sodium Level 137, Potassium Level 3.7, Chloride Level 114H, Carbon Dioxide Level 13L, Anion Gap 10, Blood Urea Nitrogen 9, Creatinine 0.90, Estimat Glomerular Filtration Rate 125, BUN/Creatinine Ratio 10, Glucose Level 112H, Calcium Level 8.3L, Corrected Calcium 8.9, Phosphorus Level 1.8L, Magnesium Level 1.8, Total Bilirubin 0.9, Aspartate Amino Transf (AST/SGOT) 12, Alanine Aminotransferase (ALT/SGPT) 19, Alkaline Phosphatase 70, Total Protein 5.7L, Albumin 3.2, Beta-Hydroxybutyrate (Chem panel) 0.64H 01/20/23 04:00: Glucometer 114H 01/20/23 05:00: Glucometer 150H 01/20/23 05:56: Glucometer 145H 01/20/23 06:56: Glucometer 152H 01/20/23 08:02: Glucometer 157H Microbiology 01/19/23 MRSA Screen - Final, Complete MRSA not isolated 01/19/23 Urine Culture - Preliminary, Resulted Strep Species, Beta Hemolytic Assessment/Plan Assessment/Plan Assess & Plan/Chief Complaint 1. DKA--DC insulin drip and start levemir with SSI C, continue IVFs and elec trolyte replacement, discussed likely home tomorrow Clinical Quality Measures Admission Status Admission Dx 1. Acute DKA with electrolyte abnormalities, severe dehydration, acute renal failure, leukocytosis, polycythemia--admit to ICU with insulin drip, aggessive IVFs, insulin protocol 2. Poorly Controlled Insulin Dependent Diabetes Mellitus I with noncompliance and history of frequent admissions for DKA--patient is losing Medicaid at the end of this month so discussed [facility] to be able to get his insulin and medications as well as labs and follow up, patient is asking about getting on disability for his diabetes and I explained that diabetes is generally not a disability qualifier unless someone has had an amputation or is in renal failure on dialysis, etc. 3. Depression--was seeing psych at [facility] 4. Epigastric pain--will start IV protonix Smoking Cessation Counseling: Counseling-Asymptomatic: 3-10 minutes GERARDO ENNIS DO Jan 20, 2023 08:56
[2023-01-20] MEDS ORDERED: POTASSIUM PHOSPHATE INJ 15 MM in NS (IVPB) 250 ML IV ONE (09:00)
[2023-01-20] MEDS: PANTOPRAZOLE 40 MG (PROTONIX) VIAL IV SCH (09:33)
[2023-01-20] MEDS: inSUlin ASPART (NovoLOG) 1 UNIT/0.01 ML (CHARGE PER UNIT) SC SCH ×3 (11:37→21:22)
[2023-01-20 16:04] VITALS: BP 111/71
[2023-01-20 20:22] VITALS: BP 110/71
[2023-01-20] MEDS: MELATONIN 10 MG TABLET PO SCH (21:25)
[2023-01-21] VITALS: BP 116/57
--- NOTE | 2023-01-21 00:23 | Physician Query Clarification ---
PQ-Uncertain Diagnosis Admission/Discharge Admission Date: Jan 19, 2023 at 06:37 Discharge Date: The medical record reflects the following clinical scenario: History/Risk Factors: diabetic ketoacidosis Clinical Findings: diabetic ketoacidosis Treatment: IV insulin, IV fluids Question: Is severe sepsis a clinically valid diagnosis? Severe sepsis was documented in the ED Record, Dr. Horton with no further documentation in the medical record. Please document a response in Progress Note or Discharge Summary. 1. Yes, clinically valid, condition resolved. 2. No, condition ruled out. 3. Other, with explanation of clinical findings. 4. Undetermined, no explanation for clinical findings. PHYSICIAN RESPONSE Diagnosis clinically valid: No, conditon ruled out In responding to this query, please exercise your independent professional judgment. The purpose of this communication is to more accurately reflect the complexity of your patients condition. The fact that a question is asked does not imply that any particular answer is desired or expected. Thank you for your timely response to this clarification. Requestors name: Orin THIS PHYSICIAN QUERY FORM IS A PERMANENT PART OF THE MEDICAL RECORD ORIN KIM Jan 21, 2023 00:23 GERARDO ENNIS DO Jan 21, 2023 18:00
[2023-01-21 04:00] VITALS: BP 112/65
[2023-01-21] MEDS: CEFEPIME 1,000 MG/NS 50 ML IVPB IV SCH ×4 (04:29→10:52)
[2023-01-21 06:10] LABS: BASOPHILS % (AUTO) 1 % (0-10); EOSINOPHILS # (AUTO) 0.1 10^3/uL (0.0-0.3); EOSINOPHILS % (AUTO) 1 % (0-10); HEMATOCRIT 42 % (40-54); HEMOGLOBIN 15.2 g/dL (13.3-17.7); LYMPHOCYTES # (AUTO) 2.6 10^3/uL (1.0-4.0); LYMPHOCYTES % (AUTO) 30 % (12-44); MEAN CORPUSCULAR HEMOGLOBIN 31 pg (25-34); MEAN CORPUSCULAR HGB CONC 37 g/dL (32-36); MEAN CORPUSCULAR VOLUME 84 fL (80-99); MEAN PLATELET VOLUME 10.6 fL (9.0-12.2); MONOCYTES % (AUTO) 12 % (0-12); NEUTROPHILS # (AUTO) 4.7 10^3/uL (1.8-7.8); NEUTROPHILS % (AUTO) 56 % (42-75); PLATELET COUNT 169 10^3/uL (130-400); WHITE BLOOD COUNT 8.4 10^3/uL (4.3-11.0)
[2023-01-21 06:26] LABS: ALBUMIN 3.3 GM/DL (3.2-4.5); POTASSIUM 3.6 MMOL/L (3.6-5.0)
[2023-01-21 06:27] LABS: CALCIUM 8.6 MG/DL (8.5-10.1)
[2023-01-21 06:28] LABS: TOTAL PROTEIN 5.8 GM/DL (6.4-8.2)
[2023-01-21 06:30] LABS: BILIRUBIN,TOTAL 1.1 MG/DL (0.1-1.0)
[2023-01-21 06:32] LABS: CREATININE SERUM 0.71 MG/DL (0.60-1.30)
[2023-01-21 07:45] VITALS: BP 122/76
[2023-01-21] MEDS: inSUlin ASPART (NovoLOG) 1 UNIT/0.01 ML (CHARGE PER UNIT) SC SCH ×2 (08:01→10:51)
[2023-01-21] MEDS: PANTOPRAZOLE 40 MG (PROTONIX) VIAL IV SCH (10:52)
[2023-01-21 12:28] VITALS: BP 117/74
[2023-01-21 16:49] VITALS: BP 117/74
== END 2023-01-21 14:00 | disposition home or self-care (01) | DRG 638 ==
LOC: EDUNIT# 02:44 → ER 02:46 → ICU 06:37 → 4TH 01-20 13:21
PROVIDERS: ADMIT Internal Medicine; ATTEND Family Medicine
DX: E10.10 Type 1 diabetes mellitus with ketoacidosis without coma (principal); N17.9 Acute kidney failure, unspecified; E86.0 Dehydration; D75.1 Secondary polycythemia; D72.829 Elevated white blood cell count, unspecified; F32.A Depression, unspecified; F17.210 Nicotine dependence, cigarettes, uncomplicated; E87.5 Hyperkalemia; F12.90 Cannabis use, unspecified, uncomplicated; Z91.120 Patient's intentional underdosing of medication regimen due to financial hardship; Z91.141 Patient's other noncompliance with medication regimen due to financial hardship; Z79.4 Long term (current) use of insulin; Z20.822 Contact with and (suspected) exposure to COVID-19; F15.90 Other stimulant use, unspecified, uncomplicated; F41.9 Anxiety disorder, unspecified; J45.909 Unspecified asthma, uncomplicated
CPT/HCPCS: 36415; 71045; 71250; 74176; 80048; 80053; 80306; 80320; 81000; 82010; 82150; 82805; 82947; 83036; 83605; 83690; 83735; 84100; 85007; 85025; 85027; 85610; 85652; 85730; 86141; 87040; 87077; 87081; 87088; 87636; 93041

== ENCOUNTER 2023-02-12 21:01 | Inpatient (IN) | payer MEDICAID ==
[~2023-02-12] VITALS: Ht 180.3 cm; Wt 58.4 kg
[~2023-02-12 21:01] MED LIST changes: +LURA20TA2 PO; +LURA80TA4 PO
--- NOTE | 2023-02-12 21:13 | ED General ---
General Chief Complaint: Abdominal/GI Problems Stated Complaint: WEAKNESS/LETHARGIC/SOA/ABD PAIN Source of Information: Patient, Old Records History of Present Illness Date Seen by Provider: February 12, 2023 Time Seen by Provider: 21:07 Initial Comments PT ARRIVES VIA POV FROM HOME WITH A FEMALE PT IS TYPE 1 DIABETIC, DX 09/2017 HE HAS LONG HISTORY OF EXTREME NON-COMPLIANCE IN ALL ASPECTS OF CARE, AND HAS HAD MULTIPLE EPISODES OF DKA HIS MOST RECENT ADMIT WAS 01/19-01/21/23 FOR DKA. HE HAS NOT ATTEMPTED TO MAKE AN APPOINTMENT WITH ANYONE FOR FOLLOW UP SINCE THAT ADMIT. HE HAS NOT ATTEMPTED TO GET ANY SUPPLIES, OR ANY MEDICATIONS. HE HAS NOT TAKEN ANY INSULIN OR ANY MEDICATIONS OR CHECKED HIS BLOOD SUGAR AT ANY TIME SINCE HE WAS DISMISSED FROM THAT ADMIT. HE AGAIN CLAIMS HE CANNOT AFFORD IT. HE STATES HE REFUSES TO GO TO [facility]. EXHAUSTIVE ATTEMPTS IN THE PAST HAVE BEEN MADE TO ASSIST PT WITH GETTING SUPPLIES AND MEDICATIONS--PT HAS SIMPLY NOT ATTEMPTED TO FOLLOW THROUGH WITH ANY OF THESE MEASURES AFTER HE IS DISMISSED FROM THE HOSPITAL HE STATES HE BEGAN FEELING ILL AT 0300 THIS AM HE C/O SHARP GENERALIZED ABDOMINAL PAIN C/O NAUSEA AND VOMITING--UNABLE TO STATE HOW MANY TIMES HE HAS VOMITED C/O SEVERE THIRST STATES HE IS STILL URINATING, BUT UNABLE TO STATE HOW MANY TIMES HE HAS URINATED TODAY OR WHEN HE LAST URINATED. HE C/O BEING WEAK AND LETHARGIC STATES HE FEELS SHORT OF BREATH NO COUGH PT SMOKES AT LEAST 1 PPD OF CIGARETTES, AND HE SMOKES MARIJUANA DAILY. HE HAS SMOKED BOTH REGULAR CIGARETTES AND MARIJUANA MULTIPLE TIMES TODAY--LAST TIME WAS JUST PRIOR TO ARRIVAL ADDITIONALLY, HE HAS HISTORY OF HEAVY, DAILY ALCOHOL USE. HE CLAIMS NO USE RECENTLY HE ALSO HAS HISTORY OF DAILY METHAMPHETAMINE USE. HE CLAIMS NO USE RECENTLY HE IS UNEMPLOYED, AND LIVES WITH HIS DAD. HE HAS LISTED DR. ENNIS HIS DR ON PRIOR ADMITS, BUT HE ADMITS THAT HE NEVER SEES HER. I HAD PREVIOUSLY SPOKEN WITH DR. ENNIS AT PT'S LAST ADMIT, AND PT HAS BEEN DISMISSED FROM HER PRACTICE DUE TO EXTREME NON-COMPLIANCE, AND LOSS OF INSURANCE. PT ALSO ADMITS THAT HE NEVER GOES TO SEE HER, AND JUST COMES TO ER FOR ALL MEDICAL CARE. PCP: NONE Allergies and Home Medications Allergies Coded Allergies: AMADORANo Known Allergies (Unverified Allergy, Mild, 02/08/09) Patient Home Medication List Home Medication List Reviewed: Yes Insulin Degludec (Tresiba Flextouch U-100) 100 Unit/Ml (3 Ml) Insuln.pen, 42 UNIT SQ HS, (Reported) Entered as Reported by: ESTHER JOHNSON on 01/01/22 1045 Insulin Lispro (Insulin Lispro Kwikpen U-100) 100 Unit/Ml Insuln.pen, UNIT SQ AC, (Reported) Entered as Reported by: ESTHER JOHNSON on 01/01/22 1045 Lurasidone HCl (Lurasidone HCl) 80 Mg Tablet, 80 MG PO 1800 W/ DINNER, (Reported) Entered as Reported by: ESTHER JOHNSON on 01/19/23 1423 Lurasidone HCl (Lurasidone HCl) 20 Mg Tablet, 20 MG PO 1800 W/DINNER, (Reported) Entered as Reported by: ESTHER JOHNSON on 01/19/23 1423 Review of Systems Review of Systems Constitutional: see HPI, malaise, weakness EENTM: other (DRY MOUTH) Respiratory: see HPI, short of breath Cardiovascular: no symptoms reported Gastrointestinal: see HPI, abdominal pain, nausea, vomiting Genitourinary: see HPI Past Vtaasaj-Nxkcld-Zqkmcv Hx Patient Social History Tobacco Use?: Yes Tobacco type used: Cigarettes Smoking Status: Current Everyday Smoker Substance use?: Yes Substance type: Methamphetamine, Marijuana Substance frequency: Daily Alcohol Use?: Yes Alcohol type: Hard Liquor Alcohol Frequency: Daily Immunizations Up To Date Tetanus Booster (TDap): Less than 5yrs First/Initial COVID19 Vaccinat: UNKNOWN DATE Second COVID19 Vaccination Parveen: UNKNOWN DATE Third COVID19 Vaccination Date: UNKNOWN DATE Seasonal Allergies Seasonal Allergies: No Past Medical History Surgery/Hospitalization HX: PMH: TYPE 1 DM, ANXIETY Surgeries: Yes (BMT'S) Ear Surgery Respiratory: Yes Asthma Currently Using CPAP: No Currently Using BIPAP: No Cardiac: No Neurological: No Reproductive Disorders: No Sexually Transmitted Disease: No HIV/AIDS: No Genitourinary: No Gastrointestinal: No Musculoskeletal: No Endocrine: Yes (DX 09/2017) Diabetes, Insulin dep HEENT: Yes Chronic Ear Infection Loss of Vision: Denies Hearing Impairment: Denies Cancer: No Psychosocial: Yes Depression Integumentary: No Blood Disorders: No Family Medical History Cardiovascular disease 19 MOTHER Kidney disease 19 MOTHER Heart Disease, Renal Disease SOCIAL HISTORY: -SMOKES 1 PPD - HISTORY OF HEAVY DAILY, ETOH USE - HISTORY OF METH USE ( SNORTED IT AND SMOKED IT--DENIES IV USE) WELL THC USE AND CORICIDIN HPB "JET FUEL" HE ALSO SMOKES MARIJUANA DAILY. MULTIPLE EPISODES OF DKA EXTREME NON-COMPLIANCE IN ALL ASPECTS OF CARE Physical Exam Vital Signs Vital Signs - First Documented 02/12/23 21:07 Temp 36.2 Pulse 109 Resp 30 B/P (MAP) 121/82 (95) Pulse Ox 100 Capillary Refill : Height, Weight, BMI Height: 5'11.00" Weight: 130lbs. oz. 58.379241mh; 19.75 BMI Method:Actual General Appearance: Cachetic, Other (LETHARGIC, UNKEMPT, DIRTY, MALODOROUS, HAIR VERY LONG AND UNKEMPT AND MATTED. REEKS OF CIGARETTES AND MARIJUANA. ) HEENT: Other (ORAL MUCOSA IS EXTREMELY DRY) Neck: Normal Inspection Respiratory: No Accessory Muscle Use, Other (RESPIRATIONS SHALLOW AND TACHYPNEIC WITH RESP RATE 30) Cardiovascular: No JVD, No Murmur, Tachycardia Gastrointestinal: Soft, Abnormal Bowel Sounds (RARE), Tenderness (MILD DIFFUSE TENDERNESS) Extremity: Normal Range of Motion, No Pedal Edema, Slow Capillary Refill Neurologic/Psychiatric: Alert, Oriented x3, No Motor/Sensory Deficits, Other (LETHARGIC) Skin: Cool (DRY), Pallor Focused Exam Lactate Level 02/12/23 21:26: Lactic Acid Level 5.32*H Lactic Acid Level Laboratory Tests Test 02/12/23 21:26 Lactic Acid Level 5.32 MMOL/L (0.50-2.00) *H Progress/Results/Core Measures Suspected Sepsis SIRS Temperature: Pulse: Respiratory Rate: Laboratory Tests 02/12/23 21:26: White Blood Count 25.7H Blood Pressure / Mean: 02/12/23 21:26: Lactic Acid Level 5.32*H Laboratory Tests 02/12/23 21:26: Creatinine 2.47H, INR Comment 1.1, Platelet Count 319, Total Bilirubin 0.7 Results/Orders Lab Results Laboratory Tests Test 02/12/23 21:15 02/12/23 21:17 02/12/23 21:26 02/12/23 21:33 Range/Units Glucometer 568 *H 70-110 MG/DL Influenza Type A (RT-PCR) Not Detected Not Detecte Influenza Type B (RT-PCR) Not Detected Not Detecte SARS-CoV-2 RNA (RT-PCR) Not Detected Not Detecte White Blood Count 25.7 H 4.3-11.0 10^3/uL Red Blood Count 6.42 H 4.30-5.52 10^6/uL Hemoglobin 20.3 H 13.3-17.7 g/dL Hematocrit 59 H 40-54 % Mean Corpuscular Volume 92 80-99 fL Mean Corpuscular Hemoglobin 32 25-34 pg Mean Corpuscular Hemoglobin Concent 34 32-36 g/dL Red Cell Distribution Width 12.5 10.0-14.5 % Platelet Count 319 130-400 10^3/uL Mean Platelet Volume 10.4 9.0-12.2 fL Immature Granulocyte % (Auto) 3 % Neutrophils (%) (Auto) 82 H 42-75 % Lymphocytes (%) (Auto) 9 L 12-44 % Monocytes (%) (Auto) 6 0-12 % Eosinophils (%) (Auto) 0 0-10 % Basophils (%) (Auto) 0 0-10 % Neutrophils # (Auto) 20.9 H 1.8-7.8 10^3/uL Lymphocytes # (Auto) 2.3 1.0-4.0 10^3/uL Monocytes # (Auto) 1.5 H 0.0-1.0 10^3/uL Eosinophils # (Auto) 0.1 0.0-0.3 10^3/uL Basophils # (Auto) 0.1 0.0-0.1 10^3/uL Immature Granulocyte # (Auto) 0.9 H 0.0-0.1 10^3/uL Neutrophils % (Manual) 87 % Lymphocytes % (Manual) 3 % Monocytes % (Manual) 4 % Basophils % (Manual) 2 % Band Neutrophils 4 % Platelet Estimate NORMAL Clumped Platelets SLIGHT Blood Morphology Comment NORMAL Prothrombin Time 13.9 12.2-14.7 SEC INR Comment 1.1 0.8-1.4 Activated Partial Thromboplast Time 28 24-35 SEC Sodium Level 132 L 135-145 MMOL/L Potassium Level 5.7 H 3.6-5.0 MMOL/L Chloride Level 91 L 98-107 MMOL/L Carbon Dioxide Level < 5 *L 21-32 MMOL/L Anion Gap 36 H 5-14 MMOL/L Blood Urea Nitrogen 28 H 7-18 MG/DL Creatinine 2.47 H 0.60-1.30 MG/DL Estimat Glomerular Filtration Rate 37 BUN/Creatinine Ratio 11 Glucose Level 580 *H 70-105 MG/DL Lactic Acid Level 5.32 *H 0.50-2.00 MMOL/L Calcium Level 10.4 H 8.5-10.1 MG/DL Corrected Calcium 8.5-10.1 MG/DL Magnesium Level 2.6 H 1.6-2.4 MG/DL Total Bilirubin 0.7 0.1-1.0 MG/DL Aspartate Amino Transf (AST/SGOT) 17 5-34 U/L Alanine Aminotransferase (ALT/SGPT) 34 0-55 U/L Alkaline Phosphatase 172 H 40-136 U/L Myoglobin 16.9 10.0-92.0 NG/ML Total Protein 10.7 H 6.4-8.2 GM/DL Albumin 5.7 H 3.2-4.5 GM/DL Amylase Level 55 25-125 U/L Lipase 40 8-78 U/L Beta-Hydroxybutyrate (Chem panel) 14.09 H 0.00-0.27 MMOL/L TSH [place] Testing 1.02 0.35-4.94 UIU/ML Salicylates Level < 5.0 L 5.0-20.0 MG/DL Acetaminophen Level < 10 L 10-30 UG/ML Serum Alcohol < 10 <10 MG/DL Blood Gas Puncture Site L RAD Blood Gas Patient Temperature 36.2 Arterial Blood pH 7.07 *L 7.37-7.43 Arterial Blood Partial Pressure CO2 9 *L 35-45 MMHG Arterial Blood Partial Pressure O2 120 H 79-93 MMHG Arterial Blood HCO3 2 *L 23-27 MMOL/L Arterial Blood Total CO2 2.6 *L 21.0-31.0 MMOL/L Arterial Blood Oxygen Saturation 98 94-100 % Arterial Blood Base Excess -26.7 L -2.5-2.5 MMOL/L Lloyd Test YES-POS Blood Gas Ventilator Setting NO Blood Gas Inspired Oxygen RA Test 02/12/23 22:50 Range/Units Urine Color YELLOW Urine Clarity CLEAR Urine pH 6.0 5-9 Urine Specific [place] >=1.030 1.016-1.022 Urine Protein 2+ H NEGATIVE Urine Glucose (UA) 3+ H NEGATIVE Urine Ketones 3+ H NEGATIVE Urine Nitrite NEGATIVE NEGATIVE Urine Bilirubin 1+ H NEGATIVE Urine Urobilinogen 0.2 < = 1.0 MG/DL Urine Leukocyte Esterase NEGATIVE NEGATIVE Urine RBC (Auto) TRACE-I H NEGATIVE Urine RBC 0-2 /HPF Urine WBC NONE /HPF Urine Squamous Epithelial Cells RARE /HPF Urine Crystals PRESENT H /LPF Urine Amorphous Sediment RARE KATTY URATES H /LPF Urine Bacteria TRACE /HPF Urine Casts PRESENT /LPF Urine Hyaline Casts 0-2 H /LPF Urine Mucus SMALL H /LPF Urine Culture Indicated NO Urine Opiates Screen NEGATIVE NEGATIVE Urine Oxycodone Screen NEGATIVE NEGATIVE Urine Methadone Screen NEGATIVE NEGATIVE Urine Propoxyphene Screen NEGATIVE NEGATIVE Urine Barbiturates Screen NEGATIVE NEGATIVE Ur Tricyclic Antidepressants Screen NEGATIVE NEGATIVE Urine Phencyclidine Screen NEGATIVE NEGATIVE Urine Amphetamines Screen NEGATIVE NEGATIVE Urine Methamphetamines Screen NEGATIVE NEGATIVE Urine Benzodiazepines Screen NEGATIVE NEGATIVE Urine Cocaine Screen NEGATIVE NEGATIVE Urine Cannabinoids Screen POSITIVE H NEGATIVE My Orders Orders - JASEN JUAREZ DO Covid 19 Inhouse Test (02/12/23 21:07) Influenza A And B By Pcr (02/12/23 21:07) Isolation Central Supply Req (02/12/23 21:07) Ed Iv/Invasive Line Start (02/12/23 21:10) Ekg Tracing (02/12/23 21:10) Monitor-Rhythm Ecg Trace Only (02/12/23 21:10) Acetaminophen (02/12/23 21:10) Alcohol (02/12/23 21:10) Amylase (02/12/23 21:10) Cbc With Automated Diff (02/12/23 21:10) Comprehensive Metabolic Panel (02/12/23 21:10) Drug Screen Stat (Urine) (02/12/23 21:10) Lactic Acid Analyzer (02/12/23 21:10) Lipase (02/12/23 21:10) Magnesium (02/12/23 21:10) Protime With Inr (02/12/23 21:10) Partial Thromboplastin Time (02/12/23 21:10) Thyroid Analyzer (02/12/23 21:10) Ua Culture If Indicated (02/12/23 21:10) Myoglobin Serum (02/12/23 21:10) Ed Iv/Invasive Line Start (02/12/23 21:10) Salicylate (02/12/23 21:10) Ed Iv/Invasive Line Start (02/12/23 21:22) Ns Iv 1000 Ml (Sodium Chloride 0.9%) (02/12/23 21:30) Manual Differential (02/12/23 21:26) Hemoglobin A1c (02/12/23 21:48) Arterial Blood Gas (02/12/23 21:33) Beta Hydroxybutyrate (02/12/23 21:26) Sodium Bicarbonate 8.4% Syr (Sodium Bica (02/12/23 22:15) Insulin (Regular) Human (Novolin R (Per (02/12/23 22:15) Ed Iv/Invasive Line Start (02/12/23 22:15) Ns Iv 1000 Ml (Sodium Chloride 0.9%) (02/12/23 22:15) Ed Iv/Invasive Line Start (02/12/23 22:20) Ns Iv 1000 Ml (Sodium Chloride 0.9%) (02/12/23 22:30) Medications Given in ED Current Medications Medications Dose Ordered Sig/Stephanie Route Start Time Stop Time Status Last Admin Dose Admin Insulin Human Regular 15 unit ONCE ONCE IV 02/12/23 22:15 02/12/23 22:17 DC 02/12/23 22:32 15 UNIT Sodium Bicarbonate 100 meq ONCE ONCE IV 02/12/23 22:15 02/12/23 22:17 DC 02/12/23 22:32 100 MEQ Vital Signs/I&O 02/12/23 02/12/23 21:07 23:00 Temp 36.2 Pulse 109 111 Resp 30 B/P (MAP) 121/82 (95) 115/72 Pulse Ox 100 99 02/13/23 00:00 Intake Total 1000 ml Balance 1000 ml Capillary Refill : Progress Note : Progress Note PLACED IN ISOLATION ROOM PPE WORN COVID TESTING DONE ACCUCHECK 568 ON ARRIVAL GIVEN: -IV FLUIDS -ZOFRAN -INSULIN -BICARB NO VOMITING DURING ER STAY, NAUSEA IMPROVED PT WAS ABLE TO VOID DURING ER STAY VITALS STABLE, AND HR DOWN PT IS NO LONGER HYPERVENTILATING, AND APPEARS CALMER AT TIME OF ADMIT. PT DOES HAVE LEUKOCYTOSIS, BUT NO EVIDENCE OF SEPSIS OR INFECTIOUS ETIOLOGY. THIS IS TYPICAL FOR PT WHEN PT IS SEVERELY DEHYDRATED AND IN DKA DISCUSSED TEST RESULTS, AND PT AGREES TO ADMIT. REVIEWED PRIOR RECORDS, INCLUDING ER VISITS, ADMITS/H&P'S/CONSULTS/DISCHARGE SUMMARIES, TESTS/PROCEDURES PT WITH A MULTITUDE OF VISITS--NEARLY ALL FOR DKA/DIABETES RELATED COMPLAINTS-- PT HAS BEEN HERE FOR DKA 12 TIMES SINCE 2019 ECG Initial ECG Impression Date: February 12, 2023 Initial ECG Impression Time: 21:40 Initial ECG Rate: 120 Initial ECG Rhythm: S.Tach Initial ECG Intervals IA 127 QRS 64 QT/QTC 272/343 Initial ECG Comparisson: Unchanged Departure Communication (Admissions) 2209--SPOKE WITH DR. SALEEM, HOSPITALIST, ACCEPTS PT FOR ADMIT. HE AGREES THAT SEPTIC WORK UP IS NOT NECESSARY AT THIS TIME. 2212--REPORT TO E-ICU PHYSICIAN, DR. PATEL. Impression Primary Impression: DKA (diabetic ketoacidosis) Additional Impressions: Type 1 diabetes mellitus Acute kidney injury Non-compliance Leukocytosis Dehydration Electrolyte imbalance Polysubstance abuse Disposition: ADMITTED INPATIENT Condition: Stable/Unchanged Admissions Decision to Admit Reason: Admit from ER (General) Decision to Admit/Date: February 12, 2023 Time/Decision to Admit Time: 22:10 Departure-Patient Inst. Referrals: GERARDO ENNIS DO (PCP/Family) Primary Care Physician JASEN JUAREZ DO February 12, 2023 21:13
[2023-02-12] MEDS ORDERED: NS IV 1000 ML 1,000 ML IV SCH ×3 (21:30→22:30)
[2023-02-12 21:37] LABS: BASOPHILS # (AUTO) 0.1 10^3/uL (0.0-0.1); BASOPHILS % (AUTO) 0 % (0-10); EOSINOPHILS # (AUTO) 0.1 10^3/uL (0.0-0.3); EOSINOPHILS % (AUTO) 0 % (0-10); HEMATOCRIT 59 % (40-54); HEMOGLOBIN 20.3 g/dL (13.3-17.7); LYMPHOCYTES # (AUTO) 2.3 10^3/uL (1.0-4.0); LYMPHOCYTES % (AUTO) 9 % (12-44); MEAN CORPUSCULAR HEMOGLOBIN 32 pg (25-34); MEAN CORPUSCULAR HGB CONC 34 g/dL (32-36); MEAN CORPUSCULAR VOLUME 92 fL (80-99); MEAN PLATELET VOLUME 10.4 fL (9.0-12.2); MONOCYTES # (AUTO) 1.5 10^3/uL (0.0-1.0); MONOCYTES % (AUTO) 6 % (0-12); NEUTROPHILS # (AUTO) 20.9 10^3/uL (1.8-7.8); NEUTROPHILS % (AUTO) 82 % (42-75); PLATELET COUNT 319 10^3/uL (130-400); WHITE BLOOD COUNT 25.7 10^3/uL (4.3-11.0)
[2023-02-12 21:54] LABS: ALBUMIN 5.7 GM/DL (3.2-4.5); CHLORIDE 91 MMOL/L (98-107); POTASSIUM 5.7 MMOL/L (3.6-5.0); SALICYLATE < 5.0 MG/DL (5.0-20.0); SODIUM 132 MMOL/L (135-145)
[2023-02-12 21:55] LABS: AMYLASE 55 U/L (25-125); CALCIUM 10.4 MG/DL (8.5-10.1)
[2023-02-12 21:57] LABS: TOTAL PROTEIN 10.7 GM/DL (6.4-8.2)
[2023-02-12 21:58] LABS: BILIRUBIN,TOTAL 0.7 MG/DL (0.1-1.0)
[2023-02-12 22:00] LABS: ACETAMINOPHEN < 10 UG/ML (10-30); ALKALINE PHOSPHATASE 172 U/L (40-136); CREATININE SERUM 2.47 MG/DL (0.60-1.30); GFR ESTIMATED 37; INR 1.1 (0.8-1.4); PROTHROMBIN TIME PATIENT 13.9 SEC (12.2-14.7)
[2023-02-12 22:01] LABS: BUN/CREATININE RATIO 11
[2023-02-12 22:02] LABS: ABG BASE EXCESS -26.7 MMOL/L (-2.5-2.5); ABG OXYGEN SATURATION 98 % (94-100); ABG PO2 120 MMHG (79-93)
[2023-02-12 22:03] LABS: ALANINE AMINOTRANSFERASE 34 U/L (0-55); MAGNESIUM 2.6 MG/DL (1.6-2.4)
[2023-02-12 22:04] LABS: LIPASE 40 U/L (8-78)
[2023-02-12 22:05] LABS: BAND NEUTROPHILS 4 %; BASOPHILS % (MANUAL) 2 %; LYMPHOCYTES % (MANUAL) 3 %; MONOCYTES % (MANUAL) 4 %; NEUTROPHILS % (MANUAL) 87 %
[2023-02-12 22:06] LABS: PLATELET CLUMPS SLIGHT; PLATELET ESTIMATE NORMAL; RBC MORPH NORMAL
[2023-02-12 22:06] LABS: ABG PCO2 9 MMHG (35-45); ABG PH 7.07 (7.37-7.43)
[2023-02-12 22:07] LABS: ABG TCO2 2.6 MMOL/L (21.0-31.0); ALLENS TEST YES-POS
[2023-02-12 22:08] LABS: CARBON DIOXIDE < 5 MMOL/L (21-32); GLUCOSE 580 MG/DL (70-105)
[2023-02-12 22:08] LABS: INSPIRED O2 RA; PATIENT TEMP 36.2; VENTILATOR NO
[2023-02-12] MEDS ORDERED: inSUlin (REGULAR) HUMAN 1 UNIT/0.01 ML (CHARGE PER UNIT) IV ONE (22:15)
[2023-02-12] MEDS ORDERED: SODIUM BICARB 8.4% 50 MEQ/50 ML (ABBOTT) SYR IV ONE (22:15)
[2023-02-12 22:24] LABS: TSH (THYROID ANALYZER) 1.02 UIU/ML (0.35-4.94)
[2023-02-12 22:59] LABS: CLARITY,URINE CLEAR; COLOR,URINE YELLOW; GLUCOSE, URINE (UA) 3+ (NEGATIVE); KETONES,URINE 3+ (NEGATIVE); LEUKOCYTE ESTERASE ,URINE NEGATIVE (NEGATIVE); NITRITE,URINE NEGATIVE (NEGATIVE); PROTEIN,URINE 2+ (NEGATIVE)
[2023-02-12 23:12] LABS: AMPHETAMINE SCREEN, URINE NEGATIVE (NEGATIVE); BARBITURATE SCREEN URINE NEGATIVE (NEGATIVE); BENZODIAZEPINES SCREEN URINE NEGATIVE (NEGATIVE); CANNABINOID SCREEN, URINE POSITIVE (NEGATIVE); COCAINE SCREEN URINE NEGATIVE (NEGATIVE); METHADONE STAT NEGATIVE (NEGATIVE); OPIATE SCREEN URINE NEGATIVE (NEGATIVE); OXYCODONE STAT NEGATIVE (NEGATIVE); PROPOXYPHENE STAT NEGATIVE (NEGATIVE); TRICYCLIC ANTIDEPRESSANTS SCRE NEGATIVE (NEGATIVE)
[2023-02-12 23:13] LABS: BILIRUBIN,URINE 1+ (NEGATIVE)
[2023-02-12 23:15] LABS: AMORPHOUS SEDIMENT,UR RARE AMOR URATES /LPF; BACTERIA,URINE TRACE /HPF; HYALINE CASTS, URINE 0-2 /LPF; RBC,URINE 0-2 /HPF; SQUAMOUS EPITHELIAL CELL,UR RARE /HPF
[2023-02-12] MEDS ORDERED: NS IV 500 ML 500 ML IV PRN (23:30)
[2023-02-13] MEDS ORDERED: ONDANSETRON 4 MG/2 ML (SDV) Z0FRAN IV PRN (00:15)
[2023-02-13] MEDS ORDERED: NS IV 1000 ML 1,000 ML IV SCH (00:15)
[2023-02-13] MEDS: 1/2 NS IV SOLUTION 1,000 ML IV SCH ×6 (00:38→20:22)
--- NOTE | 2023-02-13 00:43 | Tele-ICU Progress Note ---
Progress Note 22M with DM1, poor compliance with multiple DKA admissions now addmitted with DKA. Most recently admitted 01/19-01/21/23 for DKA. Since discharge has not had any insulin. Found to have glucose 580, bicarb <5, gap 36, pH 7.07, b-hydroxy 14.09. Also in acute renal failure with BUN 28, creat 2.47. - DKA: insulin gtt per protocol, serial lab monitoring. - MIRTHA: volume resuscitation, monitor renal function, avoid nephrotoxins. - leukocytosis: chart reviewed, usually has WBC around 14 on DKA presentations. Now 25. Notably was 28 on 01/19 admit, but urine culture was positive for beta hemolytic strep. Received cefepime 01/19-01/21. No sensitivities documented. Will send cultures, give empiric zosyn. Patient assessed via real time audiovisual communication system. CCT 6 min Focused Exam Lactate Level 02/12/23 21:26: Lactic Acid Level 5.32*H Height, Weight, BMI Height: 5'11.00" Weight: 130lbs. oz. 58.298316ph; 18.00 BMI Method:Actual Lactic Acid Level Laboratory Tests Test 02/12/23 21:26 Lactic Acid Level 5.32 MMOL/L (0.50-2.00) *H CHRISTOPHER PATEL MD February 13, 2023 00:43
[2023-02-13 02:03] LABS: CHLORIDE 110 MMOL/L (98-107); POTASSIUM 4.4 MMOL/L (3.6-5.0); SODIUM 137 MMOL/L (135-145)
[2023-02-13 02:04] LABS: CALCIUM 7.5 MG/DL (8.5-10.1)
[2023-02-13 02:05] LABS: GLUCOSE 218 MG/DL (70-105)
[2023-02-13] MEDS: D5 1/2 NS 1000 ML IV SOLUTION 1,000 ML IV SCH ×5 (02:07→19:46)
[2023-02-13 02:09] LABS: CREATININE SERUM 1.32 MG/DL (0.60-1.30); GFR ESTIMATED 79
[2023-02-13 02:10] LABS: BUN/CREATININE RATIO 16
[2023-02-13] MEDS: PIPERACILLIN SODIUM/TAZOBACTAM 4.5 GM in NS (IVPB) 100 ML IV ONE ×2 (02:15→02:30)
[2023-02-13 02:18] LABS: CARBON DIOXIDE < 5 MMOL/L (21-32)
[2023-02-13] MEDS: POTASSIUM CL 10MEQ/50ML IVPB 50 ML IV SCH ×11 (02:30→22:48)
[2023-02-13 04:19] LABS: BASOPHILS % (AUTO) 0 % (0-10); EOSINOPHILS % (AUTO) 0 % (0-10); HEMATOCRIT 40 % (40-54); HEMOGLOBIN 14.2 g/dL (13.3-17.7); LYMPHOCYTES % (AUTO) 14 % (12-44); MEAN CORPUSCULAR HEMOGLOBIN 32 pg (25-34); MEAN CORPUSCULAR HGB CONC 36 g/dL (32-36); MEAN CORPUSCULAR VOLUME 88 fL (80-99); MEAN PLATELET VOLUME 10.4 fL (9.0-12.2); MONOCYTES # (AUTO) 2.2 10^3/uL (0.0-1.0); MONOCYTES % (AUTO) 8 % (0-12); NEUTROPHILS # (AUTO) 21.9 10^3/uL (1.8-7.8); NEUTROPHILS % (AUTO) 77 % (42-75); PLATELET COUNT 191 10^3/uL (130-400); WHITE BLOOD COUNT 28.6 10^3/uL (4.3-11.0)
[2023-02-13 04:28] LABS: ALBUMIN 3.4 GM/DL (3.2-4.5); POTASSIUM 4.5 MMOL/L (3.6-5.0)
[2023-02-13 04:29] LABS: CALCIUM 7.8 MG/DL (8.5-10.1)
[2023-02-13 04:30] LABS: TOTAL PROTEIN 6.2 GM/DL (6.4-8.2)
[2023-02-13 04:34] LABS: CREATININE SERUM 1.28 MG/DL (0.60-1.30); PHOSPHORUS 1.7 MG/DL (2.3-4.7)
[2023-02-13 04:37] LABS: MAGNESIUM 1.6 MG/DL (1.6-2.4)
[2023-02-13] MEDS: KCL 20 MEQ TAB (K-DUR) PO SCH (05:44)
[2023-02-13] MEDS: MAGNESIUM 1 GM/100 ML IVPB 100 ML IV SCH (05:44)
[2023-02-13] MEDS: PIPERACILLIN SODIUM/TAZOBACTAM 4.5 GM in NS (IVPB) 100 ML IV SCH ×3 (06:24→21:40)
--- NOTE | 2023-02-13 07:40 | Diagnostic Imaging Report ---
CHEST 1 VIEW, AP/PA ONLY INDICATION: Shortness of breath. COMPARISON: Chest radiograph 01/19/2023. FINDINGS: Lungs: Normal lung volume. No focal consolidation. Stable pulmonary vasculature. Pleura: No pleural effusion or pneumothorax. Heart and Mediastinum: Cardiomediastinal silhouette and great vessels of the thorax are stable. Osseous Structures and Soft Tissues: No acute osseous abnormality. Normal soft tissues. IMPRESSION: No acute cardiopulmonary process. Dictated by: Dictated on workstation # [id number]
[2023-02-13 08:05] LABS: POTASSIUM 3.9 MMOL/L (3.6-5.0)
[2023-02-13 08:06] LABS: CALCIUM 7.9 MG/DL (8.5-10.1)
[2023-02-13 08:10] LABS: CREATININE SERUM 1.19 MG/DL (0.60-1.30)
--- NOTE | 2023-02-13 15:18 | History & Physical-Hospitalist ---
[facility] 02/13/23 1518: History of Present Illness HPI/Chief Complaint This is a 22y M with PMH type 1 diabetes and bipolar disorder who presented to the ED yesterday with abdominal pain, nausea, vomiting and weakness. He has been taking insulin at varying dosages for the past few weeks as he cannot afford it. States he does take 42 units of long acting insulin most days. He was last admitted to this facility 01/19-01/21 with DKA. He has refused to follow with a PCP in the past. Today he reports he is still feeling tired but no weakness, pain, SOB, nausea/vomiting. His PCP is Dr. Luther though he does not see her regularly. Source: patient Exam Limitations: no limitations Date Seen 02/13/23 Time Seen by a Provider: 08:30 Attending Physician No,Local Physician PCP Admitting Physician: Elliot Saleem MD Attending Physician: Elliot Saleem MD Referring Physician Date of Admission February 12, 2023 at 23:13 Home Medications & Allergies Home Medications Reviewed patient Home Medication Reconciliation performed by pharmacy medication reconciliations laundry technician and/or nursing. Patients Allergies have been reviewed. Allergies Allergies Coded Allergies NKANo Known Allergies (Unverified Allergy, Mild, 02/08/09) Past Wkxvbrd-Vafrve-Ikwhoo Hx Patient Social History Tobacco Use?: Yes Tobacco type used: Cigarettes Smoking Status: Current Everyday Smoker Use of E-Cig and/or Vaping dev: Yes E-Cig or Vaping type used: Marijuana, Other Use of E-Cig and/or Vaping Alexys: Current Everyday User Substance use?: Yes Substance type: Methamphetamine, Marijuana Substance frequency: Daily Alcohol Use?: Yes Alcohol type: Hard Liquor Alcohol Frequency: Daily Pt feels they are or have been: No Immunizations Up To Date Date of Influenza Vaccine: Aug 05, 2020 First/Initial COVID19 Vaccinat: UNKNOWN DATE Second COVID19 Vaccination Parveen: UNKNOWN DATE Tetanus Booster (TDap): Unknown Seasonal Allergies Seasonal Allergies: No Current Status Advance Directives: No Communicates: Verbally Primary Language: Honduran Preferred Spoken Language: Honduran Is interpretation needed?: No Past Medical History Surgeries: Ear Surgery (tubes) Asthma Currently Using CPAP: No Currently Using BIPAP: No Sexually Transmitted Disease: No HIV/AIDS: No Diabetes, Insulin dep Chronic Ear Infection Loss of Vision: Denies Hearing Impairment: Denies Bipolar, Depression Blood Disorders: No Family Medical History Cardiovascular disease 19 MOTHER Kidney disease 19 MOTHER Heart Disease, Renal Disease SOCIAL HISTORY: -SMOKES 1 PPD - HISTORY OF HEAVY DAILY, ETOH USE - HISTORY OF METH USE ( SNORTED IT AND SMOKED IT--DENIES IV USE) WELL THC USE AND CORICIDIN HPB "JET FUEL" HE ALSO SMOKES MARIJUANA DAILY. MULTIPLE EPISODES OF DKA EXTREME NON-COMPLIANCE IN ALL ASPECTS OF CARE Review of Systems Constitutional: No chills, No fever; malaise EENTM: No blurred vision, No double vision Respiratory: No cough, No short of breath Cardiovascular: No chest pain, No edema Gastrointestinal: No abdominal pain, No nausea, No vomiting Genitourinary: No dysuria, No hematuria All Other Systems Reviewed Negative Unless Noted: Yes (Negative excepted noted.) Physical Exam Physical Exam Vital Signs Vital Signs - First Documented 02/12/23 02/12/23 21:07 23:30 Temp 36.2 Pulse 109 Resp 30 B/P (MAP) 121/82 (95) Pulse Ox 100 O2 Delivery Room Air Capillary Refill : Height, Weight, BMI Height: 5'11.00" Weight: 130lbs. oz. 58.818175xg; 17.13 BMI Method:Actual General Appearance: No Apparent Distress, Cachetic HEENT: PERRL/EOMI, Moist Mucous Membranes Neck: Full Range of Motion, Normal Inspection Respiratory: Lungs Clear, Normal Breath Sounds, No Respiratory Distress Cardiovascular: Regular Rate, Rhythm, No Edema, No Murmur Gastrointestinal: Non Tender, Soft Extremity: Non Tender, No Pedal Edema Neurologic/Psychiatric: Alert, Other (Flat affect) Skin: Normal Color, Warm/Dry Results Results/Procedures Labs Laboratory Tests 02/12/23 21:26 02/13/23 01:45 02/13/23 04:05 02/13/23 07:35 Patient resulted labs reviewed. Assessment/Plan Admission Diagnosis DKA Admission Status: Inpatient Order (span 2 midnights) Reason for Inpatient Admission: DKA Assessment and Plan DKA T1DM Dehydration MIRTHA-resolved Leukocytosis Anion Gap was 36 on arrival, now 17 BUN/Cr improving with fluids Continue fluids Continue insulin drip until tonight, then switch to long acting and sliding scale IV antibiotics, pending blood culture results - no infection identified as of now, leukocytosis possibly chronic, elevated 2/2 hemoconcentration Bipolar d/o Continue home meds Clinical Quality Measures Smoking Cessation Counseling: Counseling-Asymptomatic: 3-10 minutes ELLIOT SALEEM MD 02/13/23 1643: History of Present Illness Time Seen by a Provider: 10:20 Past Hctspkp-Tgfeko-Xarkvc Hx Family Medical History Cardiovascular disease 19 MOTHER Kidney disease 19 MOTHER Results Results/Procedures Imaging: Reviewed Imaging Report Assessment/Plan Admission Diagnosis Admission Status: Inpatient Order (span 2 midnights) Reason for Inpatient Admission: IV insulin IV fluids Assessment and Plan Admitted with DKA. Started on IV fluids and insulin. Acidosis and hyperglycemia improving. Continue drip, likely transition off tonight after giving slightly reduced dose of long acting insulin. Leukocytosis likely reactive, no evidence of acute infection. Will stop IV antibiotics tomorrow if no infectious source identified. Critical Care Critically Ill Patient Diagnosis/Problems Diagnosis/Problems (1) T1DM (type 1 diabetes mellitus) Status: Acute Qualifiers: Diabetes mellitus complication status: with ketoacidosis Diabetes mellitus complication detail: without coma Qualified Codes: E10.10 - Type 1 diabetes mellitus with ketoacidosis without coma (2) MIRTHA (acute kidney injury) Status: Acute (3) Leukocytosis Status: Acute Supervisory-Addendum Brief Verification & Attestation Participated in pt care: history, MDM, physical Personally performed: exam, history, MDM, supervision of care Care discussed with: Medical Student Procedures: n/a Results interpretation: Verified all documentation A medical student performed and documented this service in my presence. I reviewed and verified all information documented by the medical student and made modifications to such information, when appropriate. I personally performed the physical exam and medical decision making. ELENA KENNY February 13, 2023 15:18 ELLIOT SALEEM MD February 13, 2023 16:43
--- NOTE | 2023-02-13 22:11 | Progress Note ---
Standard Progress Note Progress Notes/Assess & Plan Date Seen by a Provider: February 13, 2023 Time Seen by a Provider: 22:09 Progress/Assessment & Plan called for to order nicotine patch, will order 14 mg q day MD JONO Child JOSEPH K MD February 13, 2023 22:11
[2023-02-13] MEDS: NICOTINE 14 MG (NICODERM) PATCH TD SCH (22:27)
[2023-02-14] MEDS: inSUlin ASPART (NovoLOG) 1 UNIT/0.01 ML (CHARGE PER UNIT) SC SCH ×7 (00:01→20:53)
[2023-02-14] MEDS: 1/2 NS IV SOLUTION 1,000 ML IV SCH ×4 (00:01→12:28)
[2023-02-14 03:25] LABS: BASOPHILS % (AUTO) 0 % (0-10); EOSINOPHILS # (AUTO) 0.1 10^3/uL (0.0-0.3); EOSINOPHILS % (AUTO) 1 % (0-10); HEMATOCRIT 43 % (40-54); HEMOGLOBIN 15.6 g/dL (13.3-17.7); LYMPHOCYTES % (AUTO) 25 % (12-44); MEAN CORPUSCULAR HEMOGLOBIN 31 pg (25-34); MEAN CORPUSCULAR HGB CONC 36 g/dL (32-36); MEAN CORPUSCULAR VOLUME 86 fL (80-99); MEAN PLATELET VOLUME 10.2 fL (9.0-12.2); MONOCYTES # (AUTO) 1.2 10^3/uL (0.0-1.0); MONOCYTES % (AUTO) 8 % (0-12); NEUTROPHILS # (AUTO) 10.5 10^3/uL (1.8-7.8); NEUTROPHILS % (AUTO) 66 % (42-75); PLATELET COUNT 212 10^3/uL (130-400); WHITE BLOOD COUNT 15.9 10^3/uL (4.3-11.0)
[2023-02-14 03:43] LABS: ALBUMIN 3.7 GM/DL (3.2-4.5); BILIRUBIN,TOTAL 0.9 MG/DL (0.1-1.0); CALCIUM 8.8 MG/DL (8.5-10.1); CREATININE SERUM 0.89 MG/DL (0.60-1.30); MAGNESIUM 1.9 MG/DL (1.6-2.4); PHOSPHORUS 1.7 MG/DL (2.3-4.7); POTASSIUM 3.4 MMOL/L (3.6-5.0); TOTAL PROTEIN 6.4 GM/DL (6.4-8.2)
[2023-02-14] MEDS: MAGNESIUM 1 GM/100 ML IVPB 100 ML IV SCH ×3 (03:58→05:57)
[2023-02-14] MEDS: POTASSIUM CL 10MEQ/50ML IVPB 50 ML IV SCH (03:58)
[2023-02-14] MEDS: KCL 20 MEQ TAB (K-DUR) PO SCH (03:59)
[2023-02-14] MEDS: PIPERACILLIN SODIUM/TAZOBACTAM 4.5 GM in NS (IVPB) 100 ML IV SCH ×3 (05:52→22:32)
[2023-02-14] MEDS ORDERED: KCL 20 MEQ TAB (K-DUR) PO ONE (08:00)
--- NOTE | 2023-02-14 09:21 | Tele-ICU Progress Note ---
Progress Note video rounds completed 22 y/o admitted with DKa an dpossible secondary infection Started on DKA protocol and zosyn AG has normalized PE: all VSS BS improved PLAN; continue DKA management and zosyn I am remotely monitoring this patient from another state. I am unable to do the bedside exam, and history/physical and pertinent information is taken from other notes in the computer and bedside staff. time spent in review 20 min Focused Exam Lactate Level 02/12/23 21:26: Lactic Acid Level 5.32*H 02/13/23 04:05: Lactic Acid Level 0.88 Height, Weight, BMI Height: 5'11.00" Weight: 130lbs. oz. 58.495817yw; 17.13 BMI Method:Actual Labs Laboratory Tests 02/14/23 03:13 Results Results/Procedures Labs Laboratory Tests 02/12/23 21:26 02/13/23 01:45 02/13/23 04:05 02/13/23 07:35 02/14/23 03:13 Patient resulted labs reviewed. Imaging: Reviewed Imaging Report Results Labs Labs Laboratory Tests 02/13/23 10:03: Glucometer 147H 02/13/23 11:01: Glucometer 121H 02/13/23 11:58: Glucometer 126H 02/13/23 12:56: Glucometer 173H 02/13/23 14:07: Glucometer 182H 02/13/23 15:15: Glucometer 170H 02/13/23 16:00: Glucometer 153H 02/13/23 17:07: Glucometer 115H 02/13/23 18:05: Glucometer 107 02/13/23 18:57: Glucometer 158H 02/13/23 19:56: Glucometer 205H 02/13/23 20:57: Glucometer 192H 02/13/23 21:59: Glucometer 165H 02/13/23 22:58: Glucometer 148H 02/14/23 00:00: Glucometer 109 02/14/23 03:12: Glucometer 53*L 02/14/23 03:13: White Blood Count 15.9H, Red Blood Count 5.02, Hemoglobin 15.6, Hematocrit 43, Mean Corpuscular Volume 86, Mean Corpuscular Hemoglobin 31, Mean Corpuscular Hemoglobin Concent 36, Red Cell Distribution Width 12.5, Platelet Count 212, Mean Platelet Volume 10.2, Immature Granulocyte % (Auto) 1, Neutrophils (%) ( Auto) 66, Lymphocytes (%) (Auto) 25, Monocytes (%) (Auto) 8, Eosinophils (%) (Auto) 1, Basophils (%) (Auto) 0, Neutrophils # (Auto) 10.5H, Lymphocytes # (Auto) 4.0, Monocytes # (Auto) 1.2H, Eosinophils # (Auto) 0.1, Basophils # (Auto) 0.0, Immature Granulocyte # (Auto) 0.1, Sodium Level 140, Potassium Level 3.4L, Chloride Level 112H, Carbon Dioxide Level 17L, Anion Gap 11, Blood Urea Nitrogen 8, Creatinine 0.89, Estimat Glomerular Filtration Rate 126, BUN/Creatinine Ratio 9, Glucose Level 50*L, Calcium Level 8.8, Corrected Calcium 9.0, Phosphorus Level 1.7L, Magnesium Level 1.9, Total Bilirubin 0.9, Aspartate Amino Transf (AST/SGOT) 13, Alanine Aminotransferase (ALT/SGPT) 15, Alkaline Phosphatase 78, Total Protein 6.4, Albumin 3.7, Beta-Hydroxybutyrate (Chem panel) 1.22H 02/14/23 03:31: Glucometer 58*L 02/14/23 04:02: Glucometer 102 02/14/23 05:53: Glucometer 150H Microbiology 02/13/23 MRSA Screen - Final, Complete MRSA not isolated MARSHAL HERNANDEZ MD February 14, 2023 09:21
--- NOTE | 2023-02-14 13:36 | Progress Note - Hospitalist ---
[facility] 02/14/23 1336: Subjective HPI/CC On Admission This is a 22y M with PMH type 1 diabetes and bipolar disorder who presented to the ED yesterday with abdominal pain, nausea, vomiting and weakness. He has been taking insulin at varying dosages for the past few weeks as he cannot afford it. States he does take 42 units of long acting insulin most days. He was last admitted to this facility 01/19-01/21 with DKA. He has refused to follow with a PCP in the past. Today he reports he is still feeling tired but no weakness, pain, SOB, nausea/vomiting. His PCP is Dr. Luther though he does not see her regularly. Subjective/Events-last exam Overnight patient had an episode of low blood glucose, down to 50. At the time he had heart racing, sweating, shaking. He felt better after eating some food. Today he reports feeling nausea after he eats so he has to eat small amounts frequently. Notes that when not in hospital he only has 1 meal per day and takes 10-15 units short acting insulin with the meal. Review of Systems General: No Chills, No Night Sweats HEENT: No Visual Changes, No Sore Throat Pulmonary: No Dyspnea, No Cough Cardiovascular: No: Chest Pain, Palpitations Gastrointestinal: Nausea; No: Vomiting, Abdominal Pain Focused Exam Lactate Level 02/12/23 21:26: Lactic Acid Level 5.32*H 02/13/23 04:05: Lactic Acid Level 0.88 Objective Exam Vital Signs Vital Signs Date Time Temp Pulse Resp B/P (MAP) Pulse Ox O2 Delivery O2 Flow Rate FiO2 02/14/23 11:00 73 16 119/62 (78) Room Air 02/14/23 10:00 97 02/14/23 08:00 35.9 Capillary Refill : General Appearance: No Apparent Distress, Cachetic HEENT: PERRL/EOMI, Moist Mucous Membranes Respiratory: Lungs Clear, Normal Breath Sounds, No Respiratory Distress Cardiovascular: No Edema, No Murmur, Other (irregular rhythm) Gastrointestinal: Non Tender, Soft Neurologic/Psychiatric: Alert, Depressed Affect Skin: Normal Color, Warm/Dry Results/Procedures Lab Laboratory Tests 02/14/23 03:13 Patient resulted labs reviewed. Imaging: Reviewed Imaging Report Assessment/Plan Assessment and Plan Assess & Plan/Chief Complaint DKA T1DM Dehydration MIRTHA-resolved Leukocytosis Anion Gap closed - 11 BUN/Cr improved Long acting insulin decreased dose d/t hypoglycemia - 25 units Leukocytosis likely reactive, no evidence of acute infection at this time, stop if no infection identified on blood cultures Bipolar d/o Continue home meds Transfer to 4th floor, likely d/c tomorrow Clinical Quality Measures Smoking Cessation Counseling: Counseling-Asymptomatic: 3-10 minutes ELLIOT SALEEM MD 02/14/23 2012: Subjective HPI/CC On Admission Date Seen by Provider: February 14, 2023 Time Seen by Provider: 11:10 Assessment/Plan Assessment and Plan Assess & Plan/Chief Complaint DKA resolved. Transitioned to basal-bolus insulin. Decrease long-acting insulin due to hypoglycemia this morning. Transfer to medical floor. Diagnosis/Problems Diagnosis/Problems (1) T1DM (type 1 diabetes mellitus) Status: Acute Qualifiers: Qualified Codes: E10.10 - Type 1 diabetes mellitus with ketoacidosis without coma (2) DKA (diabetic ketoacidosis) Status: Acute (3) MIRTHA (acute kidney injury) Status: Acute (4) Non-compliance Status: Acute Supervisory-Addendum Brief Verification & Attestation Participated in pt care: history, MDM, physical Personally performed: exam, history, MDM, supervision of care Care discussed with: Medical Student Procedures: n/a Results interpretation: Verified all documentation A medical student performed and documented this service in my presence. I reviewed and verified all information documented by the medical student and made modifications to such information, when appropriate. I personally performed the physical exam and medical decision making. ELENA KENNY February 14, 2023 13:36 ELLIOT SALEEM MD February 14, 2023 20:12
[2023-02-14] MEDS: NICOTINE 14 MG (NICODERM) PATCH TD SCH (19:31)
[2023-02-15] MEDS: PIPERACILLIN SODIUM/TAZOBACTAM 4.5 GM in NS (IVPB) 100 ML IV SCH (05:32)
[2023-02-15] MEDS: inSUlin ASPART (NovoLOG) 1 UNIT/0.01 ML (CHARGE PER UNIT) SC SCH ×2 (06:18)
[2023-02-15 09:25] VITALS: BP 101/67
--- NOTE | 2023-02-15 17:42 | Discharge Summary ---
Diagnosis/Chief Complaint Date of Admission February 12, 2023 at 23:13 Date of Discharge February 15, 2023 at 11:10 Discharge Date: February 15, 2023 Discharge Diagnosis 1. DKA--improved 2. Dehydration--resolved 3. Noncompliant Type 1 Diabetic mellitus--patient states he does not have supplies to check his blood sugar 4. Leukocytosis--improving, no sign of infection Discharge Summary Hospital Course Was the Problem List Reviewed?: Yes Hospital Course This is a 22 year old male with known diabetes mellitus insulin requiring with a history of noncompliance and recurrent DKA who presented to the emergency room with abdominal pain with nausea and vomiting. He was found to be in DKA with severe dehydration and leukocytosis. He was admitted to the ICU on an insulin drip and DKA protocol with aggressive IVF rehydration. He was given IV zosyn but there is no sign of infection and his WBC count is trending back to normal just with hydration and correction of his DKA. He states he has not been able to afford supplies to check his blood sugar so he just gives himself insulin based on how he feels and what he is able to eat. I have told him he needs to establish with [facility] so he can get his insulin and supplies to do accuchecks. He was transferred to the floor and switched to long acting insulin and actually had hypoglycemia with taking half his home dose of insulin. His blood sugar is now running in the low 100s and he is anxious to go home. I once again talked with him about following up with [facility] so he will be able to get his insulin and testing supplies. We have tried to get the patient on a CGM in the past but his insurance wanted him to do diabetes education and see endocrinology which he did not accomplish. I have attempted to schedule him with 2 endocrinologists in [place] but he never accomplished seeing either of them. Labs Laboratory Tests 02/12/23 21:15: Glucometer 568*H 02/12/23 21:17: 02/12/23 21:26: White Blood Count 25.7H, Red Blood Count 6.42H, Hemoglobin 20.3H, Hematocrit 59H , Neutrophils (%) (Auto) 82H, Lymphocytes (%) (Auto) 9L, Neutrophils # (Auto) 20.9H, Monocytes # (Auto) 1.5H, Immature Granulocyte # (Auto) 0.9H, Sodium Level 132L, Potassium Level 5.7H, Chloride Level 91L, Carbon Dioxide Level < 5*L, Anion Gap 36H, Blood Urea Nitrogen 28H, Creatinine 2.47H, Glucose Level 580*H, Mean Blood Glucose 286H, Hemoglobin A1c 11.6H, Lactic Acid Level 5.32*H, Calcium Level 10.4H, Magnesium Level 2.6H, Alkaline Phosphatase 172H, Total Protein 10.7H, Albumin 5.7H, Beta-Hydroxybutyrate (Chem panel) 14.09H, Salicylates Level < 5.0L, Acetaminophen Level < 10L 02/12/23 21:33: Arterial Blood pH 7.07*L, Arterial Blood Partial Pressure CO2 9*L, Arterial Blood Partial Pressure O2 120H, Arterial Blood HCO3 2*L, Arterial Blood Total CO2 2.6*L, Arterial Blood Base Excess -26.7L 02/12/23 22:50: Urine Protein 2+H, Urine Glucose (UA) 3+H, Urine Ketones 3+H, Urine Bilirubin 1+H, Urine RBC (Auto) TRACE-IH, Urine Crystals PRESENTH, Urine Amorphous Sediment RARE KATTY URATESH, Urine Hyaline Casts 0-2H, Urine Mucus SMALLH, Urine Cannabinoids Screen POSITIVEH 02/13/23 00:13: Glucometer 310H 02/13/23 01:24: Glucometer 256H 02/13/23 01:45: Chloride Level 110#H, Carbon Dioxide Level < 5*L, Anion Gap 22H, Blood Urea Nitrogen 21H, Creatinine 1.32H, Glucose Level 218H, Calcium Level 7.5L, Beta- Hydroxybutyrate (Chem panel) 8.81H 02/13/23 02:00: Glucometer 184H 02/13/23 03:04: Glucometer 239H 02/13/23 04:05: Glucometer 247H, White Blood Count 28.6H, Neutrophils (%) (Auto) 77H, Neutrophils # (Auto) 21.9H, Monocytes # (Auto) 2.2H, Immature Granulocyte # (Auto) 0.4H, Sodium Level 133L, Chloride Level 109H, Carbon Dioxide Level 7*L, Anion Gap 17H, Blood Urea Nitrogen 19H, Glucose Level 249H, Calcium Level 7.8L, Corrected Calcium 8.3L, Phosphorus Level 1.7L, Total Protein 6.2L 02/13/23 05:02: Glucometer 251H 02/13/23 06:02: Glucometer 192H 02/13/23 06:56: Glucometer 195H 02/13/23 07:35: Sodium Level 134L, Chloride Level 110H, Carbon Dioxide Level 13L, Glucose Level 185H, Calcium Level 7.9L 02/13/23 07:59: Glucometer 169H 02/13/23 08:58: Glucometer 135H 02/13/23 10:03: Glucometer 147H 02/13/23 11:01: Glucometer 121H 02/13/23 11:58: Glucometer 126H 02/13/23 12:56: Glucometer 173H 02/13/23 14:07: Glucometer 182H 02/13/23 15:15: Glucometer 170H 02/13/23 16:00: Glucometer 153H 02/13/23 17:07: Glucometer 115H 02/13/23 18:05: 02/13/23 18:57: Glucometer 158H 02/13/23 19:56: Glucometer 205H 02/13/23 20:57: Glucometer 192H 02/13/23 21:59: Glucometer 165H 02/13/23 22:58: Glucometer 148H 02/14/23 00:00: 02/14/23 03:12: Glucometer 53*L 02/14/23 03:13: White Blood Count 15.9H, Neutrophils # (Auto) 10.5H, Monocytes # (Auto) 1.2H, Potassium Level 3.4L, Chloride Level 112H, Carbon Dioxide Level 17L, Glucose Level 50*L, Phosphorus Level 1.7L, Beta-Hydroxybutyrate (Chem panel) 1.22H 02/14/23 03:31: Glucometer 58*L 02/14/23 04:02: 02/14/23 05:53: Glucometer 150H 02/14/23 10:43: Glucometer 213H 02/14/23 16:02: Glucometer 261H 02/14/23 20:09: Glucometer 135H 02/14/23 23:44: 02/15/23 02:37: Glucometer 61L 02/15/23 05:27: Glucometer 201H Procedures None. Discharge Physical Examination Allergies: Coded Allergies: NKANo Known Allergies (Unverified Allergy, Mild, 02/08/09) Vitals & I&Os Vital Signs Date Time Temp Pulse Resp B/P (MAP) Pulse Ox O2 Delivery O2 Flow Rate FiO2 02/15/23 09:25 36.5 82 18 101/67 98 Room Air General Appearance: Alert, Oriented X3 Psych/Mental Status: Mental Status NL, Mood NL Discharge Home Medications Reviewed and agree with Discharge Medication list on patient's Discharge Instruction sheet Instructions to Patient/Family Please see electronic discharge instructions given to patient. Clinical Quality Measures Smoking Cessation Counseling: Counseling-Asymptomatic: 3-10 minutes GERARDO ENNIS DO February 15, 2023 17:42
== END 2023-02-15 11:10 | disposition home or self-care (01) | DRG 638 ==
LOC: EDUNIT# 21:01 → ER 21:03 → ICU 23:13 → 4TH 02-14 14:52
PROVIDERS: ADMIT Internal Medicine; ATTEND Family Medicine
DX: E10.10 Type 1 diabetes mellitus with ketoacidosis without coma (principal); N17.9 Acute kidney failure, unspecified; E86.0 Dehydration; F12.10 Cannabis abuse, uncomplicated; F15.10 Other stimulant abuse, uncomplicated; F31.9 Bipolar disorder, unspecified; E10.649 Type 1 diabetes mellitus with hypoglycemia without coma; F17.210 Nicotine dependence, cigarettes, uncomplicated; F41.9 Anxiety disorder, unspecified; J45.909 Unspecified asthma, uncomplicated; D72.829 Elevated white blood cell count, unspecified; Z79.4 Long term (current) use of insulin; Z91.141 Patient's other noncompliance with medication regimen due to financial hardship; Z20.822 Contact with and (suspected) exposure to COVID-19; Z79.899 Other long term (current) drug therapy
CPT/HCPCS: 36415; 71045; 80048; 80053; 80306; 80320; 80329; 81000; 82010; 82150; 82805; 82947; 83036; 83605; 83690; 83735; 83874; 84100; 84443; 85007; 85025; 85027; 85610; 85730; 87040; 87081; 87088; 87636; 93005; 93041